=== PATIENT | female | born 1935 | race Caucasian/White ===

== ENCOUNTER 2016-06-25 07:42 | Emergency (ER) | payer MEDICARE, OTHER ==
[2016-06-25] MEDS ORDERED: FUROSEMIDE INJ/PF 40 MG/4 ML SDV IV ONE (08:38)
--- NOTE | 2016-06-25 08:43 | ER Document Report ---
ED General - General Information source: Patient TRAVEL OUTSIDE OF THE [place] IN LAST 30 DAYS: No - HPI Patient complains to provider of: Feet Swelling Onset: Last week Onset/Duration: Gradual, Persistent, Worse Associated symptoms: Nonproductive cough - Since Jul 2015, Leg swelling, Shortness of breath - with walking since Summer 2015 <GONZÁLEZ UP - Last Filed: 06/25/16 08:47> <VIRIDIANA AGUILERA - Last Filed: 06/25/16 12:26> - General Chief Complaint: Feet Swelling Stated Complaint: FOOT PAIN Notes: Patient is an 81-year-old female presenting to the emergency department concerned of swelling in her feet and lower legs. Patient states that she is always a little bit swollen, but this past week it has become severe. Patient states that the bottoms of her feet are numb, and the swelling extends all the way into her knees. Patient also mentions that she is short of breath when she walks, but this has been going on since summer. She also mentioned that she's had a cough since July 2015. Patient saw Dr. Payne 2 weeks ago and was put on oh water pill 20 mg daily, but today she took 2 of her 20 mg pills due to her fluid retention. (GONZÁLEZ UP) - Related Data Allergies/Adverse Reactions: Sulfa (Sulfonamide Antibiotics) Allergy (Intermediate, Verified 06/25/16 07:55) Generalized Itching morphine [Morphine] Adverse Reaction (Intermediate, Verified 06/25/16 07:55) Severe Nausea Past Medical History - General Information source: Patient - Social History Smoking Status: Never Smoker Chew tobacco use (# tins/day): No Frequency of alcohol use: None Drug Abuse: None Family History: Reviewed & Not Pertinent, Hypertension Patient has suicidal ideation: No Patient has homicidal ideation: No - Past Medical History Cardiac Medical History: Reports: Hx Congestive Heart Failure, Hx Hypertension - medicated Pulmonary Medical History: Reports: Hx Bronchitis Endocrine Medical History: Reports: Hx Hypothyroidism Renal/ Medical History: Reports: Hx End Stage Renal Disease - Stage IV, Hx Renal Insufficiency GI Medical History: Reports: Hx Gastritis, Hx Colonoscopy, Hx Endoscopy Musculoskeltal Medical History: Reports Hx Arthritis Past Surgical History: Reports: Hx Appendectomy, Hx Cholecystectomy, Hx Hysterectomy, Hx Orthopedic Surgery - stas tkr x 2 , foot , hand, Hx Pancreatic Surgery, Hx Thyroid Surgery - Immunizations Hx Diphtheria, Pertussis, Tetanus Vaccination: No Hx Pneumococcal Vaccination: 03/20/10 <GONZÁLEZ UP - Last Filed: 06/25/16 08:47> Review of Systems - Review of Systems Constitutional: No symptoms reported EENT: No symptoms reported Cardiovascular: No symptoms reported Respiratory: See HPI, Cough, Short of breath - when walking (since summer 2015) Gastrointestinal: No symptoms reported Genitourinary: No symptoms reported Female Genitourinary: No symptoms reported Musculoskeletal: See HPI, Leg swelling, Ankle swelling Skin: No symptoms reported Hematologic/Lymphatic: No symptoms reported Neurological/Psychological: No symptoms reported <GONZÁLEZ UP - Last Filed: 06/25/16 08:47> Physical Exam - Vital signs Interpretation: Hypertensive - General General appearance: Alert - HEENT Head: Normocephalic, Atraumatic Eyes: Normal Pupils: PERRL - Respiratory Respiratory status: No respiratory distress Chest status: Nontender Breath sounds: Rales Chest palpation: Normal - Cardiovascular Rhythm: Regular Heart sounds: Normal auscultation Murmur: Yes - Systolic Injection - Abdominal Inspection: Morbidly Obese Distension: No distension Bowel sounds: Normal Tenderness: Nontender Organomegaly: No organomegaly - Back Back: Normal, Nontender - Extremities General upper extremity: Normal inspection, Nontender, Normal color, Normal temperature General lower extremity: Nontender, Edema, Normal color, Normal ROM, Normal temperature, Normal weight bearing Calf: Other - Edema Ankle: Edema Foot: Edema - Neurological Neuro grossly intact: Yes Cognition: Normal Purdon Coma Scale Eye Opening: Spontaneous Purdon Coma Scale Verbal: Oriented Purdon Coma Scale Motor: Obeys Commands Oriana Coma Scale Total: 15 Speech: Normal - Psychological Associated symptoms: Normal affect, Normal mood - Skin Skin Temperature: Warm Skin Moisture: Dry Skin Color: Normal <GONZÁLEZ UP - Last Filed: 06/25/16 08:47> Course <GONZÁLEZ UP - Last Filed: 06/25/16 08:47> - Laboratory Result Diagrams: 06/25/16 09:00 06/25/16 09:00 - Diagnostic Test Radiology reviewed: Image reviewed, Reports reviewed - Chest x-ray does not show an acute process at this time. - EKG Interpretation by Ne EKG shows normal: Sinus rhythm, Tornado, Intervals, ST-T Waves. abnormal: QRS Complexes - Probable old inferior lateral DC is Rate: Normal - 79 Rhythm: NSR When compared to previous EKG there are: No significant change <VIRIDIANA AGUILERA - Last Filed: 06/25/16 12:26> - Re-evaluation Re-evalutation: 06/25/16 12:22 Patient has been up to urinate several times. Her room air pulse ox is 97% without tachycardia. She does have compression hose at home but she does not wear them. She was encouraged to begin using compression hose, and to elevate the feet above her heart as much as possible. She is also encouraged to follow-up with her primary care doctor in the office Tuesday for recheck. (She saw her doctor 2 weeks ago, but has not been back to see him since the swelling has started). ( VIRIDIANA AGUILERA) - Vital Signs Vital signs: Temp Pulse Resp BP Pulse Ox 97.7 F 86 15 155/98 H 98 06/25/16 07:57 06/25/16 07:57 06/25/16 11:18 06/25/16 11:18 06/25/16 11:18 (GONZÁLEZ UP) (VIRIDIANA AGUILERA) - Laboratory Laboratory results interpreted by me: 06/25/16 06/25/16 06/25/16 09:00 09:00 09:00 Hgb 11.7 L RDW 17.5 H Sodium 145.6 H BUN 32 H Creatinine 2.02 H Est GFR ( Amer) 29 L Est GFR (Non-Af Amer) 24 L NT-Pro-B Natriuret Pep 1870 H (VIRIDIANA AGUILERA) Discharge <GONZÁLEZ UP - Last Filed: 06/25/16 08:47> <VIRIDIANA AGUILERA - Last Filed: 06/25/16 12:26> - Discharge Clinical Impression: Peripheral edema, Renal insufficiency Condition: Stable Disposition: HOME, SELF-CARE Additional Instructions: Edema, Peripheral: You have swelling in your legs. This is called peripheral edema. It can be caused by "leaky capillaries," inflammation, disease of the leg veins, or excess salt and water in your body. Edema may be a sign of heart, kidney, or liver disease. A medical evaluation can determine if there is a serious underlying cause for your edema. Avoid prolonged standing. If you must sit for a long time, occasionally get up and walk around or elevate your legs. Support stockings can be helpful in limiting swelling. Often diuretic or water pills are used to remove excess salt and water from your body. Call the doctor or return if you develop increased swelling, pain, or redness, shortness of breath, chest pain, or any other significant change. ELEVATE THE FEET ABOVE YOUR HEART ALL THE TIME. USE YOUR COMPRESSION STOCKINGS. TRY TO LIMIT OR AVOID SODIUM IN YOUR DIET. FOLLOW UP WITH YOUR DOCTOR TUESDAY. RETURN TO THE EMERGENCY ROOM IF ANY NEW OR WORSENING SYMPTOMS. Referrals: TIERA LUGO MD [Primary Care Provider] - Follow up in 3-5 days Scribe Attestation: 06/25/16 12:26 I personally performed the services described in the documentation, reviewed and edited the documentation which was dictated to the scribe in my presence, and it accurately records my words and actions. (VIRIDIANA AGUILERA) Scribe Documentation - Scribe Written by Ben:: González Up 06/25/2016 08:39 acting as scribe for :: Jackie <GONZÁLEZ UP - Last Filed: 06/25/16 08:47>
[2016-06-25 09:38] LABS: ABSOLUTE EOSINOPHILS # (AUTO) 0.1 10^3/uL (0.0-0.6); ABSOLUTE LYMPHOCYTES (AUTO) 0.8 10^3/uL (0.5-4.7); ABSOLUTE MONOCYTES (AUTO) 0.6 10^3/uL (0.1-1.4); BASOPHILS % (AUTO) 0.8 % (0-2); EOSINOPHILS % (AUTO) 1.8 % (0-6); HEMATOCRIT 36.6 % (36.0-47.0); HEMOGLOBIN 11.7 g/dL (12.0-15.5); HGB HCT DIFFERENCE -1.5; LYMPHOCYTES % (AUTO) 13.7 % (13-45); MEAN CORPUSCULAR HEMOGLOBIN 30.7 pg (27.0-33.4); MEAN CORPUSCULAR HGB CONC 32.1 g/dL (32.0-36.0); MEAN CORPUSCULAR VOLUME 96 fl (80-97); MONOCYTES % (AUTO) 11.5 % (3-13); RED BLOOD COUNT 3.82 10^6/uL (3.72-5.28); RED CELL DISTRIBUTION WIDTH 17.5 % (11.5-14.0); SEGMENTED NEUTROPHILS % (AUTO) 72.2 % (42-78); WHITE BLOOD COUNT 5.5 10^3/uL (4.0-10.5)
[2016-06-25 10:04] LABS: BLOOD UREA NITROGEN 32 mg/dL (7-20); CALCIUM 9.6 mg/dL (8.4-10.2); CREATININE RESULT 2.02 mg/dL (0.52-1.25); GLUCOSE 92 mg/dL (75-110)
[2016-06-25 10:05] LABS: ALANINE AMINOTRANSFERASE 32 U/L (9-52); ALBUMIN 4.6 g/dL (3.5-5.0); ALKALINE PHOSPHATASE 61 U/L (38-126); ANION GAP 12 (5-19); ASPARTATE AMINO TRANSFERASE 35 U/L (14-36); BILIRUBIN,TOTAL 0.5 mg/dL (0.2-1.3); CARBON DIOXIDE 28 mmol/L (22-30); CHLORIDE 106 mmol/L (98-107); CREATINE KINASE 133 U/L (30-135); POTASSIUM 4.4 mmol/L (3.6-5.0); SODIUM 145.6 mmol/L (137-145); TOTAL PROTEIN 7.2 g/dL (6.3-8.2)
[2016-06-25 10:17] LABS: CREATINE KINASE MB 2.52 ng/mL (<4.55)
--- NOTE | 2016-06-25 10:18 | EKG REPORT ---
SEVERITY:- ABNORMAL ECG - SINUS RHYTHM PROBABLE INFERIOR INFARCT, OLD PROBABLE LATERAL INFARCT, OLD : Confirmed by: Perla Peralta 25-Jun-2016 10:17:41
[2016-06-25 10:24] LABS: TROPONIN I 0.046 ng/mL
[2016-06-25 13:23] VITALS: BP 131/58
== END 2016-06-25 12:52 | disposition home or self-care (01) ==
LOC: ER 07:42
DX: I12.9 Hypertensive chronic kidney disease with stage 1 through stage 4 chronic kidney disease, or unspecified chronic kidney disease (principal); N18.4 Chronic kidney disease, stage 4 (severe); R60.0 Localized edema; R05 Cough; R06.02 Shortness of breath; R20.0 Anesthesia of skin; R94.31 Abnormal electrocardiogram [ECG] [EKG]; R01.1 Cardiac murmur, unspecified; Z79.899 Other long term (current) drug therapy; Z88.2 Allergy status to sulfonamides
CPT/HCPCS: 93005; 99284; 96374; 36415; 82553; 82550; 85025; 80053; 84484; 83880; 71010; 93010; J1940

== ENCOUNTER → 2016-07-08 | Outpatient (CLI) | payer MEDICARE, OTHER ==
--- NOTE | 2016-07-08 09:16 | WOMENS IMAGING REPORT ---
EXAM DESCRIPTION: U/S ABDOMEN LIMITED COMPLETED DATE/TIME: 07/08/2016 8:23 am REASON FOR STUDY: R10.13 R10.13 EPIGASTRIC PAIN COMPARISON: MRI lumbar spine 03/11/2016 CT abdomen pelvis 09/15/2015 TECHNIQUE: Dynamic and static grayscale images acquired of the abdomen and recorded on PACS. Additio nal selected color Doppler and spectral images recorded. LIMITATIONS: Midline bowel gas, large body habitus FINDINGS: PANCREAS: Not well seen LIVER: Echogenic and difficult to penetrate with the ultrasound under G from fatty infiltration. No gross focal masses. LIVER VASCULATURE: Normal directional flow of the main portal vein and hepatic veins. GALLBLADDER: Surgically absent ULTRASOUND-DETECTED TELLEZ'S SIGN: Not applicable INTRAHEPATIC DUCTS AND COMMON DUCT: No intrahepatic biliary ductal dilatation. Common bile duct at t he law hepatis 6 to 7 mm in size. Distal most common duct not well seen. INFERIOR VENA CAVA: Not well seen AORTA: Not well seen RIGHT KIDNEY: Small, 8 cm in length with cortical thinning and increased echogenicity. 1.5 cm midpo le cyst PERITONEAL AND RIGHT PLEURAL SPACE: No ascites or effusions. OTHER: No other significant findings. TECHNICAL DOCUMENTATION: JOB ID: [id number] [employer]- All Rights Reserved
== END ==
LOC: WI 07:26
PROVIDERS: ATTEND Internal Medicine Gastroenterology
DX: R10.13 Epigastric pain (principal)
CPT/HCPCS: 76705

== ENCOUNTER → 2016-09-08 | Outpatient (CLI) | payer MEDICARE, OTHER ==
[2016-09-08 08:20] LABS: ABSOLUTE EOSINOPHILS # (AUTO) 0.4 10^3/uL (0.0-0.6); ABSOLUTE LYMPHOCYTES (AUTO) 1.5 10^3/uL (0.5-4.7); ABSOLUTE MONOCYTES (AUTO) 0.7 10^3/uL (0.1-1.4); ABSOLUTE NEUT (AUTO) 3.4 10^3/uL (1.7-8.2); BASOPHILS % (AUTO) 0.5 % (0-2); EOSINOPHILS % (AUTO) 6.1 % (0-6); HEMATOCRIT 35.9 % (36.0-47.0); HEMOGLOBIN 11.6 g/dL (12.0-15.5); HGB HCT DIFFERENCE -1.1; LYMPHOCYTES % (AUTO) 25.3 % (13-45); MEAN CORPUSCULAR HGB CONC 32.4 g/dL (32.0-36.0); MEAN CORPUSCULAR VOLUME 86 fl (80-97); MONOCYTES % (AUTO) 12.2 % (3-13); RED BLOOD COUNT 4.17 10^6/uL (3.72-5.28); SEGMENTED NEUTROPHILS % (AUTO) 55.9 % (42-78)
[2016-09-08 08:44] LABS: ALBUMIN 4.4 g/dL (3.5-5.0); ANION GAP 15 (5-19); BLOOD UREA NITROGEN 37 mg/dL (7-20); CARBON DIOXIDE 26 mmol/L (22-30); CHLORIDE 101 mmol/L (98-107); CREATININE RESULT 2.19 mg/dL (0.52-1.25); GLUCOSE 97 mg/dL (75-110); PHOSPHORUS 4.7 mg/dL (2.5-4.5); POTASSIUM 4.6 mmol/L (3.6-5.0); SODIUM 141.7 mmol/L (137-145)
[2016-09-09 10:20] LABS: VITAMIN D 25-HYDROXY 24.9 ng/mL (30.0-100.0)
[2016-09-09 11:40] LABS: CREATININE URINE 178.5 mg/dL (Not Estab.); MICROALBUMIN URINE 73.6 ug/mL (Not Estab.)
== END ==
LOC: OD 07:04
PROVIDERS: ATTEND Internal Medicine Nephrology
DX: N18.4 Chronic kidney disease, stage 4 (severe) (principal); N25.81 Secondary hyperparathyroidism of renal origin; D50.9 Iron deficiency anemia, unspecified
CPT/HCPCS: 36415; 80048; 82040; 82043; 82306; 82570; 83970; 84100; 85025

== ENCOUNTER → 2016-10-05 | Outpatient (CLI) | payer MEDICARE, OTHER | LOC: RAD 14:58 | PROVIDERS: ATTEND Specialist | DX: R05 Cough (principal); R06.02 Shortness of breath; R09.89 Other specified symptoms and signs involving the circulatory and respiratory systems | CPT/HCPCS: 71020 ==

== ENCOUNTER 2016-10-19 10:05 | Inpatient (IN) | payer MEDICARE, OTHER ==
--- NOTE | 2016-10-19 10:29 | ER Document Report ---
ED Medical Screen (RME) - General Chief Complaint: Black/Tarry Stools Stated Complaint: POSSIBLE BLOOD IN STOOL Time seen by provider: 10:28 Mode of Arrival: Ambulatory Information source: Patient Notes: This is an 81-year-old female with a history of hypertension, hypothyroidism, anemia (iron infusions by Dr. Choi), GI bleeding in the past (has been scoped in the past by Dr. Padron), arthritis. The patient presents with an episode of black stools yesterday. Patient states that she was coughing a lot this morning and started coughing up blood. The patient is unsure if it was in the vomitus or actually from the lungs.\ Primary care physician: Dr. Mcdonald TRAVEL OUTSIDE OF THE [place] IN LAST 30 DAYS: No - Related Data Allergies/Adverse Reactions: Sulfa (Sulfonamide Antibiotics) Allergy (Intermediate, Verified 10/19/16 10:22) Generalized Itching morphine [Morphine] Adverse Reaction (Intermediate, Verified 10/19/16 10:22) Severe Nausea Past Medical History - Past Medical History Cardiac Medical History: Reports: Hx Congestive Heart Failure, Hx Hypertension - medicated Pulmonary Medical History: Reports: Hx Bronchitis Endocrine Medical History: Reports: Hx Hypothyroidism Renal/ Medical History: Reports: Hx End Stage Renal Disease - Stage IV, Hx Renal Insufficiency. Denies: Hx Peritoneal Dialysis GI Medical History: Reports: Hx Gastritis, Hx Colonoscopy, Hx Endoscopy Musculoskeltal Medical History: Reports Hx Arthritis Past Surgical History: Reports: Hx Appendectomy, Hx Cholecystectomy, Hx Hysterectomy, Hx Orthopedic Surgery - stas tkr x 2 , foot , hand, Hx Pancreatic Surgery, Hx Thyroid Surgery - Immunizations Hx Diphtheria, Pertussis, Tetanus Vaccination: No Physical Exam - Vital signs Vitals: Temp Pulse Resp BP Pulse Ox 97.6 F 75 18 120/61 100 10/19/16 10:12 10/19/16 10:12 10/19/16 10:12 10/19/16 10:12 10/19/16 10:12 Course - Vital Signs Vital signs: Temp Pulse Resp BP Pulse Ox 97.6 F 75 18 120/61 100 10/19/16 10:19 10/19/16 10:12 10/19/16 10:19 10/19/16 10:19 10/19/16 10:19
[2016-10-19 11:27] LABS: ABSOLUTE BASOPHILS # (AUTO) 0.1 10^3/uL (0.0-0.2); ABSOLUTE EOSINOPHILS # (AUTO) 0.1 10^3/uL (0.0-0.6); ABSOLUTE LYMPHOCYTES (AUTO) 1.1 10^3/uL (0.5-4.7); ABSOLUTE MONOCYTES (AUTO) 0.7 10^3/uL (0.1-1.4); ABSOLUTE NEUT (AUTO) 4.8 10^3/uL (1.7-8.2); BASOPHILS % (AUTO) 1.1 % (0-2); EOSINOPHILS % (AUTO) 1.5 % (0-6); HEMATOCRIT 28.8 % (36.0-47.0); HEMOGLOBIN 9.4 g/dL (12.0-15.5); HGB HCT DIFFERENCE -0.6; LYMPHOCYTES % (AUTO) 16.7 % (13-45); MEAN CORPUSCULAR HEMOGLOBIN 26.8 pg (27.0-33.4); MEAN CORPUSCULAR HGB CONC 32.5 g/dL (32.0-36.0); MEAN CORPUSCULAR VOLUME 83 fl (80-97); MONOCYTES % (AUTO) 9.9 % (3-13); RED BLOOD COUNT 3.49 10^6/uL (3.72-5.28); RED CELL DISTRIBUTION WIDTH 15.6 % (11.5-14.0); SEGMENTED NEUTROPHILS % (AUTO) 70.8 % (42-78); WHITE BLOOD COUNT 6.7 10^3/uL (4.0-10.5)
--- NOTE | 2016-10-19 11:28 | ER Document Report ---
ED GI Bleed / Rectal Pain - General Chief Complaint: Black/Tarry Stools Stated Complaint: POSSIBLE BLOOD IN STOOL Time seen by provider: 10:45 Mode of Arrival: Ambulatory Information source: Patient Notes: 81-year-old female presented to ED for history of high blood pressure hypothyroid anemia and GI bleeding in the past has been scoped arthritis end- stage renal disease and congestive heart failure high blood pressure pancreatitis and arthritis. She's also has a history of gastritis and diverticulitis. She is in here today for dark blood in her stools yesterday and this morning TRAVEL OUTSIDE OF THE [place] IN LAST 30 DAYS: No - HPI Patient complains to provider of: Dark/tarry stools Onset: Yesterday Timing/Duration: Intermittent Quality of pain: Achy - Chronic pain to back or arms and legs no complaint of abdominal pain today Rectal bleeding: Blood streaks on stool Dark Stools: Black Rectal foreign body: No Rectal pain with intercourse: No Associated symptoms: Back pain, Bruising/bleeding gums Exacerbated by: Denies Relieved by: Denies Similar symptoms previously: Yes Recently seen / treated by doctor: Yes - Related Data Allergies/Adverse Reactions: Sulfa (Sulfonamide Antibiotics) Allergy (Intermediate, Verified 10/19/16 10:22) Generalized Itching morphine [Morphine] Adverse Reaction (Intermediate, Verified 10/19/16 10:22) Severe Nausea Home Medications: Current Home Medications Benzonatate [Tessalon Perle 100 mg Capsule] 100 mg PO QAM 10/19/16 [History] Benzonatate [Tessalon Perle 100 mg Capsule] 200 mg PO QPM 10/19/16 [History] Calcium Acetate [Phoslo 667 mg Capsule] 667 mg PO MEALS 10/19/16 [History] Cyclosporine 0.05% Oph Emulsio [Restasis 0.05% Oph Emulsion Pf 0.4 ml] 1 drop OU BID 10/19/16 [History] Fexofenadine HCl [Noemí] 180 mg PO DAILY 10/19/16 [History] Furosemide [Lasix] 20 mg PO QAM 10/19/16 [History] Gabapentin [Neurontin] 600 mg PO QHS 10/19/16 [History] Levothyroxine Sodium [Synthroid] 50 mcg PO QAM 10/19/16 [History] Loteprednol Etabonate [Lotemax 0.5% Ophth Susp] 1 drop OU QPM 10/19/16 [History] Lubiprostone [Amitiza 8 Mcg Capsule] 8 mcg PO DAILY 10/19/16 [History] Mirabegron [Myrbetriq] 50 mg PO DAILY 10/19/16 [History] Pantoprazole Sodium [Protonix] 40 mg PO BID 10/19/16 [History] Pregabalin [Lyrica 50 mg Capsule] 50 mg PO Q12 10/19/16 [History] Sennosides [Senna] 8.6 mg PO BID 10/19/16 [History] Temazepam [Restoril] 30 mg PO QHS 10/19/16 [History] Tramadol HCl [Ultram] 50 mg PO Q6HP PRN 10/19/16 [History] Valsartan [Diovan 160 mg Tablet] 160 mg PO Q12 10/19/16 [History] Past Medical History - General Information source: Patient - Social History Smoking Status: Former Smoker Cigarette use (# per day): No Chew tobacco use (# tins/day): No Smoking Education Provided: No Frequency of alcohol use: None Drug Abuse: None Occupation: retired Lives with: Family Family History: CAD, Hypertension Patient has suicidal ideation: No Patient has homicidal ideation: No - Past Medical History Cardiac Medical History: Reports: Hx Congestive Heart Failure, Hx Hypertension - medicated Pulmonary Medical History: Reports: Hx Bronchitis EENT Medical History: Reports: None Neurological Medical History: Reports: None Endocrine Medical History: Reports: Hx Hypothyroidism Renal/ Medical History: Reports: Hx End Stage Renal Disease - Stage IV, Hx Renal Insufficiency Malignancy Medical History: Reports: None GI Medical History: Reports: Hx Diverticulitis, Hx Gastritis, Hx Colonoscopy, Hx Endoscopy, Other - Pancreatitis Musculoskeltal Medical History: Reports Hx Arthritis, Reports Hx Musculoskeletal Deformity, Reports Hx Musculoskeletal Trauma Skin Medical History: Reports None Psychiatric Medical History: Reports: None Traumatic Medical History: Reports: None Infectious Medical History: Reports: None Past Surgical History: Reports: Hx Appendectomy, Hx Cholecystectomy, Hx Hysterectomy, Hx Orthopedic Surgery - stas tkr x 2 , foot , hand, Hx Pancreatic Surgery, Hx Thyroid Surgery - Immunizations Hx Diphtheria, Pertussis, Tetanus Vaccination: No Hx Pneumococcal Vaccination: 03/20/10 Review of Systems - Review of Systems Constitutional: No symptoms reported EENT: No symptoms reported Cardiovascular: No symptoms reported Respiratory: No symptoms reported Gastrointestinal: No symptoms reported Genitourinary: No symptoms reported Female Genitourinary: No symptoms reported Musculoskeletal: Back pain - Chronic, Joint pain - Chronic, Muscle pain - Chronic, Muscle stiffness - Chronic Skin: No symptoms reported Hematologic/Lymphatic: No symptoms reported Neurological/Psychological: No symptoms reported -: Yes All other systems reviewed and negative Physical Exam - Vital signs Vitals: Temp Pulse Resp BP Pulse Ox 97.6 F 75 18 120/61 100 10/19/16 10:12 10/19/16 10:12 10/19/16 10:12 10/19/16 10:12 10/19/16 10:12 Interpretation: Normal - General General appearance: Appears well, Alert - HEENT Head: Normocephalic, Atraumatic Eyes: Normal Pupils: PERRL - Respiratory Respiratory status: No respiratory distress Chest status: Nontender Breath sounds: Normal Chest palpation: Normal - Cardiovascular Rhythm: Regular Heart sounds: Normal auscultation Murmur: No - Abdominal Inspection: Normal Distension: No distension Bowel sounds: Normal Tenderness: Nontender Organomegaly: No organomegaly - Back Back: Normal, Nontender - Extremities General upper extremity: Normal inspection, Nontender, Normal color, Normal ROM , Normal temperature General lower extremity: Normal inspection, Nontender, Normal color, Normal ROM , Normal temperature, Normal weight bearing. No: Tyrone's sign - Neurological Neuro grossly intact: Yes Cognition: Normal Orientation: AAOx4 Mcfarland Coma Scale Eye Opening: Spontaneous Mcfarland Coma Scale Verbal: Oriented Oriana Coma Scale Motor: Obeys Commands Oriana Coma Scale Total: 15 Speech: Normal Motor strength normal: LUE, RUE, LLE, RLE Sensory: Normal - Psychological Associated symptoms: Normal affect, Normal mood - Skin Skin Temperature: Warm Skin Moisture: Dry Skin Color: Normal Course - Re-evaluation Re-evalutation: 10/19/16 12:12 Just called operated to consult Dr. Chand concerning her renal patient who states that she has refused dialysis and today she has a potassium of 6.0. 10/19/16 12:[address] Toth who recommended contacting Dr. Padron. Dr. Padron was consult that he stated he would be a consult if the patient is admitted. Consulted Dr. Chand who will be consult for this patient if she is admitted. Consulted Dr. Robert to admit the patient. Patient will be admitted to [facility] she will receive glucose 1 amp insulin 10 units IV 1 amp of calcium gluconate and albuterol nebulizers to reduce her potassium. She will also receive 500 mL of normal saline and been started on a renal diet. - Vital Signs Vital signs: Temp Pulse Resp BP Pulse Ox 97.6 F 75 15 122/51 L 100 10/19/16 10:19 10/19/16 10:12 10/19/16 16:00 10/19/16 15:01 10/19/16 16:00 - Laboratory Result Diagrams: 10/19/16 11:15 10/19/16 11:15 Laboratory results interpreted by me: 10/19/16 10/19/16 11:15 11:15 RBC 3.49 L Hgb 9.4 L Hct 28.8 L MCH 26.8 L RDW 15.6 H Potassium 6.0 H* Carbon Dioxide 21 L BUN 104 H Creatinine 5.62 H Est GFR ( Amer) 9 L Est GFR (Non-Af Amer) 7 L Discharge - Discharge Clinical Impression: Black tarry stools, Hyperkalemia Disposition: ADMITTED OBSERVATION Admitting Provider: Hospitalist - Dr Robert Unit Admitted: [facility]
[2016-10-19 11:32] LABS: PROTHROMBIN TIME 13.1 SEC (11.4-15.4)
[2016-10-19 11:52] LABS: ALANINE AMINOTRANSFERASE 30 U/L (9-52); ALBUMIN 3.8 g/dL (3.5-5.0); ALKALINE PHOSPHATASE 83 U/L (38-126); ANION GAP 14 (5-19); ASPARTATE AMINO TRANSFERASE 29 U/L (14-36); BILIRUBIN,DIRECT 0.4 mg/dL (0.0-0.4); BILIRUBIN,TOTAL 0.5 mg/dL (0.2-1.3); BLOOD UREA NITROGEN 104 mg/dL (7-20); CALCIUM 9.2 mg/dL (8.4-10.2); CARBON DIOXIDE 21 mmol/L (22-30); CHLORIDE 106 mmol/L (98-107); CREATININE RESULT 5.62 mg/dL (0.52-1.25); GLUCOSE 96 mg/dL (75-110); TOTAL PROTEIN 6.4 g/dL (6.3-8.2)
[2016-10-19] MEDS ORDERED: INSULIN REG, HUMAN 100 UNIT/ML 3 ML VIAL (PYX) IV ONE (12:36)
[2016-10-19] MEDS ORDERED: CALCIUM GLUCONATE 1000 MG/10 ML INJ IV ONE (12:38)
[2016-10-19] MEDS ORDERED: DEXTROSE 50%-WATER 25 GM/50 ML DISP.SYRIN IV ONE (12:38)
[2016-10-19] MEDS ORDERED: SODIUM POLYSTYRENE SULFONATE 15 GM/60 ML PO ONE (12:39)
[2016-10-19] MEDS ORDERED: ALBUTEROL SULFATE 0.083% NEB 2.5 MG/3 ML AMPUL NEB ONE (12:39)
[2016-10-19] MEDS ORDERED: NORMAL SALINE 500 ML IV ONE (13:10)
--- NOTE | 2016-10-19 13:20 | EKG REPORT ---
SEVERITY:- ABNORMAL ECG - SINUS RHYTHM ANTEROLATERAL INFARCT, OLD : Confirmed by: Lloyd Lockwood MD 19-Oct-2016 13:19:47
[2016-10-19] MEDS ORDERED: 1/2 NORMAL SALINE 1,000 ML IV PRN (14:26)
[2016-10-19 14:30] LABS: APPEARANCE,URINE CLEAR; BILIRUBIN,URINE NEGATIVE (NEGATIVE); GLUCOSE, URINE NEGATIVE (NEGATIVE); KETONES,URINE NEGATIVE (NEGATIVE); LEUKOCYTE ESTERASE,URINE NEGATIVE (NEGATIVE); NITRITE,URINE NEGATIVE (NEGATIVE); PROTEIN,URINE NEGATIVE (NEGATIVE); UROBILINOGEN,URINE NEGATIVE mg/dL (<2.0)
[2016-10-19] MEDS ORDERED: ONDANSETRON HCL INJ/PF 4 MG/2 ML SDV IV PRN (14:32)
--- NOTE | 2016-10-19 14:51 | PDOC H&P ---
History of Present Illness Admission Date/PCP: 10/19/16 12:52 TIERA LUGO MD Patient complains of: Black stools History of Present Illness: TARAN MANZANARES is a 81 year old female, with prior history of GI bleeding in the past, has been dealing with black stools for the last 6 months. Patient started to develop some dizziness 2 months ago. There is no hematemesis, no hematochezia. There is no vaginal bleeding, nor hematuria. Patient has been complaining of multiple nonspecific symptoms for a long period of time including headache, body aches and pain, shoulder aches and pain, knee pains, back pain, chronic cough, chronic shortness of breath, dyspnea on exertion. Denies any chest pain at rest, nor any PND nor orthopnea. Patient also had lower extremity edema chronically. History of chronic kidney disease in the past, and has refused dialysis. He presents to the emergency room today because of just generalized discomfort and black stools. Denies overuse of nonsteroidal [id number]. She does not remember all her medications at this time. In the emergency room, the urine was elevated, as well as potassium. Still appropriate blood was positive. Patient was then referred for admission. Patient received albuterol, insulin D50, calcium, Kayexalate. Past Medical History Past Medical History: Medication reconciliation pending verification from the patient's pharmacist. Cardiac Medical History: Reports: Congestive Heart Failure, Hypertension - medicated Pulmonary Medical History: Reports: Bronchitis EENT Medical History: Reports: None Neurological Medical History: Reports: None Endocrine Medical History: Reports: Hypothyroidism Renal/ Medical History: Reports: End Stage Renal Disease - Stage IV Malignancy Medical History: Reports: None GI Medical History: Reports: Diverticulitis, Other - Pancreatitis Musculoskeltal Medical History: Reports: Arthritis Skin Medical History: Reports: None Psychiatric Medical History: Reports: None Traumatic Medical History: Reports: None Hematology: Reports: Bleeding Tendencies Denies: Anemia, Sickle Cell Disease Infectious Medical History: Reports: None Past Surgical History Past Surgical History: Reports: Appendectomy, Cholecystectomy, Hysterectomy, Orthopedic Surgery - stas tkr x 2 , foot , hand Denies: Amputation Social History Information Source: Patient Lives with: Family Smoking Status: Former Smoker Frequency of Alcohol Use: None Hx Recreational Drug Use: No Drugs: None Hx Prescription Drug Abuse: No Family History Family History: CAD, Hypertension, Malignancy - Unrecalled type Parental Family History Reviewed: Yes Children Family History Reviewed: Yes Sibling(s) Family History Reviewed.: Yes Medication/Allergy Allergies/Adverse Reactions: Sulfa (Sulfonamide Antibiotics) Allergy (Intermediate, Verified 10/19/16 10:22) Generalized Itching morphine [Morphine] Adverse Reaction (Intermediate, Verified 10/19/16 10:22) Severe Nausea Review of Systems Constitutional: PRESENT: headache(s) - Chronic intermittent. ABSENT: chills, fever(s), weight gain, weight loss Eyes: PRESENT: visual disturbances Ears: ABSENT: hearing changes Nose, Mouth, and Throat: ABSENT: mouth pain, sore throat Cardiovascular: PRESENT: dyspnea on exertion, edema. ABSENT: chest pain, orthropnea, palpitations Respiratory: PRESENT: cough - Occasional. ABSENT: hemoptysis Gastrointestinal: PRESENT: melena. ABSENT: abdominal pain, coffee ground emesis , constipation, diarrhea, hematemesis, hematochezia, nausea, vomiting Genitourinary: ABSENT: difficulty urinating, dysuria, hematuria Musculoskeletal: PRESENT: other - Generalized muscle aches and pain and joint pain. ABSENT: joint swelling Integumentary: ABSENT: rash, wounds Neurological: ABSENT: abnormal gait, abnormal speech, confusion, dizziness, focal weakness, syncope Psychiatric: ABSENT: anxiety, depression, homidical ideation, suicidal ideation Endocrine: ABSENT: cold intolerance, heat intolerance, polydipsia, polyuria Hematologic/Lymphatic: ABSENT: easy bleeding, easy bruising Physical Exam Vital Signs: Temp Pulse Resp BP Pulse Ox 97.6 F 75 18 116/77 100 10/19/16 10:19 10/19/16 10:12 10/19/16 14:01 10/19/16 14:01 10/19/16 14:01 General appearance: PRESENT: no acute distress, cooperative, morbidly obese Head exam: PRESENT: atraumatic, normocephalic Eye exam: PRESENT: conjunctiva pink, EOMI, PERRLA - Sluggish however. ABSENT: scleral icterus Ear exam: PRESENT: normal external ear exam. ABSENT: drainage Mouth exam: PRESENT: moist, neck supple, tongue midline Neck exam: ABSENT: carotid bruit, JVD, lymphadenopathy, thyromegaly Respiratory exam: PRESENT: clear to auscultation stas. ABSENT: rales, rhonchi, wheezes Cardiovascular exam: PRESENT: RRR. ABSENT: diastolic murmur, rubs, systolic murmur Pulses: PRESENT: normal dorsalis pedis pul Vascular exam: PRESENT: normal capillary refill GI/Abdominal exam: PRESENT: hypoactive bowel sounds, soft. ABSENT: distended, guarding, mass - Exam is limited just increased abdominal girth, organolmegaly, rebound, tenderness Rectal exam: PRESENT: deferred Extremities exam: PRESENT: full ROM, pedal edema - Trace. ABSENT: calf tenderness, clubbing Neurological exam: PRESENT: alert, awake, oriented to person, oriented to place , oriented to time, oriented to situation Psychiatric exam: PRESENT: appropriate affect, normal mood. ABSENT: homicidal ideation, suicidal ideation Skin exam: PRESENT: dry, intact, warm. ABSENT: cyanosis, rash Results Laboratory Results: 10/19/16 14:05 Urine Color STRAW Urine Appearance CLEAR Urine pH 5.0 Ur Specific Carey 1.010 Urine Protein NEGATIVE Urine Glucose (UA) NEGATIVE Urine Ketones NEGATIVE Urine Blood NEGATIVE Urine Nitrite NEGATIVE Ur Leukocyte Esterase NEGATIVE Urine WBC (Auto) 2 Urine RBC (Auto) 1 Impressions: Chest X-Ray 10/19/16 10:30 IMPRESSION: NO ACUTE RADIOGRAPHIC FINDING IN THE CHEST. Assessment & Plan - Diagnosis (1) Black tarry stools Is this a current diagnosis for this admission?: Yes (2) Hyperkalemia Is this a current diagnosis for this admission?: Yes (3) Anemia Qualifiers: Anemia type: unspecified type Qualified Code(s): D64.9 - Anemia, unspecified (4) CKD (chronic kidney disease) stage 4, GFR 15-29 ml/min Is this a current diagnosis for this admission?: Yes (5) Congestive heart failure (CHF) Qualifiers: Congestive heart failure type: diastolic Congestive heart failure chronicity: unspecified congestive heart failure chronicity Qualified Code(s): I50.30 - Unspecified diastolic (congestive) heart failure Is this a current diagnosis for this admission?: Yes (8) Obstructive sleep apnea Is this a current diagnosis for this admission?: Yes (9) GERD (gastroesophageal reflux disease) Qualifiers: Esophagitis presence: esophagitis presence not specified Qualified Code(s): K21.9 - Gastro-esophageal reflux disease without esophagitis Is this a current diagnosis for this admission?: Yes (10) Seasonal allergies Qualifiers: Allergic rhinitis trigger: unspecified Qualified Code(s): J30.2 - Other seasonal allergic rhinitis Is this a current diagnosis for this admission?: Yes - Time Time Spent: 30 to 50 Minutes - Inpatient Certification Based on my medical assessment, after consideration of the patient's comorbidities, presenting symptoms, or acuity I expect that the services needed warrant INPATIENT care.: Yes I certify that my determination is in accordance with my understanding of Medicare's requirements for reasonable and necessary INPATIENT services [42 CFR 412.3e].: Yes Medical Necessity: Significant Comorbidiites Make Outpatient Treatment Too Risky , Need For IV Fluids, Need For Continuous Telemetry Monitoring - Plan Summary Plan Summary: Patient will be admitted to [facility]. Patient received albuterol, dextrose , insulin intravenously, calcium and Kayexalate in the emergency room. We will recheck potassium in 3-4 hours later. In the meantime we will consult nephrology for the renal failure. I will gently hydrate the patient, consult gastroenterology for further evaluation, start intravenous proton pump inhibitor , monitor hematocrit serially and transfuse as needed. VENKAT edwards and SCDs for DVT prophylaxis. Further testing depends and initial evaluation and per specialty recommendation as outlined above.
[2016-10-19 16:17] LABS: THYROID STIMULATING HORMONE 2.56 uIU/mL (0.47-4.68)
[2016-10-19] MEDS: ACETAMINOPHEN 325 MG TABLET PO PRN (16:24)
[2016-10-19] MEDS: DOCUSATE SODIUM 100 MG CAPSULE PO SCH (18:02)
[2016-10-19] MEDS: PANTOPRAZOLE SODIUM 40 MG VIAL IV SCH (21:55)
[2016-10-19] MEDS: HEPARIN SOD (PORCINE) 5,000 UNIT/ML 1 ML SYRINGE SUBCUT SCH (21:58)
[2016-10-20] MEDS: HEPARIN SOD (PORCINE) 5,000 UNIT/ML 1 ML SYRINGE SUBCUT SCH ×3 (05:07→21:38)
[2016-10-20 05:15] LABS: ABSOLUTE BASOPHILS # (AUTO) 0.1 10^3/uL (0.0-0.2); ABSOLUTE EOSINOPHILS # (AUTO) 0.2 10^3/uL (0.0-0.6); ABSOLUTE LYMPHOCYTES (AUTO) 1.6 10^3/uL (0.5-4.7); ABSOLUTE MONOCYTES (AUTO) 0.8 10^3/uL (0.1-1.4); ABSOLUTE NEUT (AUTO) 4.4 10^3/uL (1.7-8.2); BASOPHILS % (AUTO) 0.8 % (0-2); EOSINOPHILS % (AUTO) 2.2 % (0-6); HEMATOCRIT 25.4 % (36.0-47.0); HEMOGLOBIN 8.4 g/dL (12.0-15.5); HGB HCT DIFFERENCE -0.2; LYMPHOCYTES % (AUTO) 23.1 % (13-45); MEAN CORPUSCULAR HEMOGLOBIN 27.3 pg (27.0-33.4); MEAN CORPUSCULAR VOLUME 83 fl (80-97); MONOCYTES % (AUTO) 11.6 % (3-13); RED BLOOD COUNT 3.07 10^6/uL (3.72-5.28); RED CELL DISTRIBUTION WIDTH 15.7 % (11.5-14.0); SEGMENTED NEUTROPHILS % (AUTO) 62.3 % (42-78)
[2016-10-20 05:53] LABS: ANION GAP 13 (5-19); BLOOD UREA NITROGEN 102 mg/dL (7-20); CALCIUM 8.8 mg/dL (8.4-10.2); CARBON DIOXIDE 19 mmol/L (22-30); CHLORIDE 108 mmol/L (98-107); CREATININE RESULT 5.26 mg/dL (0.52-1.25); GLUCOSE 86 mg/dL (75-110); POTASSIUM 5.2 mmol/L (3.6-5.0); SODIUM 139.6 mmol/L (137-145)
[2016-10-20] MEDS: PANTOPRAZOLE SODIUM 40 MG VIAL IV SCH (09:37)
[2016-10-20] MEDS: DOCUSATE SODIUM 100 MG CAPSULE PO SCH ×2 (09:37→17:53)
--- NOTE | 2016-10-20 10:51 | PDOC PROGRESS REPORT ---
Subjective Progress Note for:: 10/20/16 Subjective:: Patient has cough. Been dealing with this for about 2 months. No shortness of breath, PND or orthopnea. Had and episode of vomiting the other day. Patient reports small amount of fresh blood. Stools has been chronically dark /black for several months. Due for iron infusion with Dr. Choi in the morning Physical Exam Vital Signs: Temp Pulse Resp BP Pulse Ox 98.7 F 74 20 115/62 100 10/20/16 08:00 10/20/16 08:00 10/20/16 08:00 10/20/16 08:00 10/20/16 08:00 Intake & Output 10/19/16 10/20/16 10/21/16 06:59 06:59 06:59 Intake Total 5 Balance 5 Weight 105 kg General appearance: PRESENT: no acute distress, obese Head exam: PRESENT: normocephalic Eye exam: PRESENT: EOMI, PERRLA Mouth exam: PRESENT: moist, neck supple Neck exam: ABSENT: JVD Respiratory exam: PRESENT: rhonchi - few bilateral Cardiovascular exam: PRESENT: RRR. ABSENT: gallop GI/Abdominal exam: PRESENT: soft. ABSENT: distended - Obese, tenderness Extremities exam: ABSENT: pedal edema Neurological exam: PRESENT: alert, awake, oriented to situation Skin exam: PRESENT: dry, warm. ABSENT: cyanosis Results Laboratory Results: 10/20/16 04:25 10/20/16 04:25 10/19/16 10/19/16 10/19/16 18:25 19:03 19:03 WBC RBC Hgb Hct MCV MCH MCHC RDW Plt Count Seg Neutrophils % Lymphocytes % Monocytes % Eosinophils % Basophils % Absolute Neutrophils Absolute Lymphocytes Absolute Monocytes Absolute Eosinophils Absolute Basophils Sodium Potassium 5.3 H Chloride Carbon Dioxide Anion Gap BUN Creatinine Est GFR ( Amer) Est GFR (Non-Af Amer) Glucose Calcium Stool Occult Blood POSITIVE Stool for White Cells NO WBCs SEEN 10/20/16 10/20/16 04:25 04:25 WBC 7.0 RBC 3.07 L Hgb 8.4 L Hct 25.4 L MCV 83 MCH 27.3 MCHC 33.0 RDW 15.7 H Plt Count 139 L Seg Neutrophils % 62.3 Lymphocytes % 23.1 Monocytes % 11.6 Eosinophils % 2.2 Basophils % 0.8 Absolute Neutrophils 4.4 Absolute Lymphocytes 1.6 Absolute Monocytes 0.8 Absolute Eosinophils 0.2 Absolute Basophils 0.1 Sodium 139.6 Potassium 5.2 H Chloride 108 H Carbon Dioxide 19 L Anion Gap 13 BUN 102 H Creatinine 5.26 H Est GFR ( Amer) 9 L Est GFR (Non-Af Amer) 8 L Glucose 86 Calcium 8.8 Stool Occult Blood Stool for White Cells Impressions: Chest X-Ray 10/19/16 10:30 IMPRESSION: NO ACUTE RADIOGRAPHIC FINDING IN THE CHEST. Assessment & Plan - Diagnosis (1) Black tarry stools Is this a current diagnosis for this admission?: Yes (2) Hyperkalemia Is this a current diagnosis for this admission?: Yes (3) Anemia Qualifiers: Anemia type: unspecified type Qualified Code(s): D64.9 - Anemia, unspecified (4) CKD (chronic kidney disease) stage 4, GFR 15-29 ml/min Is this a current diagnosis for this admission?: Yes (5) Congestive heart failure (CHF) Qualifiers: Congestive heart failure type: diastolic Congestive heart failure chronicity: unspecified congestive heart failure chronicity Qualified Code(s): I50.30 - Unspecified diastolic (congestive) heart failure Is this a current diagnosis for this admission?: Yes (8) Obstructive sleep apnea Is this a current diagnosis for this admission?: Yes (9) GERD (gastroesophageal reflux disease) Qualifiers: Esophagitis presence: esophagitis presence not specified Qualified Code(s): K21.9 - Gastro-esophageal reflux disease without esophagitis Is this a current diagnosis for this admission?: Yes (10) Seasonal allergies Qualifiers: Allergic rhinitis trigger: unspecified Qualified Code(s): J30.2 - Other seasonal allergic rhinitis Is this a current diagnosis for this admission?: Yes - Time Time Spent with patient: 25-34 minutes - Plan Summary Plan Summary: Give Kayexalate and recheck potassium. Discontinue intravenous fluid. We will increase diuretic when blood pressure permits. For upper endoscopy today. Continue proton pump inhibitor. Recheck hemoglobin and hematocrit in the morning and transfuse as needed. Consult hematology for iron infusion. Continue supportive care.
[2016-10-20] MEDS ORDERED: SODIUM POLYSTYRENE SULFONATE 15 GM/60 ML PO ONE (11:15)
[2016-10-20] MEDS ORDERED: NORMAL SALINE 1000 ML 1,000 ML IV ONE (15:40)
--- NOTE | 2016-10-20 16:06 | PDOC CONSULTATION ---
Consultation Consult Date: 10/20/16 Attending physician:: SERGEY ROBERT Consult reason:: I was asked by Dr. Robert to see this patient because of renal failure on top of known chronic kidney disease. History of Present Illness Admission Date/PCP: 10/19/16 14:26 TIERA LUGO MD History of Present Illness: TARAN MANZANARES is a 81 year old female, with prior history of GI bleeding in the past, has been dealing with black stools for the last 6 months. Patient started to develop some dizziness 2 months ago. She said she was worried yesterday because she vomited bright red blood once, about half a cup which prompted her to go to the emergency room. There is no hematochezia. There is no vaginal bleeding, nor hematuria. Patient has been complaining of multiple nonspecific symptoms for a long period of time including headache, body aches and pain, shoulder aches and pain, knee pains, back pain, chronic cough for at least 2 months, chronic shortness of breath, dyspnea on exertion. Denies any chest pain at rest, nor any PND nor orthopnea. Patient also had lower extremity edema chronically. History of chronic kidney disease stage IV in the past, and has refused dialysis. She presents to the emergency room today because of just generalized discomfort and black stools. Denies overuse of nonsteroidal [id number]. She does not remember all her medications at this time. In the emergency room, she has elevated potassium of 6. Stool for occult blood was positive. Patient was then admitted. Patient received albuterol, insulin D50, calcium, Kayexalate. She was given 500 mL of IV fluid bolus but nothing since. Her chest x-ray is clear. Patient's baseline creatinine is around 2+. Her baseline EGFR has been on the low 20s. Last time I saw her in August, she had a BUN of 37 creatinine of 2.19 with estimated GFR of 22 taken on 09/08/2016. On admission yesterday she had a BUN of 104 creatinine 5.62 with estimated GFR of 7. Today she had a BUN of 1 O2 creatinine of 5.26 with estimated GFR of 8. Patient is still nothing by mouth because of the planned EGD this afternoon. She doesn't have any IV fluids currently. Her urine output is minimal. Patient is told me in the past that she will not ever go to dialysis because of what she has experienced with his grandson who was on hemodialysis years ago. I talked to her again today and she refused to be on dialysis under any circumstances even if it means . Patient claims that her urine output is decreased but that's because of the Mybertriq. She denies any decrease in any oral intake of both solids and liquids prior to admission. The only concern and complaint that she has currently is constipation. Patient is also known baseline anemia due to iron deficiency and chronic kidney disease. She has received IV iron infusion last care of Dr. Choi and is supposed to receive the second dose tomorrow. Currently she doesn't seem to be actively bleeding. Past Medical History Cardiac Medical History: Reports: CHF-Systolic, Coronary Artery Disease, Hypertension-primary, Other - Varicose veins Pulmonary Medical History: Reports: Bronchitis, Sleep Apnea EENT Medical History: Reports: Ears - Decreased hearing, Other - Age-related macular degeneration, left eye blindness Neurological Medical History: Reports: Other - Restless leg syndrome Endocrine Medical History: Reports: Hypothyroidism, Other - History of goiter Complications of Diabetes: Reports: Autonomic Neuropathy Renal/ Medical History: Reports: Chronic Kidney Disease Stage IV, Hyperphosphatemia, Recurrent UTI, Secondary Hyperparathyroidism Malignancy Medical History: Reports: Skin Cancer - Squamous cell GI Medical History: Reports: Diverticulitis, Gastroesophageal Reflux Disease - With hiatal hernia, Peptic Ulcer Disease, Other - Pancreatitis, internal hemorrhoids Musculoskeltal Medical History: Reports: Arthritis Hematology Medical History: Reports Anemia of Chronic Kidney Disease, Reports Iron Deficiency Anemia, Reports B12 Deficiency Anemia Past Surgical History Past Surgical History: Reports: Appendectomy, Cholecystectomy, Hysterectomy, Orthopedic Surgery - stas tkr x 2 , foot , hand, carpal tunnel surgery of the right wrist, Thyroidectomy, Tonsillectomy, Other - EGD, hemorrhoidectomy, colonoscopy, cataract extraction Social History Lives with: Spouse/Significant other Smoking Status: Former Smoker Number of Years Smokin Last Time Smoked: 1967 Frequency of Alcohol Use: None Hx Recreational Drug Use: No Drugs: None Hx Prescription Drug Abuse: No Family History Family History: Arthritis - Parents, sister and brother, Chronic Kidney Disease - Grandson previously on dialysis, DM - Moderate, Hypertension - Mother and sister, Malignancy - Pancreatic cancer in her sister and brother, breast cancer in her sister Parental Family History Reviewed: Yes Children Family History Reviewed: Yes Sibling(s) Family History Reviewed.: Yes Medication/Allergy Home Medications: Benzonatate [Tessalon Perle 100 mg Capsule] 100 mg PO QAM 10/19/16 Benzonatate [Tessalon Perle 100 mg Capsule] 200 mg PO QPM 10/19/16 Calcium Acetate [Phoslo 667 mg Capsule] 667 mg PO MEALS 10/19/16 Cyclosporine 0.05% Oph Emulsio [Restasis 0.05% Oph Emulsion Pf 0.4 ml] 1 drop OU BID 10/19/16 Fexofenadine HCl [Noemí] 180 mg PO DAILY 10/19/16 Furosemide [Lasix] 20 mg PO QAM 10/19/16 Gabapentin [Neurontin] 600 mg PO QHS 10/19/16 Levothyroxine Sodium [Synthroid] 50 mcg PO QAM 10/19/16 Loteprednol Etabonate [Lotemax 0.5% Ophth Susp] 1 drop OU QPM 10/19/16 Lubiprostone [Amitiza 8 Mcg Capsule] 8 mcg PO DAILY 10/19/16 Mirabegron [Myrbetriq] 50 mg PO DAILY 10/19/16 Pantoprazole Sodium [Protonix] 40 mg PO BID 10/19/16 Pregabalin [Lyrica 50 mg Capsule] 50 mg PO Q12 10/19/16 Sennosides [Senna] 8.6 mg PO BID 10/19/16 Temazepam [Restoril] 30 mg PO QHS 10/19/16 Tramadol HCl [Ultram] 50 mg PO Q6HP PRN 10/19/16 Valsartan [Diovan 160 mg Tablet] 160 mg PO Q12 10/19/16 Allergies/Adverse Reactions: Sulfa (Sulfonamide Antibiotics) Allergy (Intermediate, Verified 10/19/16 10:22) Generalized Itching morphine [Morphine] Adverse Reaction (Intermediate, Verified 10/19/16 10:22) Severe Nausea Review of Systems All systems: reviewed and no additional remarkable complaints except as stated Review of Systems: Constitutional: ABSENT: chills, fever(s), headache(s), weight gain, weight loss ; admits fatigue and weakness Eyes: ABSENT: visual disturbances Ears:Present: hearing changes Cardiovascular: ABSENT: chest pain, dyspnea on exertion, edema, orthropnea, palpitations Respiratory: ABSENT: dyspnea, hemoptysis; admits cough for at least 2 months Gastrointestinal: ABSENT: abdominal pain, diarrhea, hematochezia, nausea, vomiting; admits constipation, hematemesis, and chronic melena Genitourinary: ABSENT: dysuria, hematuria Musculoskeletal: ABSENT: joint swelling Integumentary: ABSENT: rash, wounds Neurological: ABSENT: abnormal gait, abnormal speech, confusion, focal weakness , numbness, syncope; admits these and is Psychiatric: ABSENT: anxiety, depression Endocrine: ABSENT: cold intolerance, heat intolerance, polydipsia, polyuria Hematologic/Lymphatic: ABSENT: easy bleeding, easy bruising, lymphadenopathy Physical Exam Vital Signs: Temp Pulse Resp BP Pulse Ox 97.5 F 101 H 18 115/92 H 100 10/20/16 11:13 10/20/16 14:00 10/20/16 11:13 10/20/16 11:13 10/20/16 11:13 Intake & Output 10/19/16 10/20/16 10/21/16 06:59 06:59 06:59 Intake Total 5 Balance 5 Weight 105 kg Exam: General appearance: no acute distress, cooperative, well-developed, well- nourished Head exam: PRESENT: atraumatic, normocephalic Eye exam: PRESENT: Conjunctiva pale, EOMI, PERRLA. ABSENT: conjunctival injection, scleral icterus Mouth exam: PRESENT: moist, neck supple, tongue midline Neck exam: PRESENT: full ROM. ABSENT: carotid bruit, JVD, lymphadenopathy, thyromegaly Respiratory exam: PRESENT: clear to auscultation bilaterally. ABSENT: rales, rhonchi, stridor, wheezes Cardiovascular exam: PRESENT: RRR, +S1, +S2. ABSENT: systolic murmur Pulses: PRESENT: normal radial pulses, normal dorsalis pedis pulses GI/Abdominal exam: PRESENT: normal bowel sounds, soft. ABSENT: guarding, mass, tenderness Rectal exam: deferred Extremities exam: PRESENT: full ROM. ABSENT: calf tenderness, pedal edema Musculoskeletal: PRESENT: full ROM. ABSENT: deformity Neurological exam: PRESENT: alert, Awake, Oriented to person, Oriented to place , Oriented to time, reflexes normal, CN II-XII grossly intact. ABSENT: motor sensory deficit Psychiatric exam: PRESENT: appropriate affect, normal mood. ABSENT: homicidal ideation, suicidal ideation Skin exam: PRESENT: intact, dry, warm. ABSENT: rash Results Laboratory Results: 10/20/16 04:25 10/20/16 04:25 10/19/16 10/19/16 10/19/16 18:25 19:03 19:03 WBC RBC Hgb Hct MCV MCH MCHC RDW Plt Count Seg Neutrophils % Lymphocytes % Monocytes % Eosinophils % Basophils % Absolute Neutrophils Absolute Lymphocytes Absolute Monocytes Absolute Eosinophils Absolute Basophils Sodium Potassium 5.3 H Chloride Carbon Dioxide Anion Gap BUN Creatinine Est GFR ( Amer) Est GFR (Non-Af Amer) Glucose Calcium Stool Occult Blood POSITIVE Stool for White Cells NO WBCs SEEN 10/20/16 10/20/16 04:25 04:25 WBC 7.0 RBC 3.07 L Hgb 8.4 L Hct 25.4 L MCV 83 MCH 27.3 MCHC 33.0 RDW 15.7 H Plt Count 139 L Seg Neutrophils % 62.3 Lymphocytes % 23.1 Monocytes % 11.6 Eosinophils % 2.2 Basophils % 0.8 Absolute Neutrophils 4.4 Absolute Lymphocytes 1.6 Absolute Monocytes 0.8 Absolute Eosinophils 0.2 Absolute Basophils 0.1 Sodium 139.6 Potassium 5.2 H Chloride 108 H Carbon Dioxide 19 L Anion Gap 13 BUN 102 H Creatinine 5.26 H Est GFR ( Amer) 9 L Est GFR (Non-Af Amer) 8 L Glucose 86 Calcium 8.8 Stool Occult Blood Stool for White Cells Impressions: Chest X-Ray 10/19/16 10:30 IMPRESSION: NO ACUTE RADIOGRAPHIC FINDING IN THE CHEST. Assessment & Plan - Diagnosis (1) Acute kidney injury superimposed on chronic kidney disease Is this a current diagnosis for this admission?: YesPlan: This could be secondary to some prerenal azotemia due to GI bleeding. Patient is nonoliguric but unable to quantify much urine output at this time. I will give the patient gentle IV fluid hydration with 0.9 normal saline 1 L. Her hemoglobin will be expected to decrease so if the hemoglobin goes down below 8, I think we need to do daily the patient blood transfusion. Monitor kidney function and urine output. Managed medically as the patient refused to do hemodialysis under any circumstances. (2) CKD (chronic kidney disease) stage 4, GFR 15-29 ml/min Is this a current diagnosis for this admission?: YesPlan: Secondary to hypertensive nephrosclerosis with known bilateral small kidneys. As mentioned above she will not do dialysis at any time. Continue medical management. (3) Hyperkalemia Is this a current diagnosis for this admission?: YesPlan: Improved. (4) Metabolic acidosis Is this a current diagnosis for this admission?: YesPlan: We'll monitor. (5) Hematemesis Is this a current diagnosis for this admission?: YesPlan: GI has been consulted and patient is scheduled for EGD. (6) Melena Is this a current diagnosis for this admission?: Yes (7) Constipation Is this a current diagnosis for this admission?: Yes (8) Anemia Qualifiers: Anemia type: iron deficiency Iron deficiency anemia type: chronic blood loss Qualified Code(s): D50.0 - Iron deficiency anemia secondary to blood loss (chronic) Is this a current diagnosis for this admission?: YesPlan: Multi-factorial due to possible blood loss, iron deficiency, and chronic kidney disease. If hemoglobin is below 8 patient likely needs to be transfused. (9) Hypertension Is this a current diagnosis for this admission?: Yes (10) Chronic cough Is this a current diagnosis for this admission?: Yes - Notes Notes: Thank you for allowing me to participate in the care of this patient. Discussed with patient. Discussed with Dr. Robert. - Time Time Spent: Greater than 70 Minutes
[2016-10-20] MEDS ORDERED: NALOXONE HCL INJ/PF 0.4 MG/1 ML SDV ONE (16:55)
[2016-10-20] MEDS ORDERED: FENTANYL CITRATE INJ/PF 100 MCG/2 ML AMPUL ONE (16:56)
[2016-10-20] MEDS ORDERED: FLUMAZENIL INJ 0.5 MG/5 ML VIAL IV ONE (16:56)
[2016-10-20] MEDS ORDERED: GLUCAGON,HUMAN RECOMB 1 MG INJ ONE (16:56)
[2016-10-20] MEDS ORDERED: EPINEPHRINE INJ 1 MG/10 ML DISP.SYRIN ONE (16:56)
[2016-10-20] MEDS ORDERED: MIDAZOLAM 2 MG/2 ML INJ ONE (16:56)
--- NOTE | 2016-10-20 17:39 | PDOC CONSULTATION ---
Consultation Consult Date: 10/19/16 History of Present Illness Admission Date/PCP: 10/19/16 14:26 TIERA LUGO MD History of Present Illness: This is an 81-year-old patient who was admitted with black stools and renal failure. Consultation was requested for GI bleed. Patient has had recurrent black stools for years and currently she has had it for about six months. She receives iron infusions but not in by mouth. Review of her blood count showed a hemoglobin of 13 in February of last year, 11.7 in June of this year, 11.6 in August and 9.4 during this admission. She has had multiple endoscopies in the past with the last EGD and colonoscopy in August of last year. 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 She also has short segment Choi's esophagus and diverticulosis. She had an EGD in June of this year that showed grade C esophagitis with a hiatal hernia. Her Protonix was increased to twice a day 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, left eye blindness Neurological Medical History: Reports: None, Other - Restless leg syndrome Denies: Seizures Endocrine Medical History: Reports: Hypothyroidism, Other - History of goiter Renal/ Medical History: Reports: End Stage Renal Disease - Stage IV Malignancy Medical History: Reports: None, Skin Cancer - Squamous cell GI Medical History: Reports: Diverticulitis, Gastroesophageal Reflux Disease - With hiatal hernia, Peptic Ulcer Disease, Other - Pancreatitis, internal hemorrhoids Musculoskeltal Medical History: Reports: Arthritis Skin Medical History: Reports: None Psychiatric Medical History: Reports: None Traumatic Medical History: Reports: None Hematology: Reports: Bleeding Tendencies, Other - Age-related macular degeneration, left eye blindness Denies: Anemia, Sickle Cell Disease Infectious Medical History: Reports: None Past Surgical History Past Surgical History: Multiple EGDs and colonoscopy, capsule endoscopy Past Surgical History: Reports: Appendectomy, Cholecystectomy, Hysterectomy, Orthopedic Surgery - stas tkr x 2 , foot , hand, carpal tunnel surgery of the right wrist, Thyroidectomy, Tonsillectomy, Other - EGD, hemorrhoidectomy, colonoscopy, cataract extraction Denies: Amputation Social History Lives with: Spouse/Significant other Smoking Status: Former Smoker Number of Years Smokin Last Time Smoked: 1968 Frequency of Alcohol Use: None Hx Recreational Drug Use: No Drugs: None Hx Prescription Drug Abuse: No - Advance Directive Resuscitation Status: Full Code Family History Family History: CAD, Hypertension Parental Family History Reviewed: No Children Family History Reviewed: NA Sibling(s) Family History Reviewed.: NA Medication/Allergy Home Medications: Benzonatate [Tessalon Perle 100 mg Capsule] 100 mg PO QAM 10/19/16 Benzonatate [Tessalon Perle 100 mg Capsule] 200 mg PO QPM 10/19/16 Calcium Acetate [Phoslo 667 mg Capsule] 667 mg PO MEALS 10/19/16 Cyclosporine 0.05% Oph Emulsio [Restasis 0.05% Oph Emulsion Pf 0.4 ml] 1 drop OU BID 10/19/16 Fexofenadine HCl [Noemí] 180 mg PO DAILY 10/19/16 Furosemide [Lasix] 20 mg PO QAM 10/19/16 Gabapentin [Neurontin] 600 mg PO QHS 10/19/16 Levothyroxine Sodium [Synthroid] 50 mcg PO QAM 10/19/16 Loteprednol Etabonate [Lotemax 0.5% Ophth Susp] 1 drop OU QPM 10/19/16 Lubiprostone [Amitiza 8 Mcg Capsule] 8 mcg PO DAILY 10/19/16 Mirabegron [Myrbetriq] 50 mg PO DAILY 10/19/16 Pantoprazole Sodium [Protonix] 40 mg PO BID 10/19/16 Pregabalin [Lyrica 50 mg Capsule] 50 mg PO Q12 10/19/16 Sennosides [Senna] 8.6 mg PO BID 10/19/16 Temazepam [Restoril] 30 mg PO QHS 10/19/16 Tramadol HCl [Ultram] 50 mg PO Q6HP PRN 10/19/16 Valsartan [Diovan 160 mg Tablet] 160 mg PO Q12 10/19/16 Allergies/Adverse Reactions: Sulfa (Sulfonamide Antibiotics) Allergy (Intermediate, Verified 10/19/16 10:22) Generalized Itching morphine [Morphine] Adverse Reaction (Intermediate, Verified 10/19/16 10:22) Severe Nausea Review of Systems All systems: reviewed and no additional remarkable complaints except as stated Physical Exam Vital Signs: Temp Pulse Resp BP Pulse Ox 97.5 F 72 11 L 135/67 H 97 10/20/16 11:13 10/20/16 17:25 10/20/16 17:25 10/20/16 17:25 10/20/16 17:25 Intake & Output 10/19/16 10/20/16 10/21/16 06:59 06:59 06:59 Intake Total 5 0 Balance 5 0 Weight 105 kg Exam: General: Patient is alert and looks well. She is obese HEENT: There is some palor. PERRLA. Oropharynx normal Respiratory: No chest deformity. No respiratory distress. Chest wall palpitation was unremarkable. Breath sounds were normal Cardiovascular: Heart sounds 1 and 2 normal with no murmurs. Abdominal: Not distended. Soft and nontender. Liver and spleen not palpable. No ascites demonstrated. Bowel sounds active. Rectal examination showed brown stools Extremities: No edema Neurological: Alert and oriented x4. Grossly nonfocal. Normal speech Skin: No significant rash Psychological: Normal affect Results Laboratory Results: 10/20/16 04:25 10/20/16 04:25 10/19/16 10/19/16 10/19/16 18:25 19:03 19:03 WBC RBC Hgb Hct MCV MCH MCHC RDW Plt Count Seg Neutrophils % Lymphocytes % Monocytes % Eosinophils % Basophils % Absolute Neutrophils Absolute Lymphocytes Absolute Monocytes Absolute Eosinophils Absolute Basophils Sodium Potassium 5.3 H Chloride Carbon Dioxide Anion Gap BUN Creatinine Est GFR ( Amer) Est GFR (Non-Af Amer) Glucose Calcium Stool Occult Blood POSITIVE Stool for White Cells NO WBCs SEEN 10/20/16 10/20/16 04:25 04:25 WBC 7.0 RBC 3.07 L Hgb 8.4 L Hct 25.4 L MCV 83 MCH 27.3 MCHC 33.0 RDW 15.7 H Plt Count 139 L Seg Neutrophils % 62.3 Lymphocytes % 23.1 Monocytes % 11.6 Eosinophils % 2.2 Basophils % 0.8 Absolute Neutrophils 4.4 Absolute Lymphocytes 1.6 Absolute Monocytes 0.8 Absolute Eosinophils 0.2 Absolute Basophils 0.1 Sodium 139.6 Potassium 5.2 H Chloride 108 H Carbon Dioxide 19 L Anion Gap 13 BUN 102 H Creatinine 5.26 H Est GFR ( Amer) 9 L Est GFR (Non-Af Amer) 8 L Glucose 86 Calcium 8.8 Stool Occult Blood Stool for White Cells Impressions: Chest X-Ray 10/19/16 10:30 IMPRESSION: NO ACUTE RADIOGRAPHIC FINDING IN THE CHEST. Assessment & Plan - Diagnosis (1) Melena Is this a current diagnosis for this admission?: YesPlan: She actually has brown stools in her rectum and I doubt she has had melena for six months. She will undergo an EGD for further evaluation. (2) Acute kidney injury superimposed on chronic kidney disease Is this a current diagnosis for this admission?: Yes (3) GERD (gastroesophageal reflux disease) Qualifiers: Esophagitis presence: esophagitis presence not specified Qualified Code(s): K21.9 - Gastro-esophageal reflux disease without esophagitis Is this a current diagnosis for this admission?: YesPlan: She did have grade C esophagitis in June and this will be further evaluated by EGD. She should be on a PPI twice a day. She has a large hiatal hernia (4) Anemia Qualifiers: Anemia type: iron deficiency Iron deficiency anemia type: chronic blood loss Qualified Code(s): D50.0 - Iron deficiency anemia secondary to blood loss (chronic) Is this a current diagnosis for this admission?: YesPlan: Her current anemia is probably multifactorial. Her renal failure is likely contributing to this also
--- NOTE | 2016-10-20 17:42 | Operative Report ---
Operative Report DATE OF SURGERY: 10/20/16 Operative Report: Pre-op diagnosis: Anemia Post-op diagnosis: 1. Mild antral gastritis with scarring 2. Short segment Choi's esophagus 3. Grade A esophagitis Surgery: Esophagogastroduodenoscopy with biopsy Medications: Versed 2mg Fentanyl 50mcg IV push Tissue removed: Antral biopsy and esophageal for pathology Procedure: After informed consent obtained from patient, the throat was sprayed with Hurricane and conscious sedation was achieved. The upper endoscope was inserted into the esophagus under direct vision and advanced into the stomach. The duodenum was entered and examined to the second part. Endoscope was then slowly pulled out of the patient as the mucosa was examined into details. Patient tolerated procedure well. Findings Esophagus: She has a 4-5 cm hiatal hernia with the top of the gastric mucosa at 38 cm. The top of the Z line was at 34 cm. There was a 1-2 cm tongue of columnar epithelium. A small erosion was noted at a different part of the Z line. Biopsy was taken from the area of columnar epithelium. Antrum: There was mild erythema along the lesser curvature with some thickening and scarring. Biopsy was taken Body: Normal Fundus: Normal Duodenum first part: Normal Duodenum second part: Normal Plan: Await pathology. Continue PPI twice a day OPERATION: .
[2016-10-20] MEDS ORDERED: LANSOPRAZOLE 30 MG TAB.RAP.DR PO ONE (18:30)
[2016-10-20] MEDS: BENZONATATE 100 MG CAPSULE PO SCH (21:37)
[2016-10-21] MEDS: ACETAMINOPHEN 325 MG TABLET PO PRN ×3 (01:52→18:53)
[2016-10-21] MEDS ORDERED: FERUMOXYTOL (NON-ESRD) 510 MG/NS 100 ML IV PRN ×2 (05:00)
[2016-10-21] MEDS ORDERED: ACETAMINOPHEN 325 MG TABLET PO PRN (05:00)
[2016-10-21] MEDS: BENZONATATE 100 MG CAPSULE PO SCH ×2 (05:15→22:01)
[2016-10-21 05:35] LABS: HEMATOCRIT 25.3 % (36.0-47.0); HEMOGLOBIN 8.3 g/dL (12.0-15.5); HGB HCT DIFFERENCE -0.4; MEAN CORPUSCULAR HEMOGLOBIN 27.3 pg (27.0-33.4); MEAN CORPUSCULAR VOLUME 83 fl (80-97); RED BLOOD COUNT 3.06 10^6/uL (3.72-5.28); RED CELL DISTRIBUTION WIDTH 15.8 % (11.5-14.0)
[2016-10-21] MEDS: HEPARIN SOD (PORCINE) 5,000 UNIT/ML 1 ML SYRINGE SUBCUT SCH ×3 (05:37→22:01)
[2016-10-21 05:50] LABS: ANION GAP 12 (5-19); BLOOD UREA NITROGEN 85 mg/dL (7-20); CALCIUM 8.6 mg/dL (8.4-10.2); CARBON DIOXIDE 22 mmol/L (22-30); CHLORIDE 108 mmol/L (98-107); CREATININE RESULT 4.33 mg/dL (0.52-1.25); GLUCOSE 95 mg/dL (75-110); POTASSIUM 4.4 mmol/L (3.6-5.0); SODIUM 142.3 mmol/L (137-145)
[2016-10-21 06:57] LABS: FOLATE 8.03 ng/mL (>2.76)
[2016-10-21] MEDS: DOCUSATE SODIUM 100 MG CAPSULE PO SCH ×2 (09:55→17:36)
[2016-10-21] MEDS: LANSOPRAZOLE 30 MG TAB.RAP.DR PO SCH ×2 (09:56→17:36)
--- NOTE | 2016-10-21 14:45 | Physician Advisory Note ---
Physician Advisor ProgressNote .: Pursuant to the plan for [facility], I have reviewed the medical record for this patient. Physician Advisor Statement: Please consider documentin. "Acute GI BLeed due to " 2. "Anemia of acute blood loss due to above" [Hgb 11.6 on 09/08/16, 9.4 on arrival, now 8.3. 3. "Chronic anemia of both CKD & of Fe defic from chronic blood loss" 4. "chronic diastolic CHF" - vs "Acute on Chronic diastolic CHF" 5. "Acute kidney injury with acute metabolic acidosis" [nephrol note has already documented details] Thanks! CK
--- NOTE | 2016-10-21 16:28 | PDOC PROGRESS REPORT ---
Subjective Progress Note for:: 10/21/16 Subjective:: Hemoglobin and hematocrit slowly was trending down but seems to be stabilizing now. No reported active bleeding on endoscopy. Still the patient having significant coughing, chronic shortness of breath however. Denies any wheezing at this time. No chills or fever. No chest pain. Physical Exam Vital Signs: Temp Pulse Resp BP Pulse Ox 98.5 F 72 19 150/58 H 100 10/21/16 11:42 10/21/16 14:00 10/21/16 11:42 10/21/16 11:42 10/21/16 11:42 Intake & Output 10/20/16 10/21/16 10/22/16 06:59 06:59 06:59 Intake Total 5 1615 437 Output Total 100 Balance 5 1515 437 Weight 105 kg General appearance: PRESENT: no acute distress, cooperative, obese Head exam: PRESENT: normocephalic Eye exam: PRESENT: conjunctiva pale, EOMI Mouth exam: PRESENT: moist, neck supple Neck exam: ABSENT: JVD Respiratory exam: PRESENT: clear to auscultation stas - Anteriorly. ABSENT: rhonchi, wheezes Cardiovascular exam: PRESENT: RRR. ABSENT: gallop GI/Abdominal exam: PRESENT: soft. ABSENT: distended - Obese, tenderness Gentrourinary exam: PRESENT: other - Trace edema Neurological exam: PRESENT: alert, awake, oriented to situation Skin exam: PRESENT: dry, warm. ABSENT: cyanosis Results Laboratory Results: 10/21/16 04:51 10/21/16 04:51 10/21/16 10/21/16 04:51 04:51 WBC 7.0 RBC 3.06 L Hgb 8.3 L Hct 25.3 L MCV 83 MCH 27.3 MCHC 33.0 RDW 15.8 H Plt Count 133 L Retic Count (auto) 1.58 Absolute Retic 0.048 Sodium 142.3 Potassium 4.4 Chloride 108 H Carbon Dioxide 22 Anion Gap 12 BUN 85 H Creatinine 4.33 H Est GFR ( Amer) 12 L Est GFR (Non-Af Amer) 10 L Glucose 95 Calcium 8.6 Iron 109.7 TIBC 270 % Saturation 41 Ferritin 427.00 H Vitamin B12 364.0 Folate 8.03 10/19/16 19:03 Stool - Stool - Final Impressions: Chest X-Ray 10/19/16 10:30 IMPRESSION: NO ACUTE RADIOGRAPHIC FINDING IN THE CHEST. Assessment & Plan - Diagnosis (1) Black tarry stools Is this a current diagnosis for this admission?: Yes (2) Hyperkalemia Is this a current diagnosis for this admission?: Yes (3) Anemia Qualifiers: Anemia type: iron deficiency Iron deficiency anemia type: chronic blood loss Qualified Code(s): D50.0 - Iron deficiency anemia secondary to blood loss (chronic) Is this a current diagnosis for this admission?: Yes (4) CKD (chronic kidney disease) stage 4, GFR 15-29 ml/min Is this a current diagnosis for this admission?: Yes (5) Congestive heart failure (CHF) Qualifiers: Congestive heart failure type: diastolic Congestive heart failure chronicity: unspecified congestive heart failure chronicity Qualified Code(s): I50.30 - Unspecified diastolic (congestive) heart failure Is this a current diagnosis for this admission?: Yes (6) Hypertension Is this a current diagnosis for this admission?: Yes (8) Obstructive sleep apnea Is this a current diagnosis for this admission?: Yes (9) GERD (gastroesophageal reflux disease) Qualifiers: Esophagitis presence: esophagitis presence not specified Qualified Code(s): K21.9 - Gastro-esophageal reflux disease without esophagitis Is this a current diagnosis for this admission?: Yes (10) Seasonal allergies Qualifiers: Allergic rhinitis trigger: unspecified Qualified Code(s): J30.2 - Other seasonal allergic rhinitis Is this a current diagnosis for this admission?: Yes - Time Time Spent with patient: 25-34 minutes - Plan Summary Plan Summary: Try twice a day proton pump inhibitor, cough may be related to reflux. We will increase Tessalon Perles and make it scheduled see if it will help the coughing We will obtain CT scan of the chest as it has been persistent for months. Recheck hemoglobin and hematocrit and if stable possibly discharge in a.m. Dr. Choi evaluated the patient, and we will infuse iron. Dr. Chand gave IV fluid 1 L and creatinine improved. Fluids however may have caused her hematocrit to drop.
[2016-10-21] MEDS: CALCIUM ACETATE 667 MG CAPSULE PO SCH (17:36)
[2016-10-21] MEDS: CYCLOSPORINE 0.05% OPH EMULSIO 0.4 ML DROPERETTE OU SCH (17:37)
[2016-10-21] MEDS ORDERED: GABAPENTIN 300 MG CAPSULE PO SCH (22:00)
--- NOTE | 2016-10-22 01:25 | PDOC CONSULTATION ---
History of Present Illness Admission Date/PCP: 10/19/16 14:26 TIERA LUGO MD History of Present Illness: This is an 81-year-old patient who was admitted with black stools and renal failure. Consultation was requested for GI bleed. Patient has had recurrent black stools for years and currently she has had it for about six months. She receives iron infusions but not in by mouth. Review of her blood count showed a hemoglobin of 13 in February of last year, 11.7 in June of this year, 11.6 in August and 9.4 during this admission. She has had multiple endoscopies in the past with the last EGD and colonoscopy in August of last year. 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 She also has short segment Choi's esophagus and diverticulosis. She had an EGD in June of this year that showed a h/h and recevled IV iron and is due again. 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, left eye blindness Neurological Medical History: Reports: None, Other - Restless leg syndrome Denies: Seizures Endocrine Medical History: Reports: Hypothyroidism, Other - History of goiter Renal/ Medical History: Reports: End Stage Renal Disease - Stage IV Malignancy Medical History: Reports: None, Skin Cancer - Squamous cell GI Medical History: Reports: Diverticulitis, Gastroesophageal Reflux Disease - With hiatal hernia, Peptic Ulcer Disease, Other - Pancreatitis, internal hemorrhoids Musculoskeltal Medical History: Reports: Arthritis Skin Medical History: Reports: None Psychiatric Medical History: Reports: None Traumatic Medical History: Reports: None Hematology: Reports: Bleeding Tendencies, Other - Age-related macular degeneration, left eye blindness Denies: Anemia, Sickle Cell Disease Infectious Medical History: Reports: None Past Surgical History Past Surgical History: Reports: Appendectomy, Cholecystectomy, Hysterectomy, Orthopedic Surgery - stas tkr x 2 , foot , hand, carpal tunnel surgery of the right wrist, Thyroidectomy, Tonsillectomy, Other - EGD, hemorrhoidectomy, colonoscopy, cataract extraction Denies: Amputation Social History Lives with: Spouse/Significant other Smoking Status: Former Smoker Number of Years Smokin Last Time Smoked: 1967 Frequency of Alcohol Use: None Hx Recreational Drug Use: No Drugs: None Hx Prescription Drug Abuse: No - Advance Directive Resuscitation Status: Full Code Family History Family History: CAD, Hypertension Parental Family History Reviewed: Yes Children Family History Reviewed: Yes Sibling(s) Family History Reviewed.: Yes Medication/Allergy Home Medications: Benzonatate [Tessalon Perle 100 mg Capsule] 100 mg PO QAM 10/19/16 Benzonatate [Tessalon Perle 100 mg Capsule] 200 mg PO QPM 10/19/16 Calcium Acetate [Phoslo 667 mg Capsule] 667 mg PO MEALS 10/19/16 Cyclosporine 0.05% Oph Emulsio [Restasis 0.05% Oph Emulsion Pf 0.4 ml] 1 drop OU BID 10/19/16 Fexofenadine HCl [Noemí] 180 mg PO DAILY 10/19/16 Furosemide [Lasix] 20 mg PO QAM 10/19/16 Gabapentin [Neurontin] 600 mg PO QHS 10/19/16 Levothyroxine Sodium [Synthroid] 50 mcg PO QAM 10/19/16 Loteprednol Etabonate [Lotemax 0.5% Ophth Susp] 1 drop OU QPM 10/19/16 Lubiprostone [Amitiza 8 Mcg Capsule] 8 mcg PO DAILY 10/19/16 Mirabegron [Myrbetriq] 50 mg PO DAILY 10/19/16 Pantoprazole Sodium [Protonix] 40 mg PO BID 10/19/16 Pregabalin [Lyrica 50 mg Capsule] 50 mg PO Q12 10/19/16 Sennosides [Senna] 8.6 mg PO BID 10/19/16 Temazepam [Restoril] 30 mg PO QHS 10/19/16 Tramadol HCl [Ultram] 50 mg PO Q6HP PRN 10/19/16 Valsartan [Diovan 160 mg Tablet] 160 mg PO Q12 10/19/16 Allergies/Adverse Reactions: Sulfa (Sulfonamide Antibiotics) Allergy (Intermediate, Verified 10/19/16 10:22) Generalized Itching morphine [Morphine] Adverse Reaction (Intermediate, Verified 10/19/16 10:22) Severe Nausea Review of Systems Constitutional: PRESENT: as per HPI, weakness Cardiovascular: PRESENT: as per HPI Respiratory: PRESENT: as per HPI Physical Exam Vital Signs: Temp Pulse Resp BP Pulse Ox 97.7 F 74 16 137/70 H 96 10/21/16 23:34 10/21/16 23:34 10/21/16 23:34 10/21/16 23:34 10/21/16 23:34 Intake & Output 10/20/16 10/21/16 10/22/16 06:59 06:59 06:59 Intake Total 5 1615 677 Output Total 100 Balance 5 1515 677 Weight 105 kg General appearance: PRESENT: no acute distress Head exam: PRESENT: atraumatic, normocephalic Eye exam: PRESENT: conjunctiva pale Ear exam: PRESENT: normal external ear exam Cardiovascular exam: PRESENT: RRR Rectal exam: PRESENT: deferred Neurological exam: PRESENT: alert, oriented to time, CN II-XII grossly intact Results Laboratory Results: 10/21/16 04:51 10/21/16 04:51 10/21/16 10/21/16 04:51 04:51 WBC 7.0 RBC 3.06 L Hgb 8.3 L Hct 25.3 L MCV 83 MCH 27.3 MCHC 33.0 RDW 15.8 H Plt Count 133 L Retic Count (auto) 1.58 Absolute Retic 0.048 Sodium 142.3 Potassium 4.4 Chloride 108 H Carbon Dioxide 22 Anion Gap 12 BUN 85 H Creatinine 4.33 H Est GFR ( Amer) 12 L Est GFR (Non-Af Amer) 10 L Glucose 95 Calcium 8.6 Iron 109.7 TIBC 270 % Saturation 41 Ferritin 427.00 H Vitamin B12 364.0 Folate 8.03 10/19/16 19:03 Stool - Stool - Final Impressions: Chest X-Ray 10/19/16 10:30 IMPRESSION: NO ACUTE RADIOGRAPHIC FINDING IN THE CHEST. Chest CT 10/21/16 00:00 IMPRESSION: NO SIGNIFICANT FINDING ON NON-CONTRASTED CHEST CT. Assessment & Plan - Diagnosis (1) Obstructive sleep apnea Is this a current diagnosis for this admission?: YesPlan: Oxygen as needed (2) anemia Plan: Treat with IV iron - Time Time Spent: 50 to 70 Minutes Critical Time spent with patient: 25-34 minutes Medications reviewed and adjusted accordingly: Yes
[2016-10-22] MEDS: HEPARIN SOD (PORCINE) 5,000 UNIT/ML 1 ML SYRINGE SUBCUT SCH ×2 (05:57→13:41)
[2016-10-22] MEDS: BENZONATATE 100 MG CAPSULE PO SCH ×2 (05:57→13:40)
[2016-10-22 06:36] LABS: HEMATOCRIT 29.2 % (36.0-47.0); HEMOGLOBIN 9.2 g/dL (12.0-15.5); HGB HCT DIFFERENCE -1.6; MEAN CORPUSCULAR HEMOGLOBIN 26.4 pg (27.0-33.4); MEAN CORPUSCULAR HGB CONC 31.5 g/dL (32.0-36.0); MEAN CORPUSCULAR VOLUME 84 fl (80-97); RED BLOOD COUNT 3.48 10^6/uL (3.72-5.28); RED CELL DISTRIBUTION WIDTH 16.2 % (11.5-14.0); WHITE BLOOD COUNT 6.7 10^3/uL (4.0-10.5)
[2016-10-22] MEDS ORDERED: LEVOTHYROXINE SODIUM 0.05 MG TABLET PO SCH (08:00)
[2016-10-22] MEDS: LANSOPRAZOLE 30 MG TAB.RAP.DR PO SCH ×2 (09:51→17:58)
[2016-10-22] MEDS: CYCLOSPORINE 0.05% OPH EMULSIO 0.4 ML DROPERETTE OU SCH ×2 (09:52→18:35)
[2016-10-22] MEDS: CALCIUM ACETATE 667 MG CAPSULE PO SCH ×3 (09:52→17:58)
[2016-10-22] MEDS: DOCUSATE SODIUM 100 MG CAPSULE PO SCH ×2 (09:52→17:57)
[2016-10-22] MEDS: METOCLOPRAMIDE HCL 10 MG TABLET PO SCH ×2 (12:30→17:58)
[2016-10-22] MEDS ORDERED: FUROSEMIDE 20 MG TABLET PO ONE (13:00)
--- NOTE | 2016-10-22 13:38 | PDOC PROGRESS REPORT ---
Subjective Progress Note for:: 10/22/16 Subjective:: Patient complains of some epigastric pain. Physical Exam Vital Signs: Temp Pulse Resp BP Pulse Ox 98.4 F 75 20 130/60 H 100 10/22/16 12:30 10/22/16 12:30 10/22/16 12:30 10/22/16 12:30 10/22/16 12:30 Intake & Output 10/21/16 10/22/16 10/23/16 06:59 06:59 06:59 Intake Total 1615 899 355 Output Total 100 1 Balance 1515 898 355 Weight 104.9 kg General appearance: PRESENT: no acute distress Eye exam: PRESENT: conjunctiva pink. ABSENT: scleral icterus Mouth exam: PRESENT: moist, tongue midline Neck exam: ABSENT: JVD Respiratory exam: PRESENT: clear to auscultation stas. ABSENT: rales, rhonchi, wheezes Cardiovascular exam: PRESENT: RRR. ABSENT: diastolic murmur, rubs, systolic murmur GI/Abdominal exam: PRESENT: normal bowel sounds, soft. ABSENT: distended, guarding, mass, organolmegaly, rebound, tenderness Extremities exam: ABSENT: calf tenderness, clubbing, pedal edema Neurological exam: PRESENT: alert, awake, oriented to person, oriented to place , oriented to time, oriented to situation, CN II-XII grossly intact. ABSENT: motor sensory deficit Psychiatric exam: PRESENT: appropriate affect Skin exam: PRESENT: dry, intact, warm. ABSENT: cyanosis, rash Results Laboratory Results: 10/22/16 05:55 10/21/16 04:51 10/21/16 10/22/16 04:51 05:55 WBC 6.7 RBC 3.48 L Hgb 9.2 L Hct 29.2 L MCV 84 MCH 26.4 L MCHC 31.5 L RDW 16.2 H Plt Count 142 L Transferrin 204 10/19/16 19:03 Stool - Stool - Final Impressions: Chest X-Ray 10/19/16 10:30 IMPRESSION: NO ACUTE RADIOGRAPHIC FINDING IN THE CHEST. Chest CT 10/21/16 00:00 IMPRESSION: NO SIGNIFICANT FINDING ON NON-CONTRASTED CHEST CT. Assessment & Plan - Diagnosis (1) Melena Is this a current diagnosis for this admission?: YesPlan: Patient has had an EGD that did show some gastritis. The patient's hemoglobin has remained stable. (2) GERD (gastroesophageal reflux disease) Qualifiers: Esophagitis presence: esophagitis presence not specified Qualified Code(s): K21.9 - Gastro-esophageal reflux disease without esophagitis Is this a current diagnosis for this admission?: YesPlan: Patient complains of some acid reflux symptoms. We'll start on Reglan. (3) Hyperkalemia Is this a current diagnosis for this admission?: YesPlan: Resolved. (4) Obstructive sleep apnea Is this a current diagnosis for this admission?: Yes (5) CKD (chronic kidney disease) stage 4, GFR 15-29 ml/min Is this a current diagnosis for this admission?: Yes (6) Congestive heart failure (CHF) Qualifiers: Congestive heart failure type: diastolic Congestive heart failure chronicity: unspecified congestive heart failure chronicity Qualified Code(s): I50.30 - Unspecified diastolic (congestive) heart failure Is this a current diagnosis for this admission?: YesPlan: Patient is euvolemic. (7) Hypertension Is this a current diagnosis for this admission?: YesPlan: Blood pressure is under good control. (8) Hypothyroid Is this a current diagnosis for this admission?: YesPlan: Continue with Synthroid. (10) anemia Is this a current diagnosis for this admission?: YesPlan: Hemoglobin has remained stable. She received IV iron yesterday. - Time Time Spent with patient: 25-34 minutes - Inpatient Certification Medical Necessity: Need Close Monitoring Due to Risk of Patient Decompensation
--- NOTE | 2016-10-22 16:50 | PDOC DISCHARGE SUMMARY ---
General - Admit/Disc Date/PCP Admission Date/Primary Care Provider: 10/19/16 14:26 TIERA LUGO MD Discharge Date: 10/22/16 - Discharge Diagnosis (1) Melena Is this a current diagnosis for this admission?: YesSummary: egd showed gastritis and esophagitis (2) GERD (gastroesophageal reflux disease) Is this a current diagnosis for this admission?: Yes (3) Hyperkalemia Is this a current diagnosis for this admission?: YesSummary: resolved (4) Obstructive sleep apnea Is this a current diagnosis for this admission?: Yes (5) CKD (chronic kidney disease) stage 4, GFR 15-29 ml/min Is this a current diagnosis for this admission?: Yes (6) Congestive heart failure (CHF) Is this a current diagnosis for this admission?: Yes (7) Hypertension Is this a current diagnosis for this admission?: Yes (8) Hypothyroid Is this a current diagnosis for this admission?: Yes (9) Obesity (BMI 30.0-34.9) Is this a current diagnosis for this admission?: Yes (10) anemia Is this a current diagnosis for this admission?: Yes - Additional Information Resuscitation Status: Full Code Discharge Diet: Cardiac Discharge Activity: Activity As Tolerated Home Medications: Benzonatate [Tessalon Perle 100 mg Capsule] 100 mg PO QAM 10/19/16 Benzonatate [Tessalon Perle 100 mg Capsule] 200 mg PO QPM 10/19/16 Calcium Acetate [Phoslo 667 mg Capsule] 667 mg PO MEALS 10/19/16 Cyclosporine 0.05% Oph Emulsio [Restasis 0.05% Oph Emulsion Pf 0.4 ml] 1 drop OU BID 10/19/16 Fexofenadine HCl [Noemí] 180 mg PO DAILY 10/19/16 Furosemide [Lasix] 20 mg PO QAM 10/19/16 Gabapentin [Neurontin] 600 mg PO QHS 10/19/16 Levothyroxine Sodium [Synthroid] 50 mcg PO QAM 10/19/16 Loteprednol Etabonate [Lotemax 0.5% Ophth Susp] 1 drop OU QPM 10/19/16 Lubiprostone [Amitiza 8 Mcg Capsule] 8 mcg PO DAILY 10/19/16 Mirabegron [Myrbetriq] 50 mg PO DAILY 10/19/16 Pantoprazole Sodium [Protonix] 40 mg PO BID 10/19/16 Pregabalin [Lyrica 50 mg Capsule] 50 mg PO Q12 10/19/16 Sennosides [Senna] 8.6 mg PO BID 10/19/16 Temazepam [Restoril] 30 mg PO QHS 10/19/16 Tramadol HCl [Ultram] 50 mg PO Q6HP PRN 10/19/16 Valsartan [Diovan 160 mg Tablet] 160 mg PO Q12 10/19/16 History of Present Illness History of Present Illness: TARAN MANZANARES is a 81 year old female who presented with melena. She denied and NSAID use. Admitted for evaluation of upper gi bleed. She has a history of a Deuilfoy lesion. Hospital Course Hospital Course: Addmitted with upper gi bleed with melanotic stool. She has a history of a Duelifoy lesion. She did not require transfusion. She was seen by GI who did an EGD that showed gastritis and esophagitis. She also was seen by dr Choi who gave IV iron. The patient's hemaglobin remained stable. She also had hyperkalemia that was treated with kayexalate. She has CRF stage 4. She is discharged home and will follow up with primary care in 2 weeks. Physical Exam Vital Signs: Temp Pulse Resp BP Pulse Ox 98.4 F 75 20 130/60 H 100 10/22/16 12:30 10/22/16 12:30 10/22/16 12:30 10/22/16 12:30 10/22/16 12:30 Intake & Output 10/21/16 10/22/16 10/23/16 06:59 06:59 06:59 Intake Total 1615 899 355 Output Total 100 1 Balance 1515 898 355 Weight 104.9 kg General appearance: PRESENT: no acute distress Eye exam: PRESENT: conjunctiva pink. ABSENT: scleral icterus Ear exam: PRESENT: normal external ear exam Mouth exam: PRESENT: moist, tongue midline Neck exam: ABSENT: carotid bruit, JVD, lymphadenopathy, thyromegaly Respiratory exam: PRESENT: clear to auscultation stas. ABSENT: rales, rhonchi, wheezes Cardiovascular exam: PRESENT: RRR. ABSENT: diastolic murmur, rubs, systolic murmur Pulses: PRESENT: normal dorsalis pedis pul Vascular exam: PRESENT: normal capillary refill GI/Abdominal exam: PRESENT: normal bowel sounds, soft. ABSENT: distended, guarding, mass, organolmegaly, rebound, tenderness Extremities exam: ABSENT: calf tenderness, clubbing, pedal edema Neurological exam: PRESENT: alert, awake, oriented to person, oriented to place , oriented to time, oriented to situation, CN II-XII grossly intact. ABSENT: motor sensory deficit Psychiatric exam: PRESENT: appropriate affect Results Laboratory Results: 10/22/16 05:55 10/21/16 04:51 10/21/16 10/22/16 04:51 05:55 WBC 6.7 RBC 3.48 L Hgb 9.2 L Hct 29.2 L MCV 84 MCH 26.4 L MCHC 31.5 L RDW 16.2 H Plt Count 142 L Transferrin 204 10/19/16 19:03 Stool - Stool - Final Impressions: Chest X-Ray 10/19/16 10:30 IMPRESSION: NO ACUTE RADIOGRAPHIC FINDING IN THE CHEST. Chest CT 10/21/16 00:00 IMPRESSION: NO SIGNIFICANT FINDING ON NON-CONTRASTED CHEST CT. Qualifiers PATEINT BEING DISCHARGED WITH ANY OF THE FOLLOWING DIAGNOSIS?: No Plan Discharge Plan: discharged home in stable condition Time Spent: Greater than 30 Minutes
[2016-10-22 17:50] VITALS: BP 120/61
[2016-10-23] MEDS ORDERED: FUROSEMIDE 20 MG TABLET PO SCH (10:00)
== END 2016-10-22 18:10 | disposition home or self-care (01) | DRG 378 ==
LOC: ER 10:05 → EH 12:52 → UNDOADMIN 12:52 → EH 14:26 → 3N 23:19
PROC: 0DB38ZX Excision of Lower Esophagus, Via Natural or Artificial Opening Endoscopic, Diagnostic (ICD-10-PCS; 2016-10-20)
PROC: 0DB68ZX Excision of Stomach, Via Natural or Artificial Opening Endoscopic, Diagnostic (ICD-10-PCS; principal; 2016-10-20 18:30)
DX: K92.1 Melena (principal); I13.0 Hypertensive heart and chronic kidney disease with heart failure and stage 1 through stage 4 chronic kidney disease, or unspecified chronic kidney disease; I50.32 Chronic diastolic (congestive) heart failure; N18.4 Chronic kidney disease, stage 4 (severe); N17.9 Acute kidney failure, unspecified; E87.2 Acidosis; K29.70 Gastritis, unspecified, without bleeding; E87.5 Hyperkalemia; G47.33 Obstructive sleep apnea (adult) (pediatric); D63.1 Anemia in chronic kidney disease; E66.9 Obesity, unspecified; Z68.33 Body mass index [BMI] 33.0-33.9, adult; I25.10 Atherosclerotic heart disease of native coronary artery without angina pectoris; H54.42 Blindness, left eye, normal vision right eye; G25.81 Restless legs syndrome; K44.9 Diaphragmatic hernia without obstruction or gangrene; M19.90 Unspecified osteoarthritis, unspecified site; H35.30 Unspecified macular degeneration; K64.8 Other hemorrhoids; E89.0 Postprocedural hypothyroidism; K21.0 Gastro-esophageal reflux disease with esophagitis; D50.0 Iron deficiency anemia secondary to blood loss (chronic); G90.9 Disorder of the autonomic nervous system, unspecified; E83.39 Other disorders of phosphorus metabolism; J30.2 Other seasonal allergic rhinitis; K22.70 Barrett's esophagus without dysplasia; K92.0 Hematemesis; K59.00 Constipation, unspecified; Z87.891 Personal history of nicotine dependence; Z98.49 Cataract extraction status, unspecified eye; Z85.828 Personal history of other malignant neoplasm of skin; Z87.11 Personal history of peptic ulcer disease; Z79.899 Other long term (current) drug therapy; Z90.49 Acquired absence of other specified parts of digestive tract; Z90.710 Acquired absence of both cervix and uterus; Z88.2 Allergy status to sulfonamides; Z88.6 Allergy status to analgesic agent; Z82.49 Family history of ischemic heart disease and other diseases of the circulatory system; Z82.61 Family history of arthritis; Z84.1 Family history of disorders of kidney and ureter; Z83.3 Family history of diabetes mellitus; Z80.0 Family history of malignant neoplasm of digestive organs; Z80.3 Family history of malignant neoplasm of breast
CPT/HCPCS: 36415; 43239; 71010; 71250; 80048; 80053; 81001; 82272; 82607; 82728; 82746; 83540; 83550; 84132; 84439; 84443; 84466; 85025; 85027; 85045; 85610; 87040; 87045; 87205; 88305; 88342; 89055; 93005; 93010; 96361; 96365; 96375; 99285; J0171; J0610; J1610; J1644; J1815; J2250; J2310; J2405; J3010; J3490; J7030; J7040; Q0138; S0164

== ENCOUNTER 2016-10-28 17:27 | Inpatient (IN) | payer MEDICARE, OTHER ==
--- NOTE | 2016-10-28 18:54 | ER Document Report ---
ED GI/ <WILLYVIRIDIANA - Last Filed: 10/28/16 20:23> - General Mode of Arrival: Ambulatory Information source: Patient TRAVEL OUTSIDE OF THE [place] IN LAST 30 DAYS: No - HPI Patient complains to provider of: Abdominal pain, Diarrhea, Vomiting Onset: Other - 4-5 days ago Location: Other - umbilical tenderness Associated symptoms: Other - see notes above <LESLY NORTON - Last Filed: 10/28/16 20:26> - General Chief Complaint: Nausea Stated Complaint: NAUSEA Time Seen by Provider: 10/28/16 18:39 Notes: 81 year old female with history of stage 4 ESRD (with no fluid restrictions), hypertension, CHF, and CAD presents to the ED complaining of nausea, vomiting, and abdominal pain that started 4-5 days ago. Patient reports that she was dry heaving all day 5 days ago which progressed to vomiting 4 days ago. Patient states that she has had a loss of appetite and has only had 2 egg yolk with toast yesterday and 3 egg yolk with toast today. Patient developed profuse diarrhea today and took Pepto Bismol after her 7th bowel movement at approximately 1230. Patient states that the diarrhea stopped, but reports that she feels like it is returning. Patient states that she last vomited yesterday. Patient is also complaining of a 'loud' beating heart that she feels in her umbilical hernia. Patient was recently discharged from the hospital after a 4 day hospitalization secondary to hyperkalemia and a GI bleed. (LESLY NORTON) - Related Data Allergies/Adverse Reactions: Sulfa (Sulfonamide Antibiotics) Allergy (Intermediate, Verified 10/28/16 17:35) Generalized Itching morphine [Morphine] Adverse Reaction (Intermediate, Verified 10/28/16 17:35) Severe Nausea Past Medical History - General Information source: Patient - Social History Smoking Status: Former Smoker Chew tobacco use (# tins/day): No Frequency of alcohol use: None Drug Abuse: None Family History: CAD, Hypertension Patient has suicidal ideation: No Patient has homicidal ideation: No - Past Medical History Cardiac Medical History: Reports: Hx Congestive Heart Failure, Hx Coronary Artery Disease, Hx Hypertension - medicated Pulmonary Medical History: Reports: Hx Bronchitis, Hx Sleep Apnea Endocrine Medical History: Reports: Hx Hypothyroidism Renal/ Medical History: Reports: Hx End Stage Renal Disease - Stage IV, Hx Renal Insufficiency Malignancy Medical History: Reports: Hx Skin Cancer - Squamous cell GI Medical History: Reports: Hx Diverticulitis, Hx Gastritis, Hx Gastroesophageal Reflux Disease - With hiatal hernia, Hx Colonoscopy, Hx Endoscopy Musculoskeltal Medical History: Reports Hx Arthritis, Reports Hx Musculoskeletal Deformity, Reports Hx Musculoskeletal Trauma Past Surgical History: Reports: Hx Appendectomy, Hx Cholecystectomy, Hx Hysterectomy, Hx Orthopedic Surgery - stas tkr x 2 , foot , hand, carpal tunnel surgery of the right wrist, Hx Pancreatic Surgery, Hx Thyroid Surgery, Hx Tonsillectomy, Other - EGD, hemorrhoidectomy, colonoscopy, cataract extraction - Immunizations Hx Diphtheria, Pertussis, Tetanus Vaccination: No Hx Pneumococcal Vaccination: 03/20/10 <LESLY NORTON - Last Filed: 10/28/16 20:26> Review of Systems - Review of Systems Constitutional: No symptoms reported EENT: No symptoms reported Cardiovascular: See HPI, Heart racing Respiratory: No symptoms reported Gastrointestinal: See HPI, Abdominal pain, Diarrhea, Nausea, Vomiting Genitourinary: No symptoms reported Female Genitourinary: No symptoms reported Musculoskeletal: No symptoms reported Skin: No symptoms reported Hematologic/Lymphatic: No symptoms reported Neurological/Psychological: No symptoms reported -: Yes All other systems reviewed and negative <LESLY NORTON - Last Filed: 10/28/16 20:26> Physical Exam - General General appearance: Alert In distress: None - HEENT Head: Normocephalic, Atraumatic Eyes: Normal Extraocular movements intact: Yes Pupils: PERRL Mucous membranes: Dry - Respiratory Respiratory status: No respiratory distress Breath sounds: Normal - Cardiovascular Rhythm: Regular Murmur: Yes - systolic murmur with a late crescendo - Abdominal Inspection: Morbidly Obese Distension: No distension Tenderness: Tender - Tenderness to palpation of the umbilicus - Back Back: Normal - Extremities General upper extremity: Normal inspection, Normal ROM General lower extremity: Normal inspection, Normal ROM. No: Edema - Neurological Neuro grossly intact: Yes - Psychological Associated symptoms: Normal affect, Normal mood - Skin Skin Temperature: Warm Skin Moisture: Dry Skin Color: Other - Bruising under the umbilicus. <LESLY NORTON - Last Filed: 10/28/16 20:26> - Vital signs Vitals: Temp Pulse BP Pulse Ox 97.8 F 67 137/54 H 92 10/28/16 18:01 10/28/16 18:01 10/28/16 18:01 10/28/16 18:01 Course - Laboratory Result Diagrams: 10/28/16 18:22 10/28/16 18:22 - EKG Interpretation by Ia EKG shows normal: Sinus rhythm, [place], Intervals, ST-T Waves. abnormal: QRS Complexes - Probable old inferior and old lateral infarct Rate: Normal - 69 Rhythm: NSR When compared to previous EKG there are: No significant change - Consults Dr. Booth Time consulted: 20:20 Consulted provider: will come to ER <VIRIDIANA AGUILERA - Last Filed: 10/28/16 20:23> - Laboratory Result Diagrams: 10/28/16 18:22 10/28/16 18:22 <LESLY NORTON - Last Filed: 10/28/16 20:26> - Vital Signs Vital signs: Temp Pulse Resp BP Pulse Ox 97.8 F 67 137/54 H 92 10/28/16 18:01 10/28/16 18:01 10/28/16 18:01 10/28/16 18:01 - Laboratory Laboratory results interpreted by me: 10/28/16 10/28/16 18:22 18:22 RBC 2.74 L Hgb 7.5 L Hct 23.3 L RDW 19.1 H Lymphocytes % 12.8 L BUN 45 H Creatinine 2.96 H Est GFR ( Amer) 18 L Est GFR (Non-Af Amer) 15 L Magnesium 2.4 H Total Protein 5.9 L Discharge - Discharge Admitting Provider: Hospitalist Unit Admitted: Telemetry <VIRIDIANA AGUILERA - Last Filed: 10/28/16 20:23> <LESLY NORTON - Last Filed: 10/28/16 20:26> - Discharge Clinical Impression: Anemia, Chronic GI bleeding, Chronic renal insufficiency, stage IV (severe), Nausea, vomiting, and diarrhea Referrals: TIERA LUGO MD [Primary Care Provider] - Follow up as needed Scribe Documentation - Scribe Written by Scribe:: Ben Hyman, 10/28/2016 1919 acting as scribe for :: Willy <LESLY NORTON - Last Filed: 10/28/16 20:26>
[2016-10-28 19:10] LABS: ALANINE AMINOTRANSFERASE 34 U/L (9-52); ALBUMIN 3.5 g/dL (3.5-5.0); ALKALINE PHOSPHATASE 63 U/L (38-126); ANION GAP 11 (5-19); ASPARTATE AMINO TRANSFERASE 27 U/L (14-36); BILIRUBIN,DIRECT 0.4 mg/dL (0.0-0.4); BILIRUBIN,TOTAL 0.4 mg/dL (0.2-1.3); BLOOD UREA NITROGEN 45 mg/dL (7-20); CALCIUM 9.1 mg/dL (8.4-10.2); CARBON DIOXIDE 24 mmol/L (22-30); CHLORIDE 105 mmol/L (98-107); CREATINE KINASE 68 U/L (30-135); CREATININE RESULT 2.96 mg/dL (0.52-1.25); GLUCOSE 98 mg/dL (75-110); MAGNESIUM 2.4 mg/dL (1.6-2.3); POTASSIUM 4.3 mmol/L (3.6-5.0); SODIUM 139.6 mmol/L (137-145); TOTAL PROTEIN 5.9 g/dL (6.3-8.2)
[2016-10-28 19:11] LABS: ABSOLUTE BASOPHILS # (AUTO) 0.1 10^3/uL (0.0-0.2); ABSOLUTE EOSINOPHILS # (AUTO) 0.1 10^3/uL (0.0-0.6); ABSOLUTE MONOCYTES (AUTO) 0.7 10^3/uL (0.1-1.4); ABSOLUTE NEUT (AUTO) 5.7 10^3/uL (1.7-8.2); BASOPHILS % (AUTO) 0.7 % (0-2); EOSINOPHILS % (AUTO) 1.3 % (0-6); HEMATOCRIT 23.3 % (36.0-47.0); HGB HCT DIFFERENCE -0.8; LYMPHOCYTES % (AUTO) 12.8 % (13-45); MEAN CORPUSCULAR HEMOGLOBIN 27.4 pg (27.0-33.4); MEAN CORPUSCULAR HGB CONC 32.2 g/dL (32.0-36.0); MEAN CORPUSCULAR VOLUME 85 fl (80-97); MONOCYTES % (AUTO) 9.9 % (3-13); RED BLOOD COUNT 2.74 10^6/uL (3.72-5.28); RED CELL DISTRIBUTION WIDTH 19.1 % (11.5-14.0); SEGMENTED NEUTROPHILS % (AUTO) 75.3 % (42-78); WHITE BLOOD COUNT 7.5 10^3/uL (4.0-10.5)
[2016-10-28 19:15] LABS: HEMOGLOBIN 7.5 g/dL (12.0-15.5)
[2016-10-28 19:22] LABS: CREATINE KINASE MB 1.28 ng/mL (<4.55)
[2016-10-28 19:24] LABS: APPEARANCE,URINE CLEAR; BILIRUBIN,URINE NEGATIVE (NEGATIVE); GLUCOSE, URINE NEGATIVE (NEGATIVE); KETONES,URINE NEGATIVE (NEGATIVE); LEUKOCYTE ESTERASE,URINE NEGATIVE (NEGATIVE); NITRITE,URINE NEGATIVE (NEGATIVE); PROTEIN,URINE NEGATIVE (NEGATIVE); UROBILINOGEN,URINE NEGATIVE mg/dL (<2.0)
[2016-10-28 19:27] LABS: TROPONIN I 0.04 ng/mL
[2016-10-28] MEDS ORDERED: ONDANSETRON 4 MG TAB.RAPDIS PO ONE (19:37)
[2016-10-28] MEDS ORDERED: IPRATROPIUM/ALBUTEROL 0.5-2.5 MG/3 ML AMPUL NEB PRN (20:23)
[2016-10-28] MEDS ORDERED: NORMAL SALINE 250 ML IV PRN ×2 (20:23)
[2016-10-28] MEDS ORDERED: PEG 3350/NA SULF,BICARB,CL/KCL 4000 ML PO ONE (20:28)
[2016-10-28] MEDS ORDERED: PANTOPRAZOLE SODIUM 80 MG in NORMAL SALINE 100 ML IV ONE ×2 (20:39→23:30)
[2016-10-28] MEDS ORDERED: NORMAL SALINE 100 ML with PANTOPRAZOLE SODIUM 80 MG IV PRN ×2 (20:39)
[2016-10-28 20:55] LABS: PROTHROMBIN TIME 13.2 SEC (11.4-15.4)
[2016-10-28 22:51] LABS: FOLATE 9.28 ng/mL (>2.76)
[2016-10-28] MEDS ORDERED: PANTOPRAZOLE SODIUM 40 MG VIAL IV PRN (23:18)
--- NOTE | 2016-10-28 23:24 | PDOC H&P ---
History of Present Illness Admission Date/PCP: 10/28/16 20:23 TIERA LUGO MD Patient complains of: Fatigue and nausea History of Present Illness: TARAN MANZANARES is a 81 year old female with a past medical history of chronic and recurrent upper GI bleed, anemia, chronic pain, stage IV chronic kidney disease, hypothyroidism, obesity and obstructive sleep apnea who been her usual state of health until approximately 3 days ago having fecal incontinence with black colored diarrhea. Prompting her to seek evaluation emergency room where she's found to have a significant drop in her hemoglobin from 9.2 6 days ago to 7.5 today. She reports an upper endoscopy by Dr. Morgan within the week for which she does not have the results. She's referred to the hospitalist for admission for symptomatically anemia. Past Medical History Cardiac Medical History: Reports: Congestive Heart Failure, Coronary Artery Disease, Hypertension - medicated Pulmonary Medical History: Reports: Bronchitis, Sleep Apnea Neurological Medical History: Denies: Seizures Endocrine Medical History: Reports: Hypothyroidism Renal/ Medical History: Reports: Chronic Kidney Disease, End Stage Renal Disease - Stage IV, no plan for dialysis Malignancy Medical History: Reports: Skin Cancer - Squamous cell GI Medical History: Reports: Diverticulitis, Gastroesophageal Reflux Disease - With hiatal hernia Musculoskeltal Medical History: Reports: Arthritis Hematology: Reports: Bleeding Tendencies Denies: Anemia, Sickle Cell Disease Past Surgical History Past Surgical History: Reports: Appendectomy, Cholecystectomy, Hysterectomy, Orthopedic Surgery - stas tkr x 2 , foot , hand, carpal tunnel surgery of the right wrist, Tonsillectomy, Other - EGD, hemorrhoidectomy, colonoscopy, cataract extraction Denies: Amputation Social History Information Source: Patient Lives with: Alone Smoking Status: Former Smoker Frequency of Alcohol Use: None Hx Recreational Drug Use: No Drugs: None Hx Prescription Drug Abuse: No - Advance Directive Resuscitation Status: Full Code Family History Family History: CAD, Hypertension Parental Family History Reviewed: Yes Children Family History Reviewed: Yes Sibling(s) Family History Reviewed.: Yes Medication/Allergy Home Medications: Benzonatate [Tessalon Perle 100 mg Capsule] 100 mg PO QAM 10/19/16 Benzonatate [Tessalon Perle 100 mg Capsule] 200 mg PO QPM 10/19/16 Calcium Acetate [Phoslo 667 mg Capsule] 667 mg PO MEALS 10/19/16 Cyclosporine 0.05% Oph Emulsio [Restasis 0.05% Oph Emulsion Pf 0.4 ml] 1 drop OU BID 10/19/16 Fexofenadine HCl [Noemí] 180 mg PO DAILY 10/19/16 Furosemide [Lasix] 20 mg PO QAM 10/19/16 Gabapentin [Neurontin] 600 mg PO QHS 10/19/16 Levothyroxine Sodium [Synthroid] 50 mcg PO QAM 10/19/16 Loteprednol Etabonate [Lotemax 0.5% Ophth Susp] 1 drop OU QPM 10/19/16 Lubiprostone [Amitiza 8 Mcg Capsule] 8 mcg PO DAILY 10/19/16 Mirabegron [Myrbetriq] 50 mg PO DAILY 10/19/16 Pantoprazole Sodium [Protonix] 40 mg PO BID 10/19/16 Pregabalin [Lyrica 50 mg Capsule] 50 mg PO Q12 10/19/16 Sennosides [Senna] 8.6 mg PO BID 10/19/16 Temazepam [Restoril] 30 mg PO QHS 10/19/16 Tramadol HCl [Ultram] 50 mg PO Q6HP PRN 10/19/16 Valsartan [Diovan 160 mg Tablet] 160 mg PO Q12 10/19/16 Allergies/Adverse Reactions: Sulfa (Sulfonamide Antibiotics) Allergy (Intermediate, Verified 10/28/16 17:35) Generalized Itching morphine [Morphine] Adverse Reaction (Intermediate, Verified 10/28/16 17:35) Severe Nausea Review of Systems Constitutional: PRESENT: anorexia, fatigue, weakness Eyes: ABSENT: visual disturbances Ears: ABSENT: hearing changes Cardiovascular: PRESENT: palpitations. ABSENT: chest pain, dyspnea on exertion , edema, orthropnea Respiratory: ABSENT: cough, hemoptysis Gastrointestinal: PRESENT: bloating, constipation, diarrhea, heartburn, nausea Genitourinary: ABSENT: dysuria, hematuria Musculoskeletal: ABSENT: joint swelling Integumentary: ABSENT: rash, wounds Neurological: ABSENT: abnormal gait, abnormal speech, confusion, dizziness, focal weakness, syncope Psychiatric: PRESENT: anxiety Endocrine: ABSENT: cold intolerance, heat intolerance, polydipsia, polyuria Hematologic/Lymphatic: ABSENT: easy bleeding, easy bruising Physical Exam Vital Signs: Temp Pulse Resp BP Pulse Ox 97.5 F 74 20 165/76 H 100 05/11/17 21:40 10/28/16 21:40 10/28/16 21:40 10/28/16 21:40 10/28/16 21:40 Intake & Output 10/27/16 10/28/16 10/29/16 11:59 11:59 11:59 Weight 95.2 kg General appearance: PRESENT: no acute distress, cooperative, obese Head exam: PRESENT: atraumatic, normocephalic Eye exam: PRESENT: conjunctiva pink, EOMI, PERRLA. ABSENT: scleral icterus Ear exam: PRESENT: normal external ear exam Mouth exam: PRESENT: moist, tongue midline Neck exam: ABSENT: carotid bruit, JVD, lymphadenopathy, thyromegaly Respiratory exam: PRESENT: clear to auscultation stas. ABSENT: rales, rhonchi, wheezes Cardiovascular exam: PRESENT: RRR. ABSENT: diastolic murmur, rubs, systolic murmur Pulses: PRESENT: normal dorsalis pedis pul Vascular exam: PRESENT: normal capillary refill GI/Abdominal exam: PRESENT: hyperactive bowel sounds, soft, tenderness. ABSENT : ascites, diminished bowel sounds, distended, firm, guarding, hernia, Saenz's sign, organolmegaly, rebound, rigid Rectal exam: PRESENT: deferred Extremities exam: PRESENT: full ROM. ABSENT: calf tenderness, clubbing, pedal edema Neurological exam: PRESENT: alert, awake, oriented to person, oriented to place , oriented to time, oriented to situation, CN II-XII grossly intact. ABSENT: motor sensory deficit Psychiatric exam: PRESENT: anxious Skin exam: PRESENT: dry, intact, warm. ABSENT: cyanosis, rash Results Laboratory Results: 10/28/16 21:00 Blood Type O POSITIVE Antibody Screen NEGATIVE Impressions: Acute Abdomen Series 10/28/16 18:55 IMPRESSION: NONSPECIFIC BOWEL GAS PATTERN. Assessment & Plan - Diagnosis (1) Anemia Is this a current diagnosis for this admission?: YesPlan: Multifactorial anemia with chronic upper GI bleed secondary to Duelifoy lesion, iron deficiency anemia and chronic kidney disease, I will order anemia studies IV iron, 2 units of pack red blood cells, and reevaluation of CBC (2) Chronic GI bleeding Is this a current diagnosis for this admission?: YesPlan: IV Protonix, GI consultation, bowel prep for consideration of colonoscopy (3) Chronic renal insufficiency, stage IV (severe) Is this a current diagnosis for this admission?: YesPlan: No plan for dialysis, avoid nephrotoxic meds and doses likely contributing to anemic state consider evaluation of Epogen level (4) Nausea, vomiting, and diarrhea Is this a current diagnosis for this admission?: YesPlan: Symptomatic management and abdominal series (5) Obstructive sleep apnea Is this a current diagnosis for this admission?: YesPlan: Cpap, supportive care - Time Time Spent: 50 to 70 Minutes - Inpatient Certification Medical Necessity: Need Close Monitoring Due to Risk of Patient Decompensation
[2016-10-28] MEDS ORDERED: HYDRALAZINE HCL INJ/PF 20 MG/1 ML SDV IV PRN (23:37)
[2016-10-28] MEDS: HEPARIN SOD (PORCINE) 5,000 UNIT/ML 1 ML SYRINGE SUBCUT SCH (23:49)
[2016-10-29] MEDS: ACETAMINOPHEN 325 MG TABLET PO PRN ×2 (04:29→16:11)
[2016-10-29] MEDS: HEPARIN SOD (PORCINE) 5,000 UNIT/ML 1 ML SYRINGE SUBCUT SCH ×3 (06:05→22:27)
[2016-10-29] MEDS: ONDANSETRON HCL INJ/PF 4 MG/2 ML SDV IV PRN ×2 (08:55→16:12)
[2016-10-29 09:22] LABS: ABSOLUTE BASOPHILS # (AUTO) 0.1 10^3/uL (0.0-0.2); ABSOLUTE EOSINOPHILS # (AUTO) 0.1 10^3/uL (0.0-0.6); ABSOLUTE MONOCYTES (AUTO) 0.7 10^3/uL (0.1-1.4); ABSOLUTE NEUT (AUTO) 6.1 10^3/uL (1.7-8.2); BASOPHILS % (AUTO) 0.8 % (0-2); EOSINOPHILS % (AUTO) 1.4 % (0-6); HEMATOCRIT 28.5 % (36.0-47.0); HEMOGLOBIN 9.4 g/dL (12.0-15.5); HGB HCT DIFFERENCE -0.3; LYMPHOCYTES % (AUTO) 12.2 % (13-45); MEAN CORPUSCULAR HEMOGLOBIN 27.6 pg (27.0-33.4); MEAN CORPUSCULAR HGB CONC 32.9 g/dL (32.0-36.0); MEAN CORPUSCULAR VOLUME 84 fl (80-97); MONOCYTES % (AUTO) 8.6 % (3-13); RED BLOOD COUNT 3.39 10^6/uL (3.72-5.28); RED CELL DISTRIBUTION WIDTH 17.4 % (11.5-14.0); WHITE BLOOD COUNT 7.9 10^3/uL (4.0-10.5)
[2016-10-29 09:39] LABS: ANION GAP 13 (5-19); BLOOD UREA NITROGEN 39 mg/dL (7-20); CALCIUM 8.9 mg/dL (8.4-10.2); CARBON DIOXIDE 25 mmol/L (22-30); CHLORIDE 103 mmol/L (98-107); CREATININE RESULT 2.72 mg/dL (0.52-1.25); GLUCOSE 95 mg/dL (75-110); POTASSIUM 4.2 mmol/L (3.6-5.0); SODIUM 141.3 mmol/L (137-145)
--- NOTE | 2016-10-29 12:04 | EKG REPORT ---
SEVERITY:- ABNORMAL ECG - SINUS RHYTHM PROBABLE INFERIOR INFARCT, OLD PROBABLE LATERAL INFARCT, OLD : Confirmed by: Perla Peralta 29-Oct-2016 12:02:57
--- NOTE | 2016-10-29 12:16 | PDOC PROGRESS REPORT ---
Subjective Progress Note for:: 10/29/16 Subjective:: No reported abdominal pain nausea or vomiting, no chills or fever, episode of black stools the other day. No hematemesis. There is chronic constipation. No dysuria urgency or frequency. Physical Exam Vital Signs: Temp Pulse Resp BP Pulse Ox 98.3 F 80 19 147/62 H 99 10/29/16 11:43 10/29/16 11:43 10/29/16 11:43 10/29/16 11:43 10/29/16 11:43 Intake & Output 10/28/16 10/29/16 10/30/16 06:59 06:59 06:59 Intake Total 2400 Balance 2400 Weight 95.2 kg General appearance: PRESENT: no acute distress, cooperative, obese Head exam: PRESENT: normocephalic Eye exam: PRESENT: conjunctiva pale, EOMI Mouth exam: PRESENT: moist, neck supple Neck exam: ABSENT: JVD Respiratory exam: PRESENT: clear to auscultation stas Cardiovascular exam: PRESENT: RRR. ABSENT: gallop GI/Abdominal exam: PRESENT: hypoactive bowel sounds. ABSENT: distended - Obese Extremities exam: PRESENT: other - Trace lower extremity edema Neurological exam: PRESENT: alert, awake, oriented to situation Skin exam: PRESENT: dry, warm. ABSENT: cyanosis Results Laboratory Results: 10/29/16 09:12 10/29/16 09:12 10/28/16 10/29/16 10/29/16 21:00 05:25 05:25 WBC RBC Hgb Hct MCV MCH MCHC RDW Plt Count Seg Neutrophils % Lymphocytes % Monocytes % Eosinophils % Basophils % Absolute Neutrophils Absolute Lymphocytes Absolute Monocytes Absolute Eosinophils Absolute Basophils Sodium Potassium Chloride Carbon Dioxide Anion Gap BUN Creatinine Est GFR ( Amer) Est GFR (Non-Af Amer) Glucose Calcium Stool Occult Blood POSITIVE Stool for White Cells NO WBCs SEEN Blood Type O POSITIVE Antibody Screen NEGATIVE 10/29/16 10/29/16 09:12 09:12 WBC 7.9 RBC 3.39 L Hgb 9.4 L Hct 28.5 L MCV 84 MCH 27.6 MCHC 32.9 RDW 17.4 H Plt Count 147 L Seg Neutrophils % 77.0 Lymphocytes % 12.2 L Monocytes % 8.6 Eosinophils % 1.4 Basophils % 0.8 Absolute Neutrophils 6.1 Absolute Lymphocytes 1.0 Absolute Monocytes 0.7 Absolute Eosinophils 0.1 Absolute Basophils 0.1 Sodium 141.3 Potassium 4.2 Chloride 103 Carbon Dioxide 25 Anion Gap 13 BUN 39 H Creatinine 2.72 H Est GFR ( Amer) 20 L Est GFR (Non-Af Amer) 17 L Glucose 95 Calcium 8.9 Stool Occult Blood Stool for White Cells Blood Type Antibody Screen Impressions: Acute Abdomen Series 10/28/16 18:55 IMPRESSION: NONSPECIFIC BOWEL GAS PATTERN. Assessment & Plan - Diagnosis (1) Chronic GI bleeding Is this a current diagnosis for this admission?: Yes (2) Anemia Qualifiers: Anemia type: iron deficiency Iron deficiency anemia type: chronic blood loss Qualified Code(s): D50.0 - Iron deficiency anemia secondary to blood loss (chronic) Is this a current diagnosis for this admission?: Yes (3) Chronic renal insufficiency, stage IV (severe) Is this a current diagnosis for this admission?: Yes (4) Congestive heart failure (CHF) Qualifiers: Congestive heart failure type: diastolic Congestive heart failure chronicity: chronic Qualified Code(s): I50.32 - Chronic diastolic ( congestive) heart failure Is this a current diagnosis for this admission?: Yes (5) GERD (gastroesophageal reflux disease) Qualifiers: Esophagitis presence: esophagitis presence not specified Qualified Code(s): K21.9 - Gastro-esophageal reflux disease without esophagitis Is this a current diagnosis for this admission?: Yes (6) Hypertension Qualifiers: Hypertension type: essential hypertension Qualified Code(s): I10 - Essential (primary) hypertension Is this a current diagnosis for this admission?: Yes (7) Hypothyroid Qualifiers: Hypothyroidism type: unspecified Qualified Code(s): E03.9 - Hypothyroidism, unspecified Is this a current diagnosis for this admission?: Yes (8) Obesity (BMI 30.0-34.9) Is this a current diagnosis for this admission?: Yes (9) Obstructive sleep apnea Is this a current diagnosis for this admission?: Yes (10) Seasonal allergies Qualifiers: Allergic rhinitis trigger: unspecified Qualified Code(s): J30.2 - Other seasonal allergic rhinitis Is this a current diagnosis for this admission?: Yes - Time Time Spent with patient: 25-34 minutes - Plan Summary Plan Summary: Case discussed with Dr. Choi. Patient received IV iron infusion last time the patient was here earlier this month, we will give a dose appropriate. In the meantime, awaiting gastroenterology for endoscopic studies. We will continue to monitor hematocrit and transfuse as needed. Continue supportive care at this time. Continue proton pump inhibitor.
[2016-10-29] MEDS ORDERED: EPOETIN ALFA INJ 40000 UNIT/1 ML (ONCOLOGY) SUBCUT ONE (13:00)
[2016-10-30] MEDS: ONDANSETRON HCL INJ/PF 4 MG/2 ML SDV IV PRN ×2 (00:15→10:55)
[2016-10-30 05:46] LABS: HEMATOCRIT 28.1 % (36.0-47.0); HEMOGLOBIN 9.3 g/dL (12.0-15.5); HGB HCT DIFFERENCE -0.2; MEAN CORPUSCULAR HEMOGLOBIN 27.9 pg (27.0-33.4); MEAN CORPUSCULAR HGB CONC 33.2 g/dL (32.0-36.0); MEAN CORPUSCULAR VOLUME 84 fl (80-97); RED BLOOD COUNT 3.33 10^6/uL (3.72-5.28); RED CELL DISTRIBUTION WIDTH 18.9 % (11.5-14.0); WHITE BLOOD COUNT 6.8 10^3/uL (4.0-10.5)
[2016-10-30 05:58] LABS: ANION GAP 13 (5-19); BLOOD UREA NITROGEN 31 mg/dL (7-20); CALCIUM 9.1 mg/dL (8.4-10.2); CARBON DIOXIDE 23 mmol/L (22-30); CHLORIDE 106 mmol/L (98-107); CREATININE RESULT 2.61 mg/dL (0.52-1.25); GLUCOSE 92 mg/dL (75-110); POTASSIUM 4.2 mmol/L (3.6-5.0); SODIUM 141.8 mmol/L (137-145)
[2016-10-30] MEDS: HEPARIN SOD (PORCINE) 5,000 UNIT/ML 1 ML SYRINGE SUBCUT SCH ×2 (06:36→18:11)
[2016-10-30] MEDS ORDERED: TRAMADOL HCL 50 MG TABLET PO PRN (09:51)
[2016-10-30] MEDS ORDERED: (PENDING PHARMACY ID) (Sennosides [Senna] 8.6 MG) PO SCH (10:00)
[2016-10-30] MEDS ORDERED: (PENDING PHARMACY ID) (Mirabegron [Myrbetriq] 50 MG) PO SCH (10:00)
[2016-10-30] MEDS: PANTOPRAZOLE SODIUM 40 MG VIAL IV SCH (10:36)
[2016-10-30] MEDS: PREGABALIN 50 MG CAPSULE PO SCH (10:56)
[2016-10-30] MEDS: VALSARTAN 160 MG TABLET PO SCH (10:56)
[2016-10-30] MEDS ORDERED: FUROSEMIDE 20 MG TABLET PO ONE (11:00)
[2016-10-30] MEDS ORDERED: LEVOTHYROXINE SODIUM 0.05 MG TABLET PO ONE (11:00)
[2016-10-30] MEDS ORDERED: LORATADINE 10 MG TABLET PO ONE (11:00)
[2016-10-30] MEDS ORDERED: NORMAL SALINE 1000 ML 1,000 ML IV PRN (11:07)
--- NOTE | 2016-10-30 11:28 | PDOC PROGRESS REPORT ---
Subjective Progress Note for:: 10/30/16 Subjective:: Patient did not sleep well due to the bed and requesting specialty mattress. Denies diarrhea, melena name medication at this time. Patient reports episodes of intermittent vomiting which has been chronic but no hematemesis. No chills or fever. No abdominal pain. Has chronic back pain and constipation. BP started to increase. Physical Exam Vital Signs: Temp Pulse Resp BP Pulse Ox 98.0 F 78 24 H 180/81 H 97 10/30/16 07:26 10/30/16 07:26 10/30/16 07:26 10/30/16 07:26 10/30/16 07:26 Intake & Output 10/29/16 10/30/16 10/31/16 06:59 06:59 06:59 Intake Total 2400 785 Balance 2400 785 Weight 95.2 kg 95.2 kg General appearance: PRESENT: no acute distress, cooperative, obese Head exam: PRESENT: normocephalic Eye exam: PRESENT: EOMI Mouth exam: PRESENT: moist, neck supple Neck exam: ABSENT: JVD Respiratory exam: PRESENT: clear to auscultation stas Cardiovascular exam: PRESENT: RRR. ABSENT: gallop GI/Abdominal exam: PRESENT: distended - Obese, soft. ABSENT: tenderness Extremities exam: PRESENT: other - Trace pretibial edema Neurological exam: PRESENT: alert, awake, oriented to situation Skin exam: PRESENT: dry, warm. ABSENT: cyanosis Results Laboratory Results: 10/30/16 05:02 10/30/16 05:02 10/30/16 10/30/16 05:02 05:02 WBC 6.8 RBC 3.33 L Hgb 9.3 L Hct 28.1 L MCV 84 MCH 27.9 MCHC 33.2 RDW 18.9 H Plt Count 146 L Sodium 141.8 Potassium 4.2 Chloride 106 Carbon Dioxide 23 Anion Gap 13 BUN 31 H Creatinine 2.61 H Est GFR ( Amer) 21 L Est GFR (Non-Af Amer) 18 L Glucose 92 Calcium 9.1 Impressions: Acute Abdomen Series 10/28/16 18:55 IMPRESSION: NONSPECIFIC BOWEL GAS PATTERN. Assessment & Plan - Diagnosis (1) Chronic GI bleeding Is this a current diagnosis for this admission?: Yes (2) Anemia Qualifiers: Anemia type: iron deficiency Iron deficiency anemia type: chronic blood loss Qualified Code(s): D50.0 - Iron deficiency anemia secondary to blood loss (chronic) Is this a current diagnosis for this admission?: Yes (3) Chronic renal insufficiency, stage IV (severe) Is this a current diagnosis for this admission?: Yes (4) Congestive heart failure (CHF) Qualifiers: Congestive heart failure type: diastolic Congestive heart failure chronicity: chronic Qualified Code(s): I50.32 - Chronic diastolic ( congestive) heart failure Is this a current diagnosis for this admission?: Yes (5) GERD (gastroesophageal reflux disease) Qualifiers: Esophagitis presence: esophagitis presence not specified Qualified Code(s): K21.9 - Gastro-esophageal reflux disease without esophagitis Is this a current diagnosis for this admission?: Yes (6) Hypertension Qualifiers: Hypertension type: essential hypertension Qualified Code(s): I10 - Essential (primary) hypertension Is this a current diagnosis for this admission?: Yes (7) Hypothyroid Qualifiers: Hypothyroidism type: unspecified Qualified Code(s): E03.9 - Hypothyroidism, unspecified Is this a current diagnosis for this admission?: Yes (8) Obesity (BMI 30.0-34.9) Is this a current diagnosis for this admission?: Yes (9) Obstructive sleep apnea Is this a current diagnosis for this admission?: Yes (10) Seasonal allergies Qualifiers: Allergic rhinitis trigger: unspecified Qualified Code(s): J30.2 - Other seasonal allergic rhinitis Is this a current diagnosis for this admission?: Yes - Time Time Spent with patient: 25-34 minutes - Plan Summary Plan Summary: We will discontinue the Protonix drip and put the patient on IV Protonix twice daily. We will resume antihypertensive medications. Recheck hemoglobin and hematocrit in the morning. If stable possibly can be discharged home. If it continues to trend down we will order a bleeding scan. Resume home medications today.
[2016-10-30] MEDS ORDERED: LUBIPROSTONE 8 MCG CAPSULE PO ONE (11:30)
[2016-10-30] MEDS: CALCIUM ACETATE 667 MG CAPSULE PO SCH ×2 (12:22→18:10)
[2016-10-30] MEDS ORDERED: (PENDING PHARMACY ID) (Loteprednol Etabonate [Lotemax 0.5% Ophth Susp] 1 DROP) OU SCH (18:00)
[2016-10-30] MEDS: SENNOSIDES/DOCUSATE 8.6-50 MG 1 EACH TABLET PO SCH (18:10)
[2016-10-30] MEDS ORDERED: TEMAZEPAM 15 MG CAPSULE PO SCH (22:00)
[2016-10-30] MEDS ORDERED: GABAPENTIN 300 MG CAPSULE PO SCH (22:00)
[2016-10-30] MEDS ORDERED: (PENDING PHARMACY ID) (Temazepam [Restoril] 30 MG) PO SCH (22:00)
[2016-10-31] MEDS: CYCLOSPORINE 0.05% OPH EMULSIO 0.4 ML DROPERETTE OU SCH ×2 (00:10→10:30)
[2016-10-31] MEDS: HEPARIN SOD (PORCINE) 5,000 UNIT/ML 1 ML SYRINGE SUBCUT SCH ×2 (00:10→06:11)
[2016-10-31] MEDS: PANTOPRAZOLE SODIUM 40 MG VIAL IV SCH ×2 (00:10→10:30)
[2016-10-31] MEDS: PREGABALIN 50 MG CAPSULE PO SCH ×2 (00:10→10:34)
[2016-10-31] MEDS: VALSARTAN 160 MG TABLET PO SCH ×2 (00:10→10:31)
[2016-10-31 04:49] LABS: HEMATOCRIT 28.1 % (36.0-47.0); HEMOGLOBIN 9.1 g/dL (12.0-15.5); HGB HCT DIFFERENCE -0.8; MEAN CORPUSCULAR HEMOGLOBIN 27.9 pg (27.0-33.4); MEAN CORPUSCULAR HGB CONC 32.5 g/dL (32.0-36.0); MEAN CORPUSCULAR VOLUME 86 fl (80-97); RED BLOOD COUNT 3.27 10^6/uL (3.72-5.28); RED CELL DISTRIBUTION WIDTH 18.6 % (11.5-14.0); WHITE BLOOD COUNT 6.8 10^3/uL (4.0-10.5)
[2016-10-31 05:13] LABS: ANION GAP 10 (5-19); BLOOD UREA NITROGEN 25 mg/dL (7-20); CARBON DIOXIDE 25 mmol/L (22-30); CHLORIDE 105 mmol/L (98-107); CREATININE RESULT 2.48 mg/dL (0.52-1.25); GLUCOSE 86 mg/dL (75-110); POTASSIUM 4.1 mmol/L (3.6-5.0); SODIUM 139.5 mmol/L (137-145)
[2016-10-31] MEDS ORDERED: FUROSEMIDE 20 MG TABLET PO SCH (08:00)
[2016-10-31] MEDS ORDERED: LEVOTHYROXINE SODIUM 0.05 MG TABLET PO SCH (08:00)
[2016-10-31] MEDS: CALCIUM ACETATE 667 MG CAPSULE PO SCH (08:07)
[2016-10-31] MEDS ORDERED: LORATADINE 10 MG TABLET PO SCH (10:00)
[2016-10-31] MEDS ORDERED: LUBIPROSTONE 8 MCG CAPSULE PO SCH (10:00)
[2016-10-31] MEDS: SENNOSIDES/DOCUSATE 8.6-50 MG 1 EACH TABLET PO SCH (10:33)
[2016-10-31 11:02] VITALS: BP 141/76
--- NOTE | 2016-10-31 11:29 | PDOC DISCHARGE SUMMARY ---
General - Admit/Disc Date/PCP Admission Date/Primary Care Provider: 10/28/16 20:23 TIERA LUGO MD Discharge Date: 10/31/16 - Discharge Diagnosis (1) Chronic GI bleeding Is this a current diagnosis for this admission?: Yes (2) Anemia Is this a current diagnosis for this admission?: Yes (3) Chronic renal insufficiency, stage IV (severe) Is this a current diagnosis for this admission?: Yes (4) Congestive heart failure (CHF) Is this a current diagnosis for this admission?: Yes (5) GERD (gastroesophageal reflux disease) Is this a current diagnosis for this admission?: Yes (6) Hypertension Is this a current diagnosis for this admission?: Yes (7) Hypothyroid Is this a current diagnosis for this admission?: Yes (8) Obesity (BMI 30.0-34.9) Is this a current diagnosis for this admission?: Yes (9) Obstructive sleep apnea Is this a current diagnosis for this admission?: Yes (10) Seasonal allergies Is this a current diagnosis for this admission?: Yes - Additional Information Resuscitation Status: Full Code Discharge Diet: Cardiac - low-fat low-salt, Diabetic - no concentrated sweets, Other (Comments) - renal Discharge Activity: Activity As Tolerated, Balance Activity w/Rest Home Medications: Calcium Acetate [Phoslo 667 mg Capsule] 667 mg PO MEALS 10/19/16 Cyclosporine 0.05% Oph Emulsio [Restasis 0.05% Oph Emulsion Pf 0.4 ml] 1 drop OU BID 10/19/16 Fexofenadine HCl [Noemí] 180 mg PO DAILY 10/19/16 Furosemide [Lasix] 20 mg PO QAM 10/19/16 Gabapentin [Neurontin] 600 mg PO QHS 10/19/16 Levothyroxine Sodium [Synthroid] 50 mcg PO QAM 10/19/16 Loteprednol Etabonate [Lotemax 0.5% Ophth Susp] 1 drop OU QPM 10/19/16 Lubiprostone [Amitiza 8 Mcg Capsule] 8 mcg PO DAILY 10/19/16 Mirabegron [Myrbetriq] 50 mg PO DAILY 10/19/16 Pantoprazole Sodium [Protonix] 40 mg PO BID 10/19/16 Pregabalin [Lyrica 50 mg Capsule] 50 mg PO Q12 10/19/16 Sennosides [Senna] 8.6 mg PO BID 10/19/16 Temazepam [Restoril] 30 mg PO QHS 10/19/16 Tramadol HCl [Ultram] 50 mg PO Q6HP PRN 10/19/16 Valsartan [Diovan 160 mg Tablet] 160 mg PO Q12 10/19/16 Additional Information: Repeat hemoglobin and hematocrit in one to 2 weeks with primary care physician or Dr. Choi Follow up final report of stool cultures outpatient with primary care physician. History of Present Illness Patient complains of: Fatigue and nausea History of Present Illness: TARAN MANZANARES is a 81 year old female, history of anemia of chronic disease in combination with chronic blood loss, chronic upper GI bleeding, chronic kidney disease stage IV to V, percent to the hospital because of the above complaint. 3 days before admission, patient reports fecal incontinence with subsequent black loose stools, prompting emergency room visit. In the ER, hemoglobin was found to be low at 7.5 and was referred for admission, and 2 units of packed RBC was initiated. The patient was then referred for admission. For details please refer to history and physical examination performed by the admitting physician. Hospital Course Hospital Course: The patient was admitted to telemetry, the patient was started on intravenous Protonix, the patient was given 2 units of packed RBC. Stool culture was performed and today the result is pending. The patient has chronic constipation as well, and eventually her diarrhea resolved. No melena reported. Patient had a recent upper endoscopy showing no active bleeding, but showed mild gastritis and esophagitis and short segment of Choi's esophagus. Dr. Padron was consulted and recommended outpatient follow-up with gastroenterology. Patient reportedly had recent colonoscopies as well. The patient was given 1 L of IV fluids, and over all improved clinically. Patient requested to be discharged home and follow up on an outpatient basis. She follows up with hematology clinic for erythropoietin administration, her public health officer was consulted over the phone and recommended to give 1 dose of Procrit which was given. Physical Exam Vital Signs: Temp Pulse Resp BP Pulse Ox 98.0 F 76 18 141/76 H 100 10/31/16 11:01 10/31/16 11:01 10/31/16 11:01 10/31/16 11:01 10/31/16 11:01 Intake & Output 05/10/31/16 11/01/16 06:59 06:59 06:59 Intake Total 785 1729 Output Total 1600 Balance 785 129 Weight 95.2 kg 95.6 kg General appearance: PRESENT: no acute distress, obese Head exam: PRESENT: normocephalic Eye exam: PRESENT: conjunctiva pale, EOMI Mouth exam: PRESENT: moist, neck supple Neck exam: ABSENT: JVD Respiratory exam: PRESENT: clear to auscultation stas. ABSENT: rhonchi, wheezes Cardiovascular exam: PRESENT: RRR. ABSENT: gallop GI/Abdominal exam: PRESENT: normal bowel sounds, soft. ABSENT: distended - Obese Extremities exam: PRESENT: other - Trace pretibial edema Neurological exam: PRESENT: alert, awake, oriented to person, oriented to place , oriented to time, oriented to situation Skin exam: PRESENT: dry, warm. ABSENT: cyanosis Results Laboratory Results: 10/31/16 03:56 10/31/16 03:56 10/31/16 10/31/16 03:56 03:56 WBC 6.8 RBC 3.27 L Hgb 9.1 L Hct 28.1 L MCV 86 MCH 27.9 MCHC 32.5 RDW 18.6 H Plt Count 153 Sodium 139.5 Potassium 4.1 Chloride 105 Carbon Dioxide 25 Anion Gap 10 BUN 25 H Creatinine 2.48 H Est GFR ( Amer) 23 L Est GFR (Non-Af Amer) 19 L Glucose 86 Calcium 9.0 Impressions: Acute Abdomen Series 10/28/16 18:55 IMPRESSION: NONSPECIFIC BOWEL GAS PATTERN. Qualifiers PATEINT BEING DISCHARGED WITH ANY OF THE FOLLOWING DIAGNOSIS?: No Plan Discharge Plan: 1. Follow-up with primary care physician in one week, follow-up with Dr. Choi and 1-2 weeks, follow-up with Dr. Padron in 3-5 days. Time Spent: Less than 30 Minutes
== END 2016-10-31 11:25 | disposition home or self-care (01) | DRG 811 ==
LOC: ER 17:27 → EH 20:23 → UNDOADMIN 20:36 → EH 20:36 → 4S 21:41
PROVIDERS: ADMIT Internal Medicine; ATTEND Internal Medicine
PROC: 30233N1 Transfusion of Nonautologous Red Blood Cells into Peripheral Vein, Percutaneous Approach (ICD-10-PCS; principal; 2016-10-29)
DX: D50.0 Iron deficiency anemia secondary to blood loss (chronic) (principal); K31.82 Dieulafoy lesion (hemorrhagic) of stomach and duodenum; N18.4 Chronic kidney disease, stage 4 (severe); I13.0 Hypertensive heart and chronic kidney disease with heart failure and stage 1 through stage 4 chronic kidney disease, or unspecified chronic kidney disease; I50.32 Chronic diastolic (congestive) heart failure; D63.1 Anemia in chronic kidney disease; G89.29 Other chronic pain; K22.70 Barrett's esophagus without dysplasia; K44.9 Diaphragmatic hernia without obstruction or gangrene; E03.9 Hypothyroidism, unspecified; G47.33 Obstructive sleep apnea (adult) (pediatric); E66.9 Obesity, unspecified; J30.2 Other seasonal allergic rhinitis; Z68.35 Body mass index [BMI] 35.0-35.9, adult; K21.9 Gastro-esophageal reflux disease without esophagitis; M19.90 Unspecified osteoarthritis, unspecified site; Z85.828 Personal history of other malignant neoplasm of skin; Z90.49 Acquired absence of other specified parts of digestive tract; Z90.710 Acquired absence of both cervix and uterus; Z87.891 Personal history of nicotine dependence; Z82.49 Family history of ischemic heart disease and other diseases of the circulatory system; Z88.2 Allergy status to sulfonamides; Z88.6 Allergy status to analgesic agent; K59.09 Other constipation; Z98.49 Cataract extraction status, unspecified eye
CPT/HCPCS: 36415; 36430; 74022; 80048; 80053; 81001; 82272; 82550; 82553; 82607; 82728; 82746; 83540; 83550; 83735; 84484; 85025; 85027; 85045; 85610; 86850; 86900; 86901; 86920; 87045; 87205; 87493; 89055; 93005; 93010; 94640; 99285; A9270 GY; J0885; J1644; J2405; J3490; J7030; J7620; P9016; S0119; S0164

== ENCOUNTER → 2016-12-10 | Outpatient (CLI) | payer MEDICARE, OTHER ==
[2016-12-10 12:37] LABS: ANION GAP 11 (5-19); BLOOD UREA NITROGEN 30 mg/dL (7-20); CALCIUM 9.5 mg/dL (8.4-10.2); CARBON DIOXIDE 23 mmol/L (22-30); CHLORIDE 100 mmol/L (98-107); CREATININE RESULT 2.44 mg/dL (0.52-1.25); GLUCOSE 93 mg/dL (75-110); PHOSPHORUS 4.4 mg/dL (2.5-4.5); POTASSIUM 4.7 mmol/L (3.6-5.0); SODIUM 134.2 mmol/L (137-145)
[2016-12-11 12:37] LABS: CREATININE URINE 78.8 mg/dL (Not Estab.); MICROALBUMIN URINE 12.8 ug/mL (Not Estab.)
== END ==
LOC: OD 11:32
PROVIDERS: ATTEND Internal Medicine Nephrology
DX: N18.4 Chronic kidney disease, stage 4 (severe) (principal); E83.39 Other disorders of phosphorus metabolism; E55.9 Vitamin D deficiency, unspecified
CPT/HCPCS: 36415; 80048; 82043; 82306; 82570; 84100

== ENCOUNTER → 2017-01-04 | Outpatient (CLI) | payer MEDICARE, OTHER ==
--- NOTE | 2017-01-04 11:06 | RADIOLOGY REPORT (SQ) ---
EXAM DESCRIPTION: CT HEAD WITHOUT COMPLETED DATE/TIME: 01/04/2017 10:58 am REASON FOR STUDY: HEADACHE R51 HEADACHE COMPARISON: 02/17/2016 TECHNIQUE: Axial images acquired through the brain without intravenous contrast. Images reviewed wi th bone, brain and subdural windows. Images stored on PACS. All CT scanners at this facility use dose modulation, iterative reconstruction, and/or weight based d osing when appropriate to reduce radiation dose to as low as reasonably achievable (ALARA). [facility]: Dose Right [facility]: CareDose [facility]: Dose Right [facility]: Teradose 4D [facility]: FeedHenry RADIATION DOSE: Up-to-date CT equipment and radiation dose reduction techniques were employed. CTDIv ol: 49.0 mGy. DLP: 783 mGy-cm.mGy. LIMITATIONS: None. FINDINGS: VENTRICLES: Prominent. CEREBRUM: No masses. No hemorrhage. No midline shift. Areas of low density in the white matter mos t likely due to chronic micro-vascular ischemic change. No evidence for acute infarction. CEREBELLUM: No masses. No hemorrhage. No alteration of density. No evidence for acute infarction. EXTRAAXIAL SPACES: Age-related involutional change. No fluid collections. No masses. ORBITS AND GLOBE: No intra- or extraconal masses. Normal contour of globe without masses. CALVARIUM: No fracture. PARANASAL SINUSES: No fluid or mucosal thickening. SOFT TISSUES: No mass or hematoma. OTHER: No other significant finding. IMPRESSION: CHRONIC CHANGES OF ATROPHY AND MICROVASCULAR ISCHEMIA. NO ACUTE PROCESS. TECHNICAL DOCUMENTATION: JOB ID: [id number] Quality ID # [id number]: Final reports with documentation of one or more dose reduction techniques (e.g., Au tomated exposure control, adjustment of the mA and/or kV according to patient size, use of iterative reconstruction technique) 2010 [employer]- All Rights Reserved
--- NOTE | 2017-01-04 12:13 | RADIOLOGY REPORT (SQ) ---
EXAM DESCRIPTION: CERV SP 4 OR 5 VIEWS COMPLETED DATE/TIME: 01/04/2017 11:14 am REASON FOR STUDY: HEADACHE R51 HEADACHE COMPARISON: None. NUMBER OF VIEWS: Five views. TECHNIQUE: AP, lateral, obliques and odontoid radiographic images acquired of the cervical spine. LIMITATIONS: None. FINDINGS: MINERALIZATION: Osteopenia. ALIGNMENT: Anatomic. VERTEBRAE: Vertebral bodies of normal height. DISCS: Multilevel degenerative discs with disc space narrowing and osteophytes. FORAMINA: Multilevel foramina bilateral. LATERAL AND POSTERIOR ELEMENTS: Facets, lateral masses and spinous processes without significant find ings. HARDWARE: None in the spine. SOFT TISSUES: No masses or calcifications. Lung apices clear. OTHER: No other significant finding. IMPRESSION: Diffuse degenerative disc disease and foraminal osteophytes. TECHNICAL DOCUMENTATION: JOB ID: [id number]- All Rights Reserved
== END ==
LOC: RAD 10:42
PROVIDERS: ATTEND Internal Medicine
DX: R51 Headache (principal); M50.30 Other cervical disc degeneration, unspecified cervical region
CPT/HCPCS: 70450; 72050

== ENCOUNTER → 2017-03-14 | Outpatient (CLI) | payer MEDICARE, OTHER ==
[2017-03-14 08:29] LABS: ABSOLUTE BASOPHILS # (AUTO) 0.1 10^3/uL (0.0-0.2); ABSOLUTE EOSINOPHILS # (AUTO) 0.2 10^3/uL (0.0-0.6); ABSOLUTE LYMPHOCYTES (AUTO) 1.1 10^3/uL (0.5-4.7); ABSOLUTE MONOCYTES (AUTO) 0.5 10^3/uL (0.1-1.4); BASOPHILS % (AUTO) 1.4 % (0-2); EOSINOPHILS % (AUTO) 3.3 % (0-6); HEMATOCRIT 33.7 % (36.0-47.0); HEMOGLOBIN 11.4 g/dL (12.0-15.5); HGB HCT DIFFERENCE 0.5; LYMPHOCYTES % (AUTO) 23.2 % (13-45); MEAN CORPUSCULAR HEMOGLOBIN 30.9 pg (27.0-33.4); MEAN CORPUSCULAR VOLUME 91 fl (80-97); MONOCYTES % (AUTO) 11.2 % (3-13); RED CELL DISTRIBUTION WIDTH 14.1 % (11.5-14.0); SEGMENTED NEUTROPHILS % (AUTO) 60.9 % (42-78); WHITE BLOOD COUNT 4.9 10^3/uL (4.0-10.5)
[2017-03-14 08:37] LABS: APPEARANCE,URINE CLEAR; BILIRUBIN,URINE NEGATIVE (NEGATIVE); GLUCOSE, URINE NEGATIVE (NEGATIVE); KETONES,URINE NEGATIVE (NEGATIVE); LEUKOCYTE ESTERASE,URINE NEGATIVE (NEGATIVE); NITRITE,URINE NEGATIVE (NEGATIVE); PROTEIN,URINE NEGATIVE (NEGATIVE); URINE SPECIFIC GRAVITY 1.009; UROBILINOGEN,URINE NEGATIVE mg/dL (<2.0)
[2017-03-14 08:56] LABS: ANION GAP 13 (5-19); BLOOD UREA NITROGEN 39 mg/dL (7-20); CALCIUM 9.5 mg/dL (8.4-10.2); CARBON DIOXIDE 24 mmol/L (22-30); CHLORIDE 105 mmol/L (98-107); CREATININE RESULT 2.06 mg/dL (0.52-1.25); GLUCOSE 87 mg/dL (75-110); POTASSIUM 4.6 mmol/L (3.6-5.0); SODIUM 141.8 mmol/L (137-145)
[2017-03-15 08:14] LABS: VITAMIN D 25-HYDROXY 34.4 ng/mL (30.0-100.0)
[2017-03-15 12:39] LABS: CREATININE URINE 79.8 mg/dL (Not Estab.); MICROALBUMIN URINE 16.8 ug/mL (Not Estab.)
== END ==
LOC: OD 07:19
PROVIDERS: ATTEND Internal Medicine Nephrology
DX: N18.4 Chronic kidney disease, stage 4 (severe) (principal); D63.1 Anemia in chronic kidney disease; E83.39 Other disorders of phosphorus metabolism; E55.9 Vitamin D deficiency, unspecified
CPT/HCPCS: 36415; 80048; 81001; 82040; 82043; 82306; 82570; 83970; 85025

== ENCOUNTER 2017-03-21 07:50 | Emergency (ER) | payer MEDICARE, OTHER ==
[2017-03-21] MEDS ORDERED: IPRATROPIUM/ALBUTEROL 0.5-2.5 MG/3 ML AMPUL NEB ONE ×2 (08:09→10:02)
[2017-03-21 08:48] LABS: ABSOLUTE EOSINOPHILS # (AUTO) 0.2 10^3/uL (0.0-0.6); ABSOLUTE LYMPHOCYTES (AUTO) 1.4 10^3/uL (0.5-4.7); ABSOLUTE MONOCYTES (AUTO) 0.8 10^3/uL (0.1-1.4); ABSOLUTE NEUT (AUTO) 3.6 10^3/uL (1.7-8.2); BASOPHILS % (AUTO) 0.8 % (0-2); EOSINOPHILS % (AUTO) 3.3 % (0-6); HEMATOCRIT 31.3 % (36.0-47.0); HEMOGLOBIN 10.7 g/dL (12.0-15.5); HGB HCT DIFFERENCE 0.8; LYMPHOCYTES % (AUTO) 22.7 % (13-45); MEAN CORPUSCULAR HGB CONC 34.1 g/dL (32.0-36.0); MEAN CORPUSCULAR VOLUME 91 fl (80-97); MONOCYTES % (AUTO) 13.1 % (3-13); RED BLOOD COUNT 3.44 10^6/uL (3.72-5.28); RED CELL DISTRIBUTION WIDTH 14.1 % (11.5-14.0); SEGMENTED NEUTROPHILS % (AUTO) 60.1 % (42-78)
[2017-03-21 09:08] LABS: ALANINE AMINOTRANSFERASE 30 U/L (9-52); ALBUMIN 3.7 g/dL (3.5-5.0); ALKALINE PHOSPHATASE 87 U/L (38-126); ANION GAP 8 (5-19); ASPARTATE AMINO TRANSFERASE 26 U/L (14-36); BILIRUBIN,DIRECT 0.4 mg/dL (0.0-0.4); BILIRUBIN,TOTAL 0.4 mg/dL (0.2-1.3); BLOOD UREA NITROGEN 40 mg/dL (7-20); CALCIUM 9.1 mg/dL (8.4-10.2); CARBON DIOXIDE 27 mmol/L (22-30); CHLORIDE 104 mmol/L (98-107); CREATINE KINASE 134 U/L (30-135); CREATININE RESULT 2.38 mg/dL (0.52-1.25); GLUCOSE 92 mg/dL (75-110); POTASSIUM 4.5 mmol/L (3.6-5.0); SODIUM 138.6 mmol/L (137-145); TOTAL PROTEIN 5.9 g/dL (6.3-8.2)
[2017-03-21 09:19] LABS: CREATINE KINASE MB 1.96 ng/mL (<4.55); TROPONIN I 0.022 ng/mL
--- NOTE | 2017-03-21 09:40 | RADIOLOGY REPORT (SQ) ---
EXAM DESCRIPTION: CHEST SINGLE VIEW COMPLETED DATE/TIME: 03/21/2017 9:02 am REASON FOR STUDY: sob COMPARISON: CT chest 10/21/2016 Two-view chest 10/05/2016 EXAM PARAMETERS: NUMBER OF VIEWS: One view. TECHNIQUE: Single frontal radiographic view of the chest acquired. RADIATION DOSE: NA LIMITATIONS: None. FINDINGS: LUNGS AND PLEURA: No opacities, masses or pneumothorax. No pleural effusion. MEDIASTINUM AND HILAR STRUCTURES: No masses. Contour normal. HEART AND VASCULAR STRUCTURES: Stable cardiomegaly BONES: No acute findings. HARDWARE: None in the chest. OTHER: No other significant finding. IMPRESSION: Stable cardiomegaly. No acute infiltrates TECHNICAL DOCUMENTATION: JOB ID: [id number]
[2017-03-21 09:44] LABS: APPEARANCE,URINE CLEAR; BILIRUBIN,URINE NEGATIVE (NEGATIVE); GLUCOSE, URINE NEGATIVE (NEGATIVE); KETONES,URINE NEGATIVE (NEGATIVE); LEUKOCYTE ESTERASE,URINE NEGATIVE (NEGATIVE); NITRITE,URINE NEGATIVE (NEGATIVE); PROTEIN,URINE NEGATIVE (NEGATIVE); URINE SPECIFIC GRAVITY 1.003; UROBILINOGEN,URINE NEGATIVE mg/dL (<2.0)
--- NOTE | 2017-03-21 09:44 | RADIOLOGY REPORT (SQ) ---
EXAM DESCRIPTION: SOFT TISSUE NECK COMPLETED DATE/TIME: 03/21/2017 9:14 am REASON FOR STUDY: stridor? COMPARISON: None. NUMBER OF VIEWS: Two views. TECHNIQUE: AP and lateral radiographic image of the soft tissues of the neck. LIMITATIONS: Positioning. FINDINGS: EPIGLOTTIS: Normal. Contour normal. Aryepiglottic folds normal. PREVERTEBRAL SOFT TISSUES: Normal. No soft tissue swelling. SUBGLOTTIC AREA: Normal. No narrowing. RETROPHARYNGEAL SPACE: Normal. No soft tissue masses. BONES: No significant findings. LUNG APICES: Normal. OTHER: No radiopaque foreign body. No other significant finding. IMPRESSION: NEGATIVE STUDY OF THE SOFT TISSUES OF THE NECK. TECHNICAL DOCUMENTATION: JOB ID: [id number] [employer]- All Rights Reserved
--- NOTE | 2017-03-21 10:01 | ER Document Report ---
ED General - General Chief Complaint: Breathing Difficulty Stated Complaint: DIFFICULTY BREATHING Time Seen by Provider: 03/21/17 08:09 Mode of Arrival: Ambulatory Information source: Patient Notes: 82-year-old female presents with complaints of shortness of breath. Patient notes symptoms have been ongoing intermittently for months denies any fevers or chills denies any nausea vomiting or diarrhea TRAVEL OUTSIDE OF THE [place] IN LAST 30 DAYS: No - HPI Onset: Other Onset/Duration: Intermittent Quality of pain: No pain Severity: Mild Pain Level: 1 Associated symptoms: Shortness of breath Exacerbated by: Denies Relieved by: Denies Similar symptoms previously: Yes Recently seen / treated by doctor: Yes - Related Data Allergies/Adverse Reactions: Sulfa (Sulfonamide Antibiotics) Allergy (Intermediate, Verified 03/21/17 07:53) Generalized Itching morphine [Morphine] Adverse Reaction (Intermediate, Verified 03/21/17 07:53) Severe Nausea Past Medical History - Social History Smoking Status: Former Smoker Cigarette use (# per day): No Chew tobacco use (# tins/day): No Smoking Education Provided: No Frequency of alcohol use: None Drug Abuse: None Family History: CAD, Hypertension Patient has suicidal ideation: No - Past Medical History Cardiac Medical History: Reports: Hx Congestive Heart Failure, Hx Coronary Artery Disease, Hx Hypertension - medicated Pulmonary Medical History: Reports: Hx Bronchitis, Hx Sleep Apnea Neurological Medical History: Denies: Hx Seizures Endocrine Medical History: Reports: Hx Hypothyroidism Renal/ Medical History: Reports: Hx End Stage Renal Disease - Stage IV, no plan for dialysis, Hx Renal Insufficiency. Denies: Hx Peritoneal Dialysis Malignancy Medical History: Reports: Hx Skin Cancer - Squamous cell GI Medical History: Reports: Hx Diverticulitis, Hx Gastritis, Hx Gastroesophageal Reflux Disease - With hiatal hernia, Hx Colonoscopy, Hx Endoscopy Musculoskeltal Medical History: Reports Hx Arthritis, Reports Hx Musculoskeletal Deformity, Reports Hx Musculoskeletal Trauma Past Surgical History: Reports: Hx Appendectomy, Hx Cholecystectomy, Hx Hysterectomy, Hx Orthopedic Surgery - stas tkr x 2 , foot , hand, carpal tunnel surgery of the right wrist, Hx Pancreatic Surgery, Hx Thyroid Surgery, Hx Tonsillectomy, Other - EGD, hemorrhoidectomy, colonoscopy, cataract extraction - Immunizations Hx Diphtheria, Pertussis, Tetanus Vaccination: No Hx Pneumococcal Vaccination: 03/20/10 Review of Systems - Review of Systems Notes: REVIEW OF SYSTEMS: CONSTITUTIONAL : Denies fever, chills, or sweats. Denies recent illness. EENT: Denies eye, ear, throat, or mouth pain or symptoms. Denies nasal or sinus congestion or discharge. Denies throat, tongue, or mouth swelling or difficulty swallowing. CARDIOVASCULAR: Denies chest pain. Denies palpitations or racing or irregular heart beat. Denies ankle edema. RESPIRATORY: Admits to shortness of breath GASTROINTESTINAL: Denies abdominal pain or distention. Denies nausea, vomiting , or diarrhea. Denies blood in vomitus, stools, or per rectum. Denies black, tarry stools. Denies constipation. GENITOURINARY: Denies difficulty urinating, painful urination, burning, frequency, blood in urine, or discharge. FEMALE GENITOURINARY: Denies vaginal bleeding, heavy or abnormal periods, irregular periods. Denies vaginal discharge or odor. MUSCULOSKELETAL: Denies back or neck pain or stiffness. Denies joint pain or swelling. SKIN: Denies rash, lesions or sores. HEMATOLOGIC : Denies easy bruising or bleeding. LYMPHATIC: Denies swollen, enlarged glands. NEUROLOGICAL: Denies confusion or altered mental status. Denies passing out or loss of consciousness. Denies dizziness or lightheadedness. Denies headache. Denies weakness or paralysis or loss of use of either side. Denies problems with gait or speech. Denies sensory loss, numbness, or tingling. Denies seizures. PSYCHIATRIC: Denies anxiety or stress. Denies depression, suicidal ideation, or homicidal ideation. ALL OTHER SYSTEMS REVIEWED AND NEGATIVE. PHYSICAL EXAMINATION: GENERAL: Well-appearing, well-nourished and in no acute distress. HEAD: Atraumatic, normocephalic. EYES: Pupils equal round and reactive to light, extraocular movements intact, conjunctiva are normal. ENT: End expiratory stridor NECK: Normal range of motion, supple without lymphadenopathy LUNGS: Breath sounds clear to auscultation bilaterally and equal. No wheezes rales or rhonchi. HEART: Regular rate and rhythm without murmurs ABDOMEN: Soft, nontender, nondistended abdomen. No guarding, no rebound. No masses appreciated. Female : deferred Musculoskeletal: Normal range of motion, no pitting or edema. No cyanosis. NEUROLOGICAL: Cranial nerves grossly intact. Normal speech, normal gait. Normal sensory, motor exams PSYCH: Normal mood, normal affect. SKIN: Warm, Dry, normal turgor, no rashes or lesions noted. 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 I have reevaluated this patient multiple times and no significant life threatening changes are noted. The patient and I have discussed the diagnosis and risks, and we agree with discharging home with close follow-up. We also discussed returning to the Emergency Department immediately if new or worsening symptoms occur. We have discussed the symptoms which are most concerning (e.g., changing or worsening pain, trouble swallowing or breathing, neck stiffness, fever) that necessitate immediate return. - Vital Signs Vital signs: Temp Pulse Resp BP Pulse Ox 16 116/63 99 03/21/17 10:21 03/21/17 10:21 03/21/17 10:21 - Laboratory Result Diagrams: 03/21/17 08:30 03/21/17 08:30 Laboratory results interpreted by me: 03/21/17 03/21/17 03/21/17 08:30 08:30 08:30 RBC 3.44 L Hgb 10.7 L Hct 31.3 L RDW 14.1 H Monocytes % 13.1 H BUN 40 H Creatinine 2.38 H Est GFR ( Amer) 24 L Est GFR (Non-Af Amer) 20 L NT-Pro-B Natriuret Pep 1770 H Total Protein 5.9 L - Diagnostic Test Radiology reviewed: Image reviewed, Reports reviewed - No acute abnormal Discharge - Discharge Clinical Impression: Chronic renal insufficiency, stage IV (severe) Dyspnea Qualifiers: Dyspnea type: unspecified Qualified Code(s): R06.00 - Dyspnea, unspecified Condition: Stable Disposition: HOME, SELF-CARE Instructions: Dyspnea, Nonspecific ([facility]) Referrals: TIERA LUGO MD [Primary Care Provider] - Follow up tomorrow
[2017-03-21 10:32] VITALS: BP 116/63
--- NOTE | 2017-03-21 14:33 | EKG REPORT ---
SEVERITY:- ABNORMAL ECG - SINUS RHYTHM PROBABLE ANTEROLATERAL INFARCT, OLD : Confirmed by: Crystal Castle MD 21-Mar-2017 14:32:11
== END 2017-03-21 10:31 | disposition home or self-care (01) ==
LOC: ER 07:50
DX: N18.6 End stage renal disease (principal); I12.0 Hypertensive chronic kidney disease with stage 5 chronic kidney disease or end stage renal disease; R06.00 Dyspnea, unspecified; R06.02 Shortness of breath; I50.9 Heart failure, unspecified; I25.10 Atherosclerotic heart disease of native coronary artery without angina pectoris; I11.0 Hypertensive heart disease with heart failure; Z88.6 Allergy status to analgesic agent; Z88.2 Allergy status to sulfonamides; Z90.710 Acquired absence of both cervix and uterus
CPT/HCPCS: 93005; 94640 ×2; 99285; 36415; 87040; 82553; 82550; 85025; 80053; 81001; 84484; 83880; 71010; 70360; 93010; A9270; J7620

== ENCOUNTER 2017-04-01 09:08 | Emergency (ER) | payer MEDICARE, OTHER ==
[2017-04-01] MEDS ORDERED: ONDANSETRON HCL INJ/PF 4 MG/2 ML SDV IV ONE (10:02)
--- NOTE | 2017-04-01 10:03 | ER Document Report ---
ED Medical Screen (RME) - General Chief Complaint: Vomiting/Diarrhea Stated Complaint: VOMITING Time Seen by Provider: 04/01/17 10:02 Mode of Arrival: Ambulatory Information source: Patient Notes: Patient reports today with complaints of diarrhea despite usually being constipated. Patient states she has had associated abdominal pain with nausea and vomiting. Patient states she has a history of pancreatitis and diverticulitis. Patient states "her heart beats so hard her bellybutton hurts". TRAVEL OUTSIDE OF THE [place] IN LAST 30 DAYS: No - Related Data Allergies/Adverse Reactions: Sulfa (Sulfonamide Antibiotics) Allergy (Intermediate, Verified 04/01/17 09:24) Generalized Itching morphine [Morphine] Adverse Reaction (Intermediate, Verified 04/01/17 09:24) Severe Nausea Past Medical History - Past Medical History Cardiac Medical History: Reports: Hx Congestive Heart Failure, Hx Coronary Artery Disease, Hx Hypertension - medicated Pulmonary Medical History: Reports: Hx Bronchitis, Hx Sleep Apnea Endocrine Medical History: Reports: Hx Hypothyroidism Renal/ Medical History: Reports: Hx End Stage Renal Disease - Stage IV, no plan for dialysis, Hx Renal Insufficiency Malignancy Medical History: Reports: Hx Skin Cancer - Squamous cell GI Medical History: Reports: Hx Diverticulitis, Hx Gastritis, Hx Gastroesophageal Reflux Disease - With hiatal hernia, Hx Colonoscopy, Hx Endoscopy Musculoskeltal Medical History: Reports Hx Arthritis, Reports Hx Musculoskeletal Deformity, Reports Hx Musculoskeletal Trauma Past Surgical History: Reports: Hx Appendectomy, Hx Cholecystectomy, Hx Hysterectomy, Hx Orthopedic Surgery - stas tkr x 2 , foot , hand, carpal tunnel surgery of the right wrist, Hx Pancreatic Surgery, Hx Thyroid Surgery, Hx Tonsillectomy, Other - EGD, hemorrhoidectomy, colonoscopy, cataract extraction - Immunizations Hx Diphtheria, Pertussis, Tetanus Vaccination: No Review of Systems - Review of Systems Gastrointestinal: See HPI, Abdominal pain, Diarrhea, Nausea, Vomiting Physical Exam - Vital signs Vitals: Temp Pulse Resp BP Pulse Ox 98.2 F 73 18 129/65 H 97 04/01/17 09:28 04/01/17 09:28 04/01/17 09:28 04/01/17 09:28 04/01/17 09:28 - Notes Notes: Physical Exam: General: Alert, appears well. HEENT: Normocephalic. Atraumatic. PERRLA. Extraocular movements intact. Oropharynx clear. Neck: Supple. Respiratory: No respiratory distress. Abdominal: Bilateral lower quadrant tenderness with palpation, no epigastric tenderness with palpation, no distension. Extremities: Moves all four extremities. Neurological: Normal cognition. AAOx4. Normal speech. Psychological: Normal affect. Normal Mood. Skin: Warm. Dry. Normal color. Course - Vital Signs Vital signs: Temp Pulse Resp BP Pulse Ox 98.2 F 73 18 129/65 H 97 04/01/17 09:28 04/01/17 09:28 04/01/17 09:28 04/01/17 09:28 04/01/17 09:28 Scribe Documentation - Scribe Written by Keithe:: Ben Watts, 04/01/2017 1024 acting as scribe for :: Dino
[2017-04-01] MEDS ORDERED: NORMAL SALINE 1000 ML 500 ML IV ONE (10:04)
[2017-04-01 10:38] LABS: HEMOGLOBIN 11.8 g/dL (12.0-15.5); HGB HCT DIFFERENCE 0.4; MEAN CORPUSCULAR HEMOGLOBIN 30.6 pg (27.0-33.4); MEAN CORPUSCULAR HGB CONC 33.6 g/dL (32.0-36.0); MEAN CORPUSCULAR VOLUME 91 fl (80-97); RED BLOOD COUNT 3.86 10^6/uL (3.72-5.28); RED CELL DISTRIBUTION WIDTH 14.2 % (11.5-14.0)
--- NOTE | 2017-04-01 10:40 | RADIOLOGY REPORT (SQ) ---
EXAM DESCRIPTION: ABDOMEN 2 VIEWS COMPLETED DATE/TIME: 04/01/2017 10:30 am REASON FOR STUDY: nausea, vomiting, abd pain COMPARISON: None. NUMBER OF VIEWS: Two views. TECHNIQUE: Supine and erect/decubitus radiographic images of the abdomen acquired. LIMITATIONS: None. FINDINGS: FREE AIR: None. No abnormal gas collections. LUNG BASES: Clear. BOWEL GAS PATTERN: Few scattered small bowel loops with air fluid levels. No distended large or small bowel loops. CALCIFICATIONS: No suspicious calcifications. SOFT TISSUES: No gross mass or suggestion of organomegaly. HARDWARE: Right upper quadrant clips. BONES: No acute fracture. No worrisome bone lesions. OTHER: No other significant finding. IMPRESSION: NON-SPECIFIC BOWEL GAS PATTERN WITHOUT EVIDENCE FOR OBSTRUCTION. TECHNICAL DOCUMENTATION: JOB ID: [id number] [employer]- All Rights Reserved
[2017-04-01 10:49] LABS: ALANINE AMINOTRANSFERASE 28 U/L (9-52); ALBUMIN 4.3 g/dL (3.5-5.0); ALKALINE PHOSPHATASE 76 U/L (38-126); ANION GAP 11 (5-19); ASPARTATE AMINO TRANSFERASE 26 U/L (14-36); BILIRUBIN,DIRECT 0.5 mg/dL (0.0-0.4); BILIRUBIN,TOTAL 0.8 mg/dL (0.2-1.3); BLOOD UREA NITROGEN 51 mg/dL (7-20); CALCIUM 9.4 mg/dL (8.4-10.2); CARBON DIOXIDE 23 mmol/L (22-30); CHLORIDE 106 mmol/L (98-107); CREATININE RESULT 2.45 mg/dL (0.52-1.25); GLUCOSE 107 mg/dL (75-110); LIPASE 320.6 U/L (23-300); POTASSIUM 4.3 mmol/L (3.6-5.0); TOTAL PROTEIN 6.8 g/dL (6.3-8.2)
[2017-04-01 10:54] LABS: BAND NEUTROPHILS % (MANUAL) 2 % (3-5); BASOPHILS % (MANUAL) 0 % (0-2); EOSINOPHILS % (MANUAL) 0 % (0-6); LYMPHOCYTES % (MANUAL) 18 % (13-45); PLATELET CLUMPS PRESENT; POLYCHROMASIA SLIGHT; TOTAL CELLS COUNTED 100; TOXIC GRANULATION 1+; TOXIC VACUOLATION PRESENT
[2017-04-01 10:55] LABS: APPEARANCE,URINE CLEAR; BILIRUBIN,URINE NEGATIVE (NEGATIVE); GLUCOSE, URINE NEGATIVE (NEGATIVE); KETONES,URINE NEGATIVE (NEGATIVE); LEUKOCYTE ESTERASE,URINE NEGATIVE (NEGATIVE); NITRITE,URINE NEGATIVE (NEGATIVE); PROTEIN,URINE NEGATIVE (NEGATIVE); URINE SPECIFIC GRAVITY 1.014; UROBILINOGEN,URINE NEGATIVE mg/dL (<2.0)
--- NOTE | 2017-04-01 11:21 | ER Document Report ---
ED GI/ - General Chief Complaint: Vomiting/Diarrhea Stated Complaint: VOMITING Time Seen by Provider: 04/01/17 10:02 Mode of Arrival: Ambulatory Notes: Patient says that she has been vomiting for the past 2 days and had diarrhea for the past 4 days. She has had about 6 stools a day, but has not seen any blood in the bowel movements. Patient usually has problems with constipation so this is more than unusual for her. She says that her abdomen hurts all around her bellybutton and all over. She also is having some chest pains for the past 2 weeks. Patient was seen here a couple of weeks ago and given a couple of nebulizer treatments and followed up by her primary care doctor and was prescribed a home nebulizer and doxycycline for a week, which she has been taking. Patient says she has not had a fever, but she never runs a temperature more than 96. Has been told she has kidney stones. Has had a cough and felt some shortness of breath. Non-smoker. Patient says she feels her heart pounding very hard. TRAVEL OUTSIDE OF THE [place] IN LAST 30 DAYS: No - Related Data Allergies/Adverse Reactions: Sulfa (Sulfonamide Antibiotics) Allergy (Intermediate, Verified 04/01/17 09:24) Generalized Itching morphine [Morphine] Adverse Reaction (Intermediate, Verified 04/01/17 09:24) Severe Nausea Past Medical History - General Information source: Patient - Social History Smoking Status: Never Smoker Chew tobacco use (# tins/day): No Frequency of alcohol use: None Drug Abuse: None Family History: Reviewed & Not Pertinent, CAD, Hypertension Patient has suicidal ideation: No Patient has homicidal ideation: No - Past Medical History Cardiac Medical History: Reports: Hx Congestive Heart Failure, Hx Coronary Artery Disease, Hx Hypertension - medicated Pulmonary Medical History: Reports: Hx Bronchitis, Hx Sleep Apnea Endocrine Medical History: Reports: Hx Hypothyroidism Renal/ Medical History: Reports: Hx End Stage Renal Disease - Stage IV, no plan for dialysis, Hx Renal Insufficiency Malignancy Medical History: Reports: Hx Skin Cancer - Squamous cell GI Medical History: Reports: Hx Diverticulitis, Hx Gastritis, Hx Gastroesophageal Reflux Disease - With hiatal hernia, Hx Colonoscopy, Hx Endoscopy Musculoskeltal Medical History: Reports Hx Arthritis, Reports Hx Musculoskeletal Deformity, Reports Hx Musculoskeletal Trauma Past Surgical History: Reports: Hx Appendectomy, Hx Cholecystectomy, Hx Hysterectomy, Hx Orthopedic Surgery - stas tkr x 2 , foot , hand, carpal tunnel surgery of the right wrist, Hx Pancreatic Surgery, Hx Thyroid Surgery, Hx Tonsillectomy, Other - EGD, hemorrhoidectomy, colonoscopy, cataract extraction - Immunizations Hx Diphtheria, Pertussis, Tetanus Vaccination: No Hx Pneumococcal Vaccination: 03/20/10 Review of Systems - Review of Systems Notes: REVIEW OF SYSTEMS: CONSTITUTIONAL : Denies fever. Says her normal temperature is 96. EENT: Denies eye, ear, nose or mouth or throat pain or other symptoms. CARDIOVASCULAR: Has had some intermittent chest pains for the past 2 weeks. RESPIRATORY: Has had some cough, chest congestion, or shortness of breath. GASTROINTESTINAL: See HPI. GENITOURINARY: Denies difficulty or painful urinating, urinary frequency, blood in urine. MUSCULOSKELETAL: Denies back or neck pain. Denies joint pain or swelling. SKIN: Denies rash or skin lesions. NEUROLOGICAL: Denies LOC or altered mental status. Denies headache. Denies sensory loss or motor deficits. ALL OTHER SYSTEMS REVIEWED AND NEGATIVE. Physical Exam - Vital signs Vitals: Temp Pulse Resp BP Pulse Ox 98.2 F 73 18 129/65 H 97 04/01/17 09:28 04/01/17 09:28 04/01/17 09:28 04/01/17 09:28 04/01/17 09:28 Interpretation: Normal - Notes Notes: PHYSICAL EXAMINATION: GENERAL: Well-appearing, in no acute distress. All vital signs are normal. HEAD: Atraumatic, normocephalic. EYES: Pupils equal round and reactive to light, extraocular movements intact. ENT: oropharynx clear without exudates. Moist mucous membranes. NECK: Normal range of motion, supple. LUNGS: Breath sounds clear and equal bilaterally. HEART: Regular rate and rhythm with grade 2/6 systolic murmur. Patient says she knows about the murmur.. ABDOMEN: Soft, nontender. No guarding or rebound. No masses. No bruits heard. BACK: No tenderness throughout entire back. EXTREMITIES: Normal range of motion without pain. NEUROLOGICAL: Normal speech, normal gait. Normal sensory, motor, and reflex exams. Awake, alert, and oriented x3. Cranial nerves normal. PSYCH: Normal mood, normal affect. SKIN: Warm, dry, no rashes. Course - Re-evaluation Re-evalutation: 04/01/17 15:[address] scan is essentially normal. Patient is complaining of burning in her abdomen. Has not taken any antacids on giving her a dose of Maalox. She just got us a stool specimen so we are sending that off for culture and for C. difficile testing. I have advised the patient to stop taking the remaining 1 day of doxycycline. Will prescribe an antiemetic for the patient. Follow-up with her primary care in a couple of days, Tuesday, if not better. - Vital Signs Vital signs: Temp Pulse Resp BP Pulse Ox 98.2 F 67 15 150/70 H 97 04/01/17 09:28 04/01/17 13:10 04/01/17 13:10 04/01/17 13:10 04/01/17 13:10 - Laboratory Result Diagrams: 04/01/17 10:14 04/01/17 10:14 Laboratory results interpreted by me: 04/01/17 04/01/17 04/01/17 10:14 10:14 10:39 Hgb 11.8 L Hct 35.0 L RDW 14.2 H Band Neutrophils % 2 L BUN 51 H Creatinine 2.45 H Est GFR ( Amer) 23 L Est GFR (Non-Af Amer) 19 L Direct Bilirubin 0.5 H Lipase 320.6 H Urine Blood SMALL H - Diagnostic Test Radiology results interpreted by me: 04/01/17 11:21 2 view abdominal x-rays normal. No evidence of obstruction. - EKG Interpretation by Me EKG shows normal: Sinus rhythm Rate: Normal Rhythm: NSR, PVC's Additional EKG results interpreted by me: 04/01/17 11:22 EKG shows possible old anterior AL and old lateral AL, but no acute changes. Discharge - Discharge Clinical Impression: Vomiting and diarrhea, Abdominal pain Condition: Stable Disposition: HOME, SELF-CARE Additional Instructions: VOMITING: Vomiting (or nausea without vomiting) can be caused by many other different problems. It can mean that something's wrong with the stomach, such as ulcers or inflammation or the intestinal tract, such as appendicitis. But it can also be a symptom of a problem that has nothing to do with the stomach or intestines. Vomiting is common with severe headaches, earaches, tonsillitis, and kidney infections, etc. We see it with pneumonia or heart attacks. Drugs can cause nausea and vomiting. Many abdominal problems cause vomiting; for example, gallstones, kidney stones, pancreatitis, and intestinal obstruction ( blocked bowels). In most cases, curing the vomiting depends on fixing the problem that caused it. For temporary relief, we may use an anti-nausea medicine. For home use, we can prescribe suppositories, chewable pills, pills that dissolve in the mouth, or liquid anti-nausea drugs. If the vomiting seems to be caused by a problem in the stomach, acid-suppressing drugs may be prescribed as well. It's important to avoid dehydration. Sip small amounts of clear liquids ( soft drinks, tea, broth, etc) . Try to take fluids frequently even if you are vomiting to prevent dehydration. Take increasing amounts of fluid and when liquids are being consumed successfully, advance to small amounts of bland food (toast, soups, mashed potatoes, etc.) until you are able to resume a regular diet. Avoid aspirin, tobacco, and alcohol. If the vomiting worsens, if the problem that's making you vomit worsens, or if there's evidence of bleeding in the stomach (such as black, tarry stool, or bloody or black vomit), you should return immediately. Also, return if abdominal pain worsens or becomes localized to one area or you develop high fever. Call your doctor if you aren't improved in 24 hours. DIARRHEA, NON-SPECIFIC: Diarrhea means frequent, watery stools. There are many causes. Any problem that keeps the intestinal tract from absorbing water from the stool can lead to diarrhea. A sudden new diarrhea problem is usually caused by a virus, food sensitivity, toxic bacteria, or drugs. In this case, we expect the problem to go away soon. Testing is done only if you seem seriously ill from the diarrhea. If you have chronic diarrhea, or diarrhea that keeps coming back, we need to find out why. Chronic diarrhea can be due to inflammation of the bowels such as Crohn's disease or ulcerative colitis, food sensitivity such as intolerance to lactose or wheat protein, irritable bowel syndrome, and other problems. If your diarrhea is a significant problem but it's not clear why you have it, we' ll refer you to a specialist for further testing. During an episode of diarrhea, drink small amounts (two to six ounces) of clear liquids (soft drinks, sport drinks, herb teas, broth, etc). Take fluids frequently to prevent dehydration. It's usually not a problem to take mild anti- diarrhea medication such as Kaopectate or Pepto-Bismol. As the diarrhea eases, advance to small amounts of bland food (mashed potato, toast) for 24 hours. Call the physician if blood appears in your vomit or stool, if vomiting lasts longer than 24 hours, if the abdominal pain worsens or becomes localized to one area, if you develop high fever, or if you become lightheaded and weak. VIRAL SYNDROME: The physician has diagnosed a viral infection. Viruses not only cause "colds," but can cause many different symptoms including generalized aching, fever, headache, cough, diarrhea, nausea, vomiting, and fatigue. The treatment, for the most part, is simply relief of symptoms. This means that antibiotics are usually not given. Rest, fluids, pain medications and, occasionally, medication for the specific symptoms that are most bothersome will be prescribed. Use good handwashing to avoid passing the virus to others. Shared toys should be cleaned with disinfectant. Clean the toilets, sinks, and counter surfaces in bathrooms. Launder clothing in hot water. Contact the physician if you develop any new or unusual symptoms such as severe headache, stiff neck, high fever, chest pain, productive cough, or shortness of breath. You should be rechecked if you don't see marked improvement within seven to 10 days. INTRAVENOUS (I V) FLUIDS: As part of your care today, you received intravenous (IV) fluids. IV fluids are administered to patients who are dehydrated or to those who have certain chemical (electrolyte) abnormalities that need correcting. ANTINAUSEA MEDICATION: You have been given a medication to suppress nausea and vomiting. This type of medication can be given as a shot, pill, or suppository. It will usually last for many hours. Pills and shots usually last six to eight hours. For the typical illness, only one or two doses of the medication may be necessary. Mild lightheadedness may occur. This type of medicine can cause drowsiness. Do not drive or operate dangerous machinery while under its influence. Do not mix with alcohol. See your doctor at once if you have muscle spasms or tightness, or uncontrollable motions (particularly of the neck, mouth, or jaw). Persistent vomiting or severe lightheadedness should also be evaluated by the physician. Antacid Therapy You have been instructed to start antacid therapy. Antacids directly neutralize stomach acid. This is useful for acid irritation of the esophagus, gastritis, and ulcers. You should take two tablespoons of antacid one hour after each meal and three hours after each meal. If you are not eating, take the antacid every two hours. If you are using a concentrate (such as Maalox TC), use only one tablespoon. Many antacids affect the bowels. The most common problem is diarrhea. In this case, a pure aluminum hydroxide antacid (such as AlternaGel) can be substituted for some or all doses. If the problem is constipation, add a teaspoon of Milk of Magnesia to each dose. Call the doctor if you experience continued diarrhea or constipation, or if you develop lightheadedness, bloody stool or vomitus, severe abdominal pain, or black stool. Keep taking your Protonix. Also take [id number] Tums or Rolaids or Maalox. Stop taking the remaining doxycycline pills that you have. FOLLOW-UP CARE: If you have been referred to a physician for follow-up care, call the physician s office for an appointment as you were instructed or within the next two days. If you experience worsening or a significant change in your symptoms, notify the physician immediately or return to the Emergency Department at any time for re-evaluation. Prescriptions: Ondansetron [Zofran Odt 4 mg Tablet] 1 - 2 tab PO Q4H PRN #12 tab.rapdis PRN Reason: For Nausea/Vomiting Referrals: TIERA LUGO MD [Primary Care Provider] - Follow up in 3-5 days
--- NOTE | 2017-04-01 12:19 | RADIOLOGY REPORT (SQ) ---
EXAM DESCRIPTION: CHEST SINGLE VIEW COMPLETED DATE/TIME: 04/01/2017 11:58 am REASON FOR STUDY: Chest pain COMPARISON: 03/21/2017 EXAM PARAMETERS: NUMBER OF VIEWS: One view. TECHNIQUE: Single frontal radiographic view of the chest acquired. RADIATION DOSE: NA LIMITATIONS: None. FINDINGS: LUNGS AND PLEURA: No opacities, masses or pneumothorax. No pleural effusion. MEDIASTINUM AND HILAR STRUCTURES: No masses. Contour normal. HEART AND VASCULAR STRUCTURES: Heart normal in size. Normal vasculature. BONES: No acute findings. HARDWARE: None in the chest. OTHER: No other significant finding. IMPRESSION: NO ACUTE RADIOGRAPHIC FINDING IN THE CHEST. TECHNICAL DOCUMENTATION: JOB ID: [id number]
--- NOTE | 2017-04-01 12:55 | EKG REPORT ---
SEVERITY:- ABNORMAL ECG - SINUS RHYTHM MULTIPLE VENTRICULAR PREMATURE COMPLEXES INFERIOR INFARCT, AGE INDETERMINATE PROBABLE LATERAL INFARCT, OLD : Confirmed by: Lloyd Lockwood MD 01-Apr-2017 12:55:14
--- NOTE | 2017-04-01 15:00 | RADIOLOGY REPORT (SQ) ---
EXAM DESCRIPTION: CT ABD/PELVIS NO ORAL OR IV COMPLETED DATE/TIME: 04/01/2017 2:09 pm REASON FOR STUDY: Abdominal pain, vomiting, and diarrhea. COMPARISON: Abdominal ultrasound 07/08/2016 MRI lumbar spine 03/11/2016 CT abdomen pelvis 09/13/2015, 07/14/2015, 11/23/2014, 02/28/2014, 10/22/2011 TECHNIQUE: CT scan of the abdomen and pelvis performed without intravenous contrast. Patient drank oral contrast. Images reviewed with lung, soft tissue, and bone windows. Reconstructed coronal and s agittal MPR images reviewed. All images stored on PACS. All CT scanners at this facility use dose modulation, iterative reconstruction, and/or weight based d osing when appropriate to reduce radiation dose to as low as reasonably achievable (ALARA). [facility]: Dose Right [facility]: CareDose [facility]: Dose Right [facility]: Teradose 4D [facility]: [employer] RADIATION DOSE: Up-to-date CT equipment and radiation dose reduction techniques were employed. CTDIv ol: 17.1 mGy. DLP: 967 mGy-cm.mGy. LIMITATIONS: None. FINDINGS: LOWER CHEST: Small hiatal hernia. Heavily calcified aortic valve. Lung bases are free of focal infiltrates. NON-CONTRASTED LIVER, SPLEEN, ADRENALS: Evaluation limited by lack of IV contrast. No identified sign ificant masses. PANCREAS: No masses. No peripancreatic inflammatory changes. GALLBLADDER: Surgically absent RIGHT KIDNEY AND URETER: No suspicious masses. Assessment limited by lack of IV contrast. 2 cm right midpole renal cortical cyst. No significant calcifications. No hydronephrosis or hydroureter. LEFT KIDNEY AND URETER: No suspicious masses. Assessment limited by lack of IV contrast. 2 cm left m idpole renal cortical cyst. Tiny 2 mm left midpole intrarenal collecting system stone. No hydronep hrosis or hydroureter. AORTA AND RETROPERITONEUM: No aneurysm. No retroperitoneal masses or adenopathy. BOWEL AND PERITONEAL CAVITY: No obvious masses or inflammatory changes. No free fluid. Patient drank oral contrast. No CT evidence of bowel obstruction. APPENDIX: Surgically absent PELVIS, BLADDER, AND ABDOMINAL WALL:No abnormal masses. No free fluid. Bladder normal. Post hysterec anna. Large right femoral hernia containing mesenteric fat, best shown on coronal images 32-37, and axial images 80 through 92. BONES: No significant findings. OTHER: No other significant finding. IMPRESSION: Post cholecystectomy appendectomy and hysterectomy. No CT evidence bowel obstruction. COMMENT: Quality ID # [id number]: Final reports with documentation of one or more dose reduction techniques (e.g., Automated exposure control, adjustment of the mA and/or kV according to patient size, use of iterative reconstruction technique) TECHNICAL DOCUMENTATION: JOB ID: [id number] [employer]- All Rights Reserved
[2017-04-01] MEDS ORDERED: MAG HYDROX/AL HYDROX/SIMETH SUSP 30 ML UDCUP PO ONE (15:48)
[2017-04-01 16:48] VITALS: BP 142/74
== END 2017-04-01 16:47 | disposition home or self-care (01) ==
LOC: ER 09:08
DX: R11.10 Vomiting, unspecified (principal); R19.7 Diarrhea, unspecified; R10.9 Unspecified abdominal pain; I50.9 Heart failure, unspecified; I25.10 Atherosclerotic heart disease of native coronary artery without angina pectoris; I13.2 Hypertensive heart and chronic kidney disease with heart failure and with stage 5 chronic kidney disease, or end stage renal disease; I11.0 Hypertensive heart disease with heart failure; N18.6 End stage renal disease; Z88.2 Allergy status to sulfonamides; Z88.6 Allergy status to analgesic agent
CPT/HCPCS: 99285; 96361; 96374; 36415; 87045; 87205; 83690; 85025; 80053; 81001; 87493; 83605; 74020; 71010; 74176; 93005; 93010; J2405; J7030

== ENCOUNTER → 2017-06-21 | Outpatient (CLI) | payer MEDICARE, OTHER ==
[2017-06-21 08:07] LABS: ABSOLUTE EOSINOPHILS # (AUTO) 0.1 10^3/uL (0.0-0.6); ABSOLUTE LYMPHOCYTES (AUTO) 1.1 10^3/uL (0.5-4.7); ABSOLUTE MONOCYTES (AUTO) 0.7 10^3/uL (0.1-1.4); ABSOLUTE NEUT (AUTO) 3.6 10^3/uL (1.7-8.2); BASOPHILS % (AUTO) 0.8 % (0-2); EOSINOPHILS % (AUTO) 1.7 % (0-6); HEMATOCRIT 34.6 % (36.0-47.0); HEMOGLOBIN 11.2 g/dL (12.0-15.5); LYMPHOCYTES % (AUTO) 20.9 % (13-45); MEAN CORPUSCULAR HEMOGLOBIN 28.1 pg (27.0-33.4); MEAN CORPUSCULAR HGB CONC 32.5 g/dL (32.0-36.0); MEAN CORPUSCULAR VOLUME 87 fl (80-97); MONOCYTES % (AUTO) 11.9 % (3-13); PLATELET COUNT 208 10^3/uL (150-450); RED CELL DISTRIBUTION WIDTH 13.7 % (11.5-14.0); SEGMENTED NEUTROPHILS % (AUTO) 64.7 % (42-78); TOTAL CELLS COUNTED % (AUTO) 100 %; WHITE BLOOD COUNT 5.5 10^3/uL (4.0-10.5)
[2017-06-21 08:28] LABS: ANION GAP 13 (5-19); BLOOD UREA NITROGEN 32 mg/dL (7-20); CALCIUM 9.9 mg/dL (8.4-10.2); CARBON DIOXIDE 23 mmol/L (22-30); CHLORIDE 108 mmol/L (98-107); GLUCOSE 90 mg/dL (75-110); PHOSPHORUS 4.4 mg/dL (2.5-4.5); POTASSIUM 4.6 mmol/L (3.6-5.0)
== END ==
LOC: OD 07:08
PROVIDERS: ATTEND Internal Medicine Nephrology
DX: N18.4 Chronic kidney disease, stage 4 (severe) (principal); D63.1 Anemia in chronic kidney disease; E83.39 Other disorders of phosphorus metabolism
CPT/HCPCS: 36415; 80048; 84100; 85025

== ENCOUNTER 2017-08-16 08:20 | Outpatient (CLI) | payer MEDICARE, OTHER ==
[~2017-08-16 08:20] MED LIST: ACETAMINOPHEN 325 MG TABLET PO PRN; DIPHENHYDRAMINE HCL 50 MG/ML VIAL IV PRN; IRON DEXTRAN COMPLEX 25 MG in SYRINGE, DISPOSABLE, 1 EACH IV PRN; IRON DEXTRAN COMPLEX IV PRN; NORMAL SALINE 250 ML IV PRN; NORMAL SALINE IV PRN
[2017-08-16 08:43] VITALS: BP 152/56
== END 2017-08-16 16:03 | disposition home or self-care (01) ==
LOC: II 08:20 → 5TH 08:25 → II 16:03
PROVIDERS: ATTEND Internal Medicine
PROC: 3E033GC Introduction of Other Therapeutic Substance into Peripheral Vein, Percutaneous Approach (ICD-10-PCS; principal; 2017-08-16)
DX: D50.8 Other iron deficiency anemias (principal)
CPT/HCPCS: 96365; 96366; 96374; A9270; J1200; J1750; J7030; J3490; 96375

== ENCOUNTER → 2017-08-29 | Outpatient (CLI) | payer MEDICARE, OTHER ==
[2017-08-29 12:17] LABS: ABSOLUTE LYMPHOCYTES (AUTO) 1.1 10^3/uL (0.5-4.7); ABSOLUTE MONOCYTES (AUTO) 0.7 10^3/uL (0.1-1.4); ABSOLUTE NEUT (AUTO) 3.9 10^3/uL (1.7-8.2); BASOPHILS % (AUTO) 0.4 % (0-2); EOSINOPHILS % (AUTO) 15.2 % (0-6); HEMATOCRIT 30.8 % (36.0-47.0); MEAN CORPUSCULAR HEMOGLOBIN 28.1 pg (27.0-33.4); MEAN CORPUSCULAR HGB CONC 32.6 g/dL (32.0-36.0); MEAN CORPUSCULAR VOLUME 86 fl (80-97); MONOCYTES % (AUTO) 9.9 % (3-13); PLATELET COUNT 188 10^3/uL (150-450); RED BLOOD COUNT 3.57 10^6/uL (3.72-5.28); RED CELL DISTRIBUTION WIDTH 20.2 % (11.5-14.0); SEGMENTED NEUTROPHILS % (AUTO) 58.5 % (42-78); TOTAL CELLS COUNTED % (AUTO) 100 %; WHITE BLOOD COUNT 6.7 10^3/uL (4.0-10.5)
[2017-08-29 12:58] LABS: ERYTHROCYTE SEDIMENTATION RATE 22 mm/hr (0-30)
== END ==
LOC: OD 11:11
PROVIDERS: ATTEND Ophthalmology
DX: G44.89 Other headache syndrome (principal)
CPT/HCPCS: 36415; 85025; 85652; 86140

== ENCOUNTER → 2017-08-31 | Outpatient (CLI) | payer MEDICARE, OTHER ==
--- NOTE | 2017-08-31 16:19 | RADIOLOGY REPORT (SQ) ---
EXAM DESCRIPTION: MRI HEAD WITHOUT COMPLETED DATE/TIME: 08/31/2017 3:59 pm REASON FOR STUDY: HEADACHE R51 HEADACHE COMPARISON: Brain CT scan dated December 2016 and MRI of the brain dated December 2014 TECHNIQUE: Multiplanar imaging includes non-contrasted T1, T2, FLAIR, and diffusion with ADC map seq uences. Images stored on PACS. LIMITATIONS: None. FINDINGS: ANATOMY: No anomalies. Normal vascular flow voids. Pituitary fossa normal. CSF SPACES: Atrophy induced prominence of ventricles and CSF spaces. CEREBRUM: High signal intensity lesions scattered throughout the white matter on FLAIR imaging with d istribution suggesting micro-vascular ischemic changes. No evidence of hemorrhage, mass, or extraaxi al fluid collection. POSTERIOR FOSSA: No signal alteration. No hemorrhage. No edema, masses or mass effect. Internal tata tory canals, cerebello-pontine angles, mastoids normal. DIFFUSION IMAGING: Negative for acute or sub-acute infarction. ORBITS: No masses. Globes normal. PARANASAL SINUSES: No fluid levels. Mucosa normal. OTHER: There is some apparent enlargement of the pituitary gland measuring 12 x 10.6 mm in diameters with extension into the suprasellar cistern and is in close proximity to the optic chiasm. A dedicat ed MRI of the pituitary gland may be of value for further evaluation. IMPRESSION: ATROPHY AND CHRONIC MICRO-VASCULAR ISCHEMIC CHANGES. Apparent enlargement of the pituit joel gland as noted above and a dedicated MRI of the pituitary gland may be of value for further evalu ation. Other findings as noted above. EVIDENCE OF ACUTE STROKE: NO. TECHNICAL DOCUMENTATION: JOB ID: [id number] [employer]- All Rights Reserved Reading location - IP/workstation name: [email or web address]
== END ==
LOC: RAD 14:17
PROVIDERS: ATTEND Internal Medicine Hematology & Oncology
DX: R51 Headache (principal); G31.9 Degenerative disease of nervous system, unspecified; R93.0 Abnormal findings on diagnostic imaging of skull and head, not elsewhere classified
CPT/HCPCS: 70551; 82565

== ENCOUNTER 2017-09-12 10:13 | Emergency (ER) | payer MEDICARE, OTHER ==
--- NOTE | 2017-09-12 11:15 | ER Document Report ---
ED Medical Screen (RME) - General Chief Complaint: Numbness of Arm Stated Complaint: RIGHT SIDE WEAKNESS, CHEST PAIN Time Seen by Provider: 09/12/17 11:14 Notes: Patient has multiple complaints. She states she is having right sided neck and head pain. She states she had an MRI for this pain a week ago and she was told it was normal. She states is also been having some right-sided numbness intermittently for 1 week. She states she had some this morning but does not have it right now. She also states she is felt constipated. She states that she also believes she may need a blood transfusion because she used to get them all the time and has not had one in a year. She also states that she is weak and can hardly walk around. TRAVEL OUTSIDE OF THE [place] IN LAST 30 DAYS: No - Related Data Allergies/Adverse Reactions: Sulfa (Sulfonamide Antibiotics) Allergy (Intermediate, Verified 09/12/17 10:14) Generalized Itching morphine [Morphine] Adverse Reaction (Intermediate, Verified 09/12/17 10:14) Severe Nausea Past Medical History - Social History Frequency of alcohol use: None Drug Abuse: None - Past Medical History Cardiac Medical History: Reports: Hx Congestive Heart Failure, Hx Coronary Artery Disease, Hx Hypertension - medicated Pulmonary Medical History: Reports: Hx Bronchitis, Hx Sleep Apnea Neurological Medical History: Denies: Hx Seizures Endocrine Medical History: Reports: Hx Hypothyroidism Renal/ Medical History: Reports: Hx End Stage Renal Disease - Stage IV, no plan for dialysis, Hx Renal Insufficiency. Denies: Hx Peritoneal Dialysis Malignancy Medical History: Reports: Hx Skin Cancer - Squamous cell GI Medical History: Reports: Hx Diverticulitis, Hx Gastritis, Hx Gastroesophageal Reflux Disease - With hiatal hernia, Hx Colonoscopy, Hx Endoscopy Musculoskeltal Medical History: Reports Hx Arthritis, Reports Hx Musculoskeletal Deformity, Reports Hx Musculoskeletal Trauma Past Surgical History: Reports: Hx Appendectomy, Hx Cholecystectomy, Hx Hysterectomy, Hx Orthopedic Surgery - stas tkr x 2 , foot , hand, carpal tunnel surgery of the right wrist, Hx Pancreatic Surgery, Hx Thyroid Surgery, Hx Tonsillectomy, Other - EGD, hemorrhoidectomy, colonoscopy, cataract extraction - Immunizations Hx Diphtheria, Pertussis, Tetanus Vaccination: No History of Influenza Vaccine for 03/2017 - 08/2017 Season: No Physical Exam - Vital signs Vitals: Temp Pulse Resp BP Pulse Ox 98.6 F 84 17 150/66 H 97 09/12/17 10:19 09/12/17 10:19 09/12/17 10:19 09/12/17 10:19 09/12/17 10:19 Course - Vital Signs Vital signs: Temp Pulse Resp BP Pulse Ox 98.6 F 84 17 150/66 H 97 09/12/17 10:19 09/12/17 10:19 09/12/17 10:19 09/12/17 10:19 09/12/17 10:19 Doctor's Discharge - Discharge Referrals: TIERA LUGO MD [Primary Care Provider] - Follow up as needed
[2017-09-12 11:51] LABS: HEMATOCRIT 31.2 % (36.0-47.0); HEMOGLOBIN 10.2 g/dL (12.0-15.5); MEAN CORPUSCULAR HEMOGLOBIN 29.2 pg (27.0-33.4); MEAN CORPUSCULAR HGB CONC 32.8 g/dL (32.0-36.0); MEAN CORPUSCULAR VOLUME 89 fl (80-97); PLATELET COUNT 161 10^3/uL (150-450); RED CELL DISTRIBUTION WIDTH 21.3 % (11.5-14.0); WHITE BLOOD COUNT 6.8 10^3/uL (4.0-10.5)
[2017-09-12 11:53] LABS: APPEARANCE,URINE CLEAR; BILIRUBIN,URINE NEGATIVE (NEGATIVE); COLOR,URINE STRAW; GLUCOSE, URINE NEGATIVE (NEGATIVE); KETONES,URINE NEGATIVE (NEGATIVE); LEUKOCYTE ESTERASE,URINE NEGATIVE (NEGATIVE); NITRITE,URINE NEGATIVE (NEGATIVE); PROTEIN,URINE NEGATIVE (NEGATIVE); URINE SPECIFIC GRAVITY 1.004; UROBILINOGEN,URINE NEGATIVE mg/dL (<2.0)
[2017-09-12 12:06] LABS: ALANINE AMINOTRANSFERASE 20 U/L (9-52); ALBUMIN 4.2 g/dL (3.5-5.0); ALKALINE PHOSPHATASE 70 U/L (38-126); ANION GAP 9 (5-19); ASPARTATE AMINO TRANSFERASE 31 U/L (14-36); BILIRUBIN,DIRECT 0.2 mg/dL (0.0-0.4); BILIRUBIN,TOTAL 0.3 mg/dL (0.2-1.3); BLOOD UREA NITROGEN 35 mg/dL (7-20); CALCIUM 9.5 mg/dL (8.4-10.2); CARBON DIOXIDE 27 mmol/L (22-30); CHLORIDE 103 mmol/L (98-107); GLUCOSE 87 mg/dL (75-110); POTASSIUM 5.2 mmol/L (3.6-5.0); SODIUM 138.6 mmol/L (137-145); TOTAL PROTEIN 6.2 g/dL (6.3-8.2)
[2017-09-12 12:20] LABS: ABSOLUTE LYMPHOCYTES# (MANUAL) 0.9 10^3/uL (0.5-4.7); ABSOLUTE MONOCYTES # (MANUAL) 0.3 10^3/uL (0.1-1.4); ABSOLUTE NEUTROPHILS# (MANUAL) 3.7 10^3/uL (1.7-8.2); BASOPHILS % (MANUAL) 0 % (0-2); LYMPHOCYTES % (MANUAL) 13 % (13-45); MONOCYTES % (MANUAL) 5 % (3-13); SEGMENTED NEUTROPHILS % (MAN) 54 % (42-78); TOTAL CELLS COUNTED 100
[2017-09-12 12:21] LABS: ANISOCYTOSIS 3+; BURR CELLS SLIGHT; EOSINOPHILS % (MANUAL) 28 % (0-6); OVALOCYTES 2+; POIKILOCYTOSIS 2+
[2017-09-12] MEDS ORDERED: NORMAL SALINE 1000 ML 1,000 ML IV PRN (12:21)
[2017-09-12 12:22] LABS: PLATELET COMMENT ADEQUATE
[2017-09-12] MEDS ORDERED: BUPIVACAINE HCL 0.75% INJ/PF (7.5 MG/1 ML) 10 ML SDV INJ ONE (12:22)
--- NOTE | 2017-09-12 12:25 | ER Document Report ---
ED General - General Chief Complaint: Numbness of Arm Stated Complaint: RIGHT SIDE WEAKNESS, CHEST PAIN Time Seen by Provider: 09/12/17 11:14 Notes: HPI 82 years old female-was evaluated for right-sided numbness and tingling sensation by the primary care physician which included MRI with negative finding. Presents today with pain and discomfort over the right side of the neck and numbness over the right arm. In general malaise and dehydration. Denies any fever chills denies any chest pain shortness of breath, cough. Denies any dysuria frequency urgency. Denies any nausea vomiting REVIEW OF SYSTEMS: CONSTITUTIONAL : Denies fever, chills, or sweats. Denies recent illness. EENT: Denies eye, ear, throat, or mouth pain or symptoms. Denies nasal or sinus congestion or discharge. Denies throat, tongue, or mouth swelling or difficulty swallowing. CARDIOVASCULAR: Denies chest pain. Denies palpitations or racing or irregular heart beat. Denies ankle edema. RESPIRATORY: Denies cough, cold, or chest congestion. Denies shortness of breath, difficulty breathing, or wheezing. GASTROINTESTINAL: Denies abdominal pain or distention. Denies nausea, vomiting , or diarrhea. Denies blood in vomitus, stools, or per rectum. Denies black, tarry stools. Denies constipation. GENITOURINARY: Denies difficulty urinating, painful urination, burning, frequency, blood in urine, or discharge. FEMALE GENITOURINARY: Denies vaginal bleeding, heavy or abnormal periods, irregular periods. Denies vaginal discharge or odor. MUSCULOSKELETAL: Denies back or neck pain or stiffness. Denies joint pain or swelling. SKIN: Denies rash, lesions or sores. HEMATOLOGIC : Denies easy bruising or bleeding. LYMPHATIC: Denies swollen, enlarged glands. NEUROLOGICAL: Denies confusion or altered mental status. Denies passing out or loss of consciousness. Denies dizziness or lightheadedness. Denies headache. Denies weakness or paralysis or loss of use of either side. Denies problems with gait or speech. Denies sensory loss, numbness, or tingling. Denies seizures. PSYCHIATRIC: Denies anxiety or stress. Denies depression, suicidal ideation, or homicidal ideation. ALL OTHER SYSTEMS REVIEWED AND NEGATIVE. PHYSICAL EXAMINATION: GENERAL: Well-appearing, well-nourished and in no acute distress. HEAD: Atraumatic, normocephalic. EYES: Pupils equal round and reactive to light, extraocular movements intact, conjunctiva are normal. ENT: Nares patent, oropharynx clear without exudates. Moist mucous membranes. NECK: . No lymphadenopathy sharp tenderness noted along the right scalene muscle as well as cleidomastoid muscle. LUNGS: Breath sounds clear to auscultation bilaterally and equal. No wheezes rales or rhonchi. HEART: Regular rate and rhythm without murmurs ABDOMEN: Soft, nontender, nondistended abdomen. No guarding, no rebound. No masses appreciated. Female : deferred Musculoskeletal: Normal range of motion, no pitting or edema. No cyanosis. NEUROLOGICAL: Cranial nerves grossly intact. Normal speech, normal gait. Normal sensory, motor exams PSYCH: Normal mood, normal affect. SKIN: Warm, Dry, normal turgor, no rashes or lesions noted. Dictation was performed using [employer] voice recognition software TRAVEL OUTSIDE OF THE [place] IN LAST 30 DAYS: No - HPI Patient complains to provider of: Dictated above - Related Data Allergies/Adverse Reactions: Sulfa (Sulfonamide Antibiotics) Allergy (Intermediate, Verified 09/12/17 10:14) Generalized Itching morphine [Morphine] Adverse Reaction (Intermediate, Verified 09/12/17 10:14) Severe Nausea Past Medical History - General Information source: Patient - Social History Smoking Status: Never Smoker Frequency of alcohol use: None Drug Abuse: None Family History: Reviewed & Not Pertinent, CAD, Hypertension Patient has suicidal ideation: No Patient has homicidal ideation: No - Past Medical History Cardiac Medical History: Reports: Hx Congestive Heart Failure, Hx Coronary Artery Disease, Hx Hypertension - medicated Pulmonary Medical History: Reports: Hx Bronchitis, Hx Sleep Apnea Neurological Medical History: Denies: Hx Seizures Endocrine Medical History: Reports: Hx Hypothyroidism Renal/ Medical History: Reports: Hx End Stage Renal Disease - Stage IV, no plan for dialysis, Hx Renal Insufficiency. Denies: Hx Peritoneal Dialysis Malignancy Medical History: Reports: Hx Skin Cancer - Squamous cell GI Medical History: Reports: Hx Diverticulitis, Hx Gastritis, Hx Gastroesophageal Reflux Disease - With hiatal hernia, Hx Colonoscopy, Hx Endoscopy Musculoskeltal Medical History: Reports Hx Arthritis, Reports Hx Musculoskeletal Deformity, Reports Hx Musculoskeletal Trauma Past Surgical History: Reports: Hx Appendectomy, Hx Cholecystectomy, Hx Hysterectomy, Hx Orthopedic Surgery - stas tkr x 2 , foot , hand, carpal tunnel surgery of the right wrist, Hx Pancreatic Surgery, Hx Thyroid Surgery, Hx Tonsillectomy, Other - EGD, hemorrhoidectomy, colonoscopy, cataract extraction - Immunizations Hx Diphtheria, Pertussis, Tetanus Vaccination: No Hx Pneumococcal Vaccination: 03/20/10 Review of Systems - Review of Systems Notes: History of complain Physical Exam - Vital signs Vitals: Temp Pulse Resp BP Pulse Ox 98.6 F 84 17 150/66 H 97 09/12/17 10:19 09/12/17 10:19 09/12/17 10:19 09/12/17 10:19 09/12/17 10:19 Course - Re-evaluation Re-evalutation: 09/12/17 15:20 Was given trigger point injection to the right side of the sternocleidomastoid muscle - Vital Signs Vital signs: Temp Pulse Resp BP Pulse Ox 98.6 F 84 17 150/66 H 97 09/12/17 10:19 09/12/17 10:19 09/12/17 10:19 09/12/17 10:19 09/12/17 10:19 - Laboratory Result Diagrams: 09/12/17 11:30 09/12/17 11:30 Laboratory results interpreted by me: 09/12/17 09/12/17 09/12/17 11:30 11:30 11:30 RBC 3.50 L Hgb 10.2 L Hct 31.2 L RDW 21.3 H Eosinophils % (Manual) 28 H Absolute Eos (Manual) 1.9 H Potassium 5.2 H BUN 35 H Creatinine 2.32 H Est GFR ( Amer) 24 L Est GFR (Non-Af Amer) 20 L Ferritin 333.00 H Total Protein 6.2 L Procedures - Additional Procedures Trigger point injection Time performed: 15:00 Additional Procedures: Other - Trigger point injection to the right side of the neck/sternocleidomastoid muscle it was done under aseptic condition using sterile technique after cleaning with alcohol. Using 80 mg of Depo-Medrol and Marcaine 5 cc. Discharge - Discharge Clinical Impression: Dehydration, Chronic kidney disease, stage III (moderate) Cervical strain, acute Qualifiers: Encounter type: initial encounter Qualified Code(s): S16.1XXA - Strain of muscle, fascia and tendon at neck level, initial encounter Arthralgia Qualifiers: Joint pain location: unspecified Qualified Code(s): M25.50 - Pain in unspecified joint Condition: Fair Disposition: HOME, SELF-CARE Instructions: Arthralgia ([facility]), Dehydration ([facility]) Prescriptions: Hydrocodone/Acetaminophen [Vicodin 5-300 mg Tablet] 1 each PO Q6HP PRN #20 tablet PRN Reason: Referrals: TIERA LUGO MD [Primary Care Provider] - Follow up as needed
[2017-09-12 12:44] LABS: IRON(TIBC) 100.5 ug/dL (37-170)
[2017-09-12] MEDS ORDERED: METHYLPREDNISOLONE ACETATE INJ 80 MG/1 ML VIAL IM PRN (13:39)
[2017-09-12 13:51] LABS: FOLATE 8.56 ng/mL (>2.76)
[2017-09-12 15:46] VITALS: BP 147/61
== END 2017-09-12 15:44 | disposition home or self-care (01) ==
LOC: ER 10:13
PROC: 3E0233Z Introduction of Anti-inflammatory into Muscle, Percutaneous Approach (ICD-10-PCS; principal; 2017-09-12)
PROC: 3E023BZ Introduction of Anesthetic Agent into Muscle, Percutaneous Approach (ICD-10-PCS; 2017-09-12)
DX: S16.1XXA Strain of muscle, fascia and tendon at neck level, initial encounter (principal); M25.50 Pain in unspecified joint; E86.0 Dehydration; I12.9 Hypertensive chronic kidney disease with stage 1 through stage 4 chronic kidney disease, or unspecified chronic kidney disease; N18.3 Chronic kidney disease, stage 3 (moderate); R20.0 Anesthesia of skin; R53.1 Weakness; R07.9 Chest pain, unspecified; M54.2 Cervicalgia; R53.81 Other malaise; I25.10 Atherosclerotic heart disease of native coronary artery without angina pectoris; X58.XXXA Exposure to other specified factors, initial encounter
CPT/HCPCS: 99284; 96372; 96360; 96361; 36415; 82607; 82728; 82746; 83540; 83550; 83735; 84443; 85025; 80053; 81001; 20552; J3490; J1040; J7030

== ENCOUNTER → 2017-09-19 | Outpatient (CLI) | payer MEDICARE, OTHER ==
[2017-09-19 07:43] LABS: ABSOLUTE BASOPHILS # (AUTO) 0.1 10^3/uL (0.0-0.2); ABSOLUTE EOSINOPHILS # (AUTO) 0.4 10^3/uL (0.0-0.6); ABSOLUTE LYMPHOCYTES (AUTO) 1.1 10^3/uL (0.5-4.7); ABSOLUTE MONOCYTES (AUTO) 0.6 10^3/uL (0.1-1.4); ABSOLUTE NEUT (AUTO) 3.8 10^3/uL (1.7-8.2); BASOPHILS % (AUTO) 1.3 % (0-2); EOSINOPHILS % (AUTO) 7.1 % (0-6); HEMATOCRIT 30.7 % (36.0-47.0); HEMOGLOBIN 10.1 g/dL (12.0-15.5); LYMPHOCYTES % (AUTO) 18.4 % (13-45); MEAN CORPUSCULAR HEMOGLOBIN 29.2 pg (27.0-33.4); MEAN CORPUSCULAR HGB CONC 32.8 g/dL (32.0-36.0); MEAN CORPUSCULAR VOLUME 89 fl (80-97); MONOCYTES % (AUTO) 10.4 % (3-13); PLATELET COUNT 168 10^3/uL (150-450); RED BLOOD COUNT 3.45 10^6/uL (3.72-5.28); RED CELL DISTRIBUTION WIDTH 21.4 % (11.5-14.0); SEGMENTED NEUTROPHILS % (AUTO) 62.8 % (42-78); TOTAL CELLS COUNTED % (AUTO) 100 %; WHITE BLOOD COUNT 6.1 10^3/uL (4.0-10.5)
[2017-09-19 08:06] LABS: ANION GAP 9 (5-19); BLOOD UREA NITROGEN 51 mg/dL (7-20); CALCIUM 9.1 mg/dL (8.4-10.2); CARBON DIOXIDE 25 mmol/L (22-30); CHLORIDE 104 mmol/L (98-107); GLUCOSE 92 mg/dL (75-110); PHOSPHORUS 5.1 mg/dL (2.5-4.5); POTASSIUM 5.5 mmol/L (3.6-5.0); SODIUM 138.2 mmol/L (137-145)
[2017-09-19 09:59] LABS: APPEARANCE,URINE CLEAR; BILIRUBIN,URINE NEGATIVE (NEGATIVE); COLOR,URINE COLORLESS; GLUCOSE, URINE NEGATIVE (NEGATIVE); KETONES,URINE NEGATIVE (NEGATIVE); NITRITE,URINE NEGATIVE (NEGATIVE); PROTEIN,URINE NEGATIVE (NEGATIVE); UROBILINOGEN,URINE NEGATIVE mg/dL (<2.0)
[2017-09-19 10:00] LABS: LEUKOCYTE ESTERASE,URINE NEGATIVE (NEGATIVE)
[2017-09-20 11:39] LABS: CREATININE URINE 58.8 mg/dL (Not Estab.)
[2017-09-20 12:06] LABS: MICROALBUMIN URINE <3.0 ug/mL (Not Estab.)
== END ==
LOC: OD 07:15
PROVIDERS: ATTEND Internal Medicine Nephrology
DX: N18.4 Chronic kidney disease, stage 4 (severe) (principal); D63.1 Anemia in chronic kidney disease; E83.39 Other disorders of phosphorus metabolism
CPT/HCPCS: 36415; 80048; 81001; 82040; 82043; 82306; 82570; 83970; 84100; 85025

== ENCOUNTER 2017-11-03 10:12 | Emergency (ER) | payer MEDICARE, OTHER ==
--- NOTE | 2017-11-03 12:15 | ER Document Report ---
ED Medical Screen (RME) - General Chief Complaint: Abdominal Pain Stated Complaint: ABDOMINAL PAIN Time Seen by Provider: 11/03/17 11:44 Mode of Arrival: Ambulatory Information source: Patient, Relative, [facility] Records Notes: 82-year-old female with a history of hypertension, end-stage renal disease, chronic pancreatitis, congestive heart failure, CAD presents with complaint of abdominal pain. Patient states that she has chronic abdominal pain but reports that over the last week it has gotten worse. Pain is described as sharp, constant and located in the periumbilical region. Patient has had a soft associated nausea without vomiting. She does have a long-standing history of constipation. She is also complaining of rectal pain and leg numbness. Patient also reports black stools. She has started an iron supplement but states that the black stools started 1 month ago. Patient surgical history includes hysterectomy cholecystectomy and appendectomy. She reports feeling a "heartbeat across her belly". I have greeted and performed a rapid medical assessment of the patient. A comprehensive evaluation and assessment will be performed by another ED provider. Medical decision making, lab review/xrays if performed will be reviewed by the ED provider assuming care of the patient. PHYSICAL EXAMINATION: GENERAL: Well-appearing, well-nourished and in no acute distress. HEAD: Atraumatic, normocephalic. EYES: Pupils equal round extraocular movements intact, conjunctiva are normal. ENT: Nares patent NECK: Normal range of motion LUNGS: No respiratory distress Abdomen: Tender to palpation in the periumbilical region. Musculoskeletal: Normal range of motion NEUROLOGICAL: Normal speech, normal gait. PSYCH: Normal mood, normal affect. SKIN: Warm, Dry, normal turgor, no rashes or lesions noted. TRAVEL OUTSIDE OF THE [place] IN LAST 30 DAYS: No - HPI Onset: Last week Onset/Duration: Gradual, Persistent, Worse Quality of pain: Stabbing, Throbbing Severity: Moderate Associated Symptoms: Nausea, Other - Obstipation, rectal pain. denies: Vomiting Exacerbated by: Denies Relieved by: Denies Similar symptoms previously: Yes Recently seen / treated by doctor: No - Related Data Smoking: Non-smoker Frequency of alcohol use: None Drug Abuse: None Allergies/Adverse Reactions: Sulfa (Sulfonamide Antibiotics) Allergy (Intermediate, Verified 11/03/17 10:16) Generalized Itching morphine [Morphine] Adverse Reaction (Intermediate, Verified 11/03/17 10:16) Severe Nausea Past Medical History - Social History Chew tobacco use (# tins/day): No Frequency of alcohol use: None Drug Abuse: None - Past Medical History Cardiac Medical History: Reports: Hx Congestive Heart Failure, Hx Coronary Artery Disease, Hx Hypertension - medicated Pulmonary Medical History: Reports: Hx Bronchitis, Hx Sleep Apnea Neurological Medical History: Denies: Hx Seizures Endocrine Medical History: Reports: Hx Hypothyroidism Renal/ Medical History: Reports: Hx End Stage Renal Disease - Stage IV, no plan for dialysis, Hx Renal Insufficiency. Denies: Hx Peritoneal Dialysis Malignancy Medical History: Reports: Hx Skin Cancer - Squamous cell GI Medical History: Reports: Hx Diverticulitis, Hx Gastritis, Hx Gastroesophageal Reflux Disease - With hiatal hernia, Hx Colonoscopy, Hx Endoscopy Musculoskeltal Medical History: Reports Hx Arthritis, Reports Hx Musculoskeletal Deformity, Reports Hx Musculoskeletal Trauma Past Surgical History: Reports: Hx Appendectomy, Hx Cholecystectomy, Hx Hysterectomy, Hx Orthopedic Surgery - stas tkr x 2 , foot , hand, carpal tunnel surgery of the right wrist, Hx Pancreatic Surgery, Hx Thyroid Surgery, Hx Tonsillectomy, Other - EGD, hemorrhoidectomy, colonoscopy, cataract extraction - Immunizations Hx Diphtheria, Pertussis, Tetanus Vaccination: No History of Influenza Vaccine for 03/2017 - 08/2017 Season: No Physical Exam - Vital signs Vitals: Temp Pulse Resp BP Pulse Ox 98.8 F 69 16 140/67 H 96 11/03/17 10:26 11/03/17 10:26 11/03/17 10:26 11/03/17 10:26 11/03/17 10:26 Course - Vital Signs Vital signs: Temp Pulse Resp BP Pulse Ox 98.8 F 69 16 140/67 H 96 11/03/17 10:26 11/03/17 10:26 11/03/17 10:26 11/03/17 10:26 11/03/17 10:26
[2017-11-03 12:59] LABS: ABSOLUTE BASOPHILS # (AUTO) 0.1 10^3/uL (0.0-0.2); ABSOLUTE EOSINOPHILS # (AUTO) 0.1 10^3/uL (0.0-0.6); ABSOLUTE LYMPHOCYTES (AUTO) 1.1 10^3/uL (0.5-4.7); ABSOLUTE MONOCYTES (AUTO) 0.6 10^3/uL (0.1-1.4); ABSOLUTE NEUT (AUTO) 5.6 10^3/uL (1.7-8.2); BASOPHILS % (AUTO) 0.8 % (0-2); EOSINOPHILS % (AUTO) 1.8 % (0-6); HEMOGLOBIN 11.5 g/dL (12.0-15.5); MEAN CORPUSCULAR HEMOGLOBIN 29.2 pg (27.0-33.4); MEAN CORPUSCULAR HGB CONC 32.7 g/dL (32.0-36.0); MEAN CORPUSCULAR VOLUME 89 fl (80-97); MONOCYTES % (AUTO) 8.3 % (3-13); PLATELET COUNT 210 10^3/uL (150-450); RED BLOOD COUNT 3.92 10^6/uL (3.72-5.28); RED CELL DISTRIBUTION WIDTH 16.9 % (11.5-14.0); SEGMENTED NEUTROPHILS % (AUTO) 74.1 % (42-78); TOTAL CELLS COUNTED % (AUTO) 100 %; WHITE BLOOD COUNT 7.6 10^3/uL (4.0-10.5)
[2017-11-03 13:17] LABS: ALANINE AMINOTRANSFERASE 25 U/L (9-52); ALBUMIN 4.5 g/dL (3.5-5.0); ALKALINE PHOSPHATASE 70 U/L (38-126); ANION GAP 13 (5-19); ASPARTATE AMINO TRANSFERASE 29 U/L (14-36); BILIRUBIN,DIRECT 0.2 mg/dL (0.0-0.4); BILIRUBIN,TOTAL 0.2 mg/dL (0.2-1.3); BLOOD UREA NITROGEN 38 mg/dL (7-20); CARBON DIOXIDE 25 mmol/L (22-30); CHLORIDE 105 mmol/L (98-107); CREATINE KINASE 229 U/L (30-135); GLUCOSE 101 mg/dL (75-110); POTASSIUM 5.1 mmol/L (3.6-5.0); SODIUM 142.6 mmol/L (137-145); TOTAL PROTEIN 6.8 g/dL (6.3-8.2)
[2017-11-03 13:32] LABS: CREATINE KINASE MB 2.99 ng/mL (<4.55)
[2017-11-03 13:36] LABS: TROPONIN I 0.042 ng/mL
[2017-11-03 14:03] LABS: APPEARANCE,URINE CLEAR; BILIRUBIN,URINE NEGATIVE (NEGATIVE); COLOR,URINE YELLOW; GLUCOSE, URINE NEGATIVE (NEGATIVE); KETONES,URINE NEGATIVE (NEGATIVE); LEUKOCYTE ESTERASE,URINE LARGE (NEGATIVE); NITRITE,URINE NEGATIVE (NEGATIVE); PROTEIN,URINE NEGATIVE (NEGATIVE); URINE SPECIFIC GRAVITY 1.009; UROBILINOGEN,URINE NEGATIVE mg/dL (<2.0)
--- NOTE | 2017-11-03 15:21 | RADIOLOGY REPORT (SQ) ---
EXAM DESCRIPTION: CT ABD/PELVIS NO ORAL OR IV COMPLETED DATE/TIME: 11/03/2017 3:03 pm REASON FOR STUDY: abdominal pain COMPARISON: CT abdomen pelvis 04/01/2017, 11/23/2014, 10/22/2011 TECHNIQUE: CT scan of the abdomen and pelvis performed without intravenous or oral contrast. Images reviewed with lung, soft tissue, and bone windows. Reconstructed coronal and sagittal MPR images revi ewed. All images stored on PACS. All CT scanners at this facility use dose modulation, iterative reconstruction, and/or weight based d osing when appropriate to reduce radiation dose to as low as reasonably achievable (ALARA). [facility]: Dose Right [facility]: CareDose [facility]: Dose Right [facility]: Teradose 4D [facility]: Smart [employer] RADIATION DOSE: CT Rad equipment meets quality standard of care and radiation dose reduction techniq ues were employed. CTDIvol: 15.5 mGy. DLP: 874 mGy-cm.mGy. LIMITATIONS: None. FINDINGS: LOWER CHEST: Calcified aortic valve. Moderate retrocardiac hiatal hernia. Lung bases are clear. NON-CONTRASTED LIVER, SPLEEN, ADRENALS: Evaluation limited by lack of IV contrast. No identified sign ificant masses. PANCREAS: No masses. No peripancreatic inflammatory changes. GALLBLADDER: No identified stones by CT criteria. No inflammatory changes to suggest cholecystitis. RIGHT KIDNEY AND URETER: Small, with 1 cm midpole renal cortical cyst No significant calcifications . No hydronephrosis or hydroureter. LEFT KIDNEY AND URETER: Small, with 1 cm left midpole and lower pole cortical cysts. 5 mm hemorrhagi c cyst left mid pole kidney. No significant calcifications. No hydronephrosis or hydroureter. AORTA AND RETROPERITONEUM: No aneurysm. No retroperitoneal masses or adenopathy. BOWEL AND PERITONEAL CAVITY: No free intraperitoneal air or fluid. No CT signs of bowel obstruction. There are sigmoid colon diverticuli. Short segment of distal descending/ proximal sigmoid colon in flammation with wall thickening and surrounding inflammatory change in the pericolic fat worrisome fo r acute diverticulitis. No abscess. No free air. No free fluid. In the area of diverticular inflammation, a faintly radiopaque linear structure is seen within the gu t lumen new compared to prior studies. This is of uncertain clinical significance, best shown on axi al image 72. This finding was discussed with Dr. uJne APPENDIX: Surgically absent PELVIS, BLADDER, AND ABDOMINAL WALL:No abnormal masses. No free fluid. Bladder normal. Post hysterec anna. There is a moderate to large right inguinal hernia containing mesenteric fat, best shown on ax ial image 84 and coronal image 31. BONES: No significant findings. OTHER: No other significant finding. IMPRESSION: Short segment of distal descending colon/ proximal sigmoid colon diverticulitis COMMENT: Quality ID # [id number]: Final reports with documentation of one or more dose reduction techniques (e.g., Automated exposure control, adjustment of the mA and/or kV according to patient size, use of iterative reconstruction technique) TECHNICAL DOCUMENTATION: JOB ID: [id number] [employer]- All Rights Reserved Reading location - IP/workstation name: [email or web address]
--- NOTE | 2017-11-03 15:27 | ER Document Report ---
ED General - General Chief Complaint: Abdominal Pain Stated Complaint: ABDOMINAL PAIN Time Seen by Provider: 11/03/17 11:44 Mode of Arrival: Ambulatory Information source: Patient Notes: 82-year-old female history of pancreatitis diverticulitis presents with complaints of abdominal pain. Patient admits to rectal pain denies any fevers or chills denies any nausea vomiting or diarrhea. Patient states that she is worried about her pancreas TRAVEL OUTSIDE OF THE [place] IN LAST 30 DAYS: No - HPI Onset: Other Onset/Duration: Persistent Quality of pain: Achy Severity: Mild Pain Level: 1 Associated symptoms: Other Exacerbated by: Denies Relieved by: Denies Similar symptoms previously: Yes Recently seen / treated by doctor: Yes - Related Data Allergies/Adverse Reactions: Sulfa (Sulfonamide Antibiotics) Allergy (Intermediate, Verified 11/03/17 10:16) Generalized Itching morphine [Morphine] Adverse Reaction (Intermediate, Verified 11/03/17 10:16) Severe Nausea Past Medical History - General Information source: Patient, Relative, [facility] Records - Social History Smoking Status: Former Smoker Cigarette use (# per day): No Chew tobacco use (# tins/day): No Smoking Education Provided: No Frequency of alcohol use: None Drug Abuse: None Family History: Reviewed & Not Pertinent, CAD, Hypertension Patient has suicidal ideation: No Patient has homicidal ideation: No - Past Medical History Cardiac Medical History: Reports: Hx Congestive Heart Failure, Hx Coronary Artery Disease, Hx Hypertension - medicated Pulmonary Medical History: Reports: Hx Bronchitis, Hx Sleep Apnea Neurological Medical History: Denies: Hx Seizures Endocrine Medical History: Reports: Hx Hypothyroidism Renal/ Medical History: Reports: Hx End Stage Renal Disease - Stage IV, no plan for dialysis, Hx Renal Insufficiency. Denies: Hx Peritoneal Dialysis Malignancy Medical History: Reports: Hx Skin Cancer - Squamous cell GI Medical History: Reports: Hx Diverticulitis, Hx Gastritis, Hx Gastroesophageal Reflux Disease - With hiatal hernia, Hx Colonoscopy, Hx Endoscopy Musculoskeltal Medical History: Reports Hx Arthritis, Reports Hx Musculoskeletal Deformity, Reports Hx Musculoskeletal Trauma Past Surgical History: Reports: Hx Appendectomy, Hx Cholecystectomy, Hx Hysterectomy, Hx Orthopedic Surgery - stas tkr x 2 , foot , hand, carpal tunnel surgery of the right wrist, Hx Pancreatic Surgery, Hx Thyroid Surgery, Hx Tonsillectomy, Other - EGD, hemorrhoidectomy, colonoscopy, cataract extraction - Immunizations Hx Diphtheria, Pertussis, Tetanus Vaccination: No Hx Pneumococcal Vaccination: 03/20/10 Review of Systems - Review of Systems Notes: REVIEW OF SYSTEMS: CONSTITUTIONAL : Denies fever, chills, or sweats. Denies recent illness. EENT: Denies eye, ear, throat, or mouth pain or symptoms. Denies nasal or sinus congestion or discharge. Denies throat, tongue, or mouth swelling or difficulty swallowing. CARDIOVASCULAR: Denies chest pain. Denies palpitations or racing or irregular heart beat. Denies ankle edema. RESPIRATORY: Denies cough, cold, or chest congestion. Denies shortness of breath, difficulty breathing, or wheezing. GASTROINTESTINAL: Admits to abdominal pain GENITOURINARY: Denies difficulty urinating, painful urination, burning, frequency, blood in urine, or discharge. FEMALE GENITOURINARY: Denies vaginal bleeding, heavy or abnormal periods, irregular periods. Denies vaginal discharge or odor. MUSCULOSKELETAL: Denies back or neck pain or stiffness. Denies joint pain or swelling. SKIN: Denies rash, lesions or sores. HEMATOLOGIC : Denies easy bruising or bleeding. LYMPHATIC: Denies swollen, enlarged glands. NEUROLOGICAL: Denies confusion or altered mental status. Denies passing out or loss of consciousness. Denies dizziness or lightheadedness. Denies headache. Denies weakness or paralysis or loss of use of either side. Denies problems with gait or speech. Denies sensory loss, numbness, or tingling. Denies seizures. PSYCHIATRIC: Denies anxiety or stress. Denies depression, suicidal ideation, or homicidal ideation. ALL OTHER SYSTEMS REVIEWED AND NEGATIVE. PHYSICAL EXAMINATION: GENERAL: Well-appearing, well-nourished and in no acute distress. HEAD: Atraumatic, normocephalic. EYES: Pupils equal round and reactive to light, extraocular movements intact, conjunctiva are normal. ENT: Nares patent, oropharynx clear without exudates. Moist mucous membranes. NECK: Normal range of motion, supple without lymphadenopathy LUNGS: Breath sounds clear to auscultation bilaterally and equal. No wheezes rales or rhonchi. HEART: Regular rate and rhythm without murmurs ABDOMEN: Soft, generalized abdominal tenderness. External hemorrhoid noted nonthrombosed Female : deferred Musculoskeletal: Normal range of motion, no pitting or edema. No cyanosis. NEUROLOGICAL: Cranial nerves grossly intact. Normal speech, normal gait. Normal sensory, motor exams PSYCH: Normal mood, normal affect. SKIN: Warm, Dry, normal turgor, no rashes or lesions noted. Dictation was performed using [employer] voice recognition software Physical Exam - Vital signs Vitals: Temp Pulse Resp BP Pulse Ox 98.8 F 69 16 140/67 H 96 11/03/17 10:11/03/17 10:11/03/17 10:11/03/17 10:11/03/17 10:26 Course - Re-evaluation Re-evalutation: 11/03/17 15:25 Patient lab was notes no significant abnormality, mild lipase elevation however at this appears to be chronic in nature, patient was started on antibiotics for diverticulitis which is noted on CT, she is afebrile well-appearing no distress After performing a Medical Screening Examination, I estimate there is LOW risk for ACUTE APPENDICITIS, BOWEL OBSTRUCTION, ACUTE CHOLECYSTITIS, PERFORATED DIVERTICULITIS, INCARCERATED HERNIA, PANCREATITIS, PELVIC INFLAMMATORY DISEASE, PERFORATED ULCER, ECTOPIC , or TUBO-OVARIAN ABSCESS, thus I consider the discharge disposition reasonable. Also, there is no evidence or peritonitis , sepsis, or toxicity. I have reevaluated this patient multiple times and no significant life threatening changes are noted. The patient and I have discussed the diagnosis and risks, and we agree with discharging home with close follow-up with the understanding that symptoms and presentations can change. We also discussed returning to the Emergency Department immediately if new or worsening symptoms occur. We have discussed the symptoms which are most concerning (e.g., bloody stool, fever, changing or worsening pain, vomiting) that necessitate immediate return. - Vital Signs Vital signs: Temp Pulse Resp BP Pulse Ox 98.8 F 69 16 140/67 H 96 11/03/17 10:11/03/17 10:11/03/17 10:11/03/17 10:11/03/17 10:26 - Laboratory Result Diagrams: 11/03/17 12:15 11/03/17 12:15 Laboratory results interpreted by me: 11/03/17 11/03/17 11/03/17 12:15 12:15 12:15 Hgb 11.5 L Hct 35.0 L RDW 16.9 H Potassium 5.1 H BUN 38 H Creatinine 2.41 H Est GFR ( Amer) 23 L Est GFR (Non-Af Amer) 19 L Creatine Kinase 229 H Lipase 318.0 H Urine Blood SMALL H Ur Leukocyte Esterase LARGE H - Diagnostic Test Radiology reviewed: Image reviewed - ct abd pelvis with no contrast presents with complaints, Reports reviewed Discharge - Discharge Clinical Impression: Diverticulitis Hemorrhoid Qualifiers: Hemorrhoid type: unspecified Qualified Code(s): K64.9 - Unspecified hemorrhoids Condition: Stable Disposition: HOME, SELF-CARE Instructions: Diverticulitis ([facility]) Prescriptions: Ciprofloxacin HCl [Cipro 500 mg Tablet] 500 mg PO BID #20 tablet Metronidazole [Flagyl 500 mg Tablet] 500 mg PO Q8 #30 tablet Referrals: TIERA LUGO MD [Primary Care Provider] - Follow up as needed
[2017-11-03 16:14] VITALS: BP 160/82
--- NOTE | 2017-11-03 19:25 | EKG REPORT ---
SEVERITY:- ABNORMAL ECG - SINUS RHYTHM PROBABLE INFERIOR INFARCT, OLD PROBABLE ANTEROLATERAL INFARCT, OLD : Confirmed by: Perla Peralta 03-Nov-2017 19:24:33
== END 2017-11-03 16:14 | disposition home or self-care (01) ==
LOC: ER 10:12
DX: K57.32 Diverticulitis of large intestine without perforation or abscess without bleeding (principal); K64.4 Residual hemorrhoidal skin tags; R74.8 Abnormal levels of other serum enzymes; I25.10 Atherosclerotic heart disease of native coronary artery without angina pectoris; I10 Essential (primary) hypertension; Z85.828 Personal history of other malignant neoplasm of skin; Z90.49 Acquired absence of other specified parts of digestive tract; Z87.19 Personal history of other diseases of the digestive system; Z88.2 Allergy status to sulfonamides; Z87.891 Personal history of nicotine dependence
CPT/HCPCS: 36415; 74176; 80053; 81001; 82550; 82553; 83605; 83690; 84484; 85025; 93005; 93010; 99285

== ENCOUNTER → 2017-11-15 | Outpatient (CLI) | payer MEDICARE, OTHER ==
[2017-11-15 13:00] LABS: FREE T4 (FREE THYROXINE) 1.26 ng/dL (0.78-2.19)
[2017-11-15 13:14] LABS: THYROID STIMULATING HORMONE 3.25 uIU/mL (0.47-4.68)
== END ==
LOC: OD 11:08
PROVIDERS: ATTEND Internal Medicine
DX: E03.9 Hypothyroidism, unspecified (principal); R00.2 Palpitations; R63.4 Abnormal weight loss
CPT/HCPCS: 36415; 84439; 84443

== ENCOUNTER 2017-12-08 07:37 | Emergency (ER) | payer MEDICARE, OTHER ==
[2017-12-08 08:25] LABS: ABSOLUTE EOSINOPHILS # (AUTO) 0.1 10^3/uL (0.0-0.6); ABSOLUTE LYMPHOCYTES (AUTO) 1.1 10^3/uL (0.5-4.7); ABSOLUTE MONOCYTES (AUTO) 0.6 10^3/uL (0.1-1.4); ABSOLUTE NEUT (AUTO) 3.7 10^3/uL (1.7-8.2); BASOPHILS % (AUTO) 0.9 % (0-2); EOSINOPHILS % (AUTO) 1.2 % (0-6); HEMATOCRIT 38.3 % (36.0-47.0); HEMOGLOBIN 12.7 g/dL (12.0-15.5); LYMPHOCYTES % (AUTO) 20.4 % (13-45); MEAN CORPUSCULAR HGB CONC 33.2 g/dL (32.0-36.0); MEAN CORPUSCULAR VOLUME 87 fl (80-97); MONOCYTES % (AUTO) 10.8 % (3-13); PLATELET COUNT 227 10^3/uL (150-450); RED BLOOD COUNT 4.39 10^6/uL (3.72-5.28); RED CELL DISTRIBUTION WIDTH 14.3 % (11.5-14.0); SEGMENTED NEUTROPHILS % (AUTO) 66.7 % (42-78); TOTAL CELLS COUNTED % (AUTO) 100 %; WHITE BLOOD COUNT 5.5 10^3/uL (4.0-10.5)
[2017-12-08 08:49] LABS: ALBUMIN 4.3 g/dL (3.5-5.0); ANION GAP 10 (5-19); BLOOD UREA NITROGEN 24 mg/dL (7-20); CALCIUM 9.9 mg/dL (8.4-10.2); CARBON DIOXIDE 26 mmol/L (22-30); CHLORIDE 102 mmol/L (98-107); GLUCOSE 98 mg/dL (75-110); SODIUM 137.7 mmol/L (137-145); TOTAL PROTEIN 6.9 g/dL (6.3-8.2)
[2017-12-08 08:50] LABS: ALANINE AMINOTRANSFERASE 19 U/L (9-52); ALKALINE PHOSPHATASE 58 U/L (38-126); ASPARTATE AMINO TRANSFERASE 23 U/L (14-36); BILIRUBIN,DIRECT 0.3 mg/dL (0.0-0.4); BILIRUBIN,TOTAL 0.4 mg/dL (0.2-1.3)
[2017-12-08 08:55] LABS: POTASSIUM 5.1 mmol/L (3.6-5.0)
[2017-12-08 09:21] LABS: APPEARANCE,URINE CLEAR; BILIRUBIN,URINE NEGATIVE (NEGATIVE); COLOR,URINE YELLOW; GLUCOSE, URINE NEGATIVE (NEGATIVE); KETONES,URINE NEGATIVE (NEGATIVE); LEUKOCYTE ESTERASE,URINE NEGATIVE (NEGATIVE); NITRITE,URINE NEGATIVE (NEGATIVE); PROTEIN,URINE NEGATIVE (NEGATIVE); UROBILINOGEN,URINE NEGATIVE mg/dL (<2.0)
--- NOTE | 2017-12-08 09:33 | EKG REPORT ---
SEVERITY:- ABNORMAL ECG - SINUS RHYTHM BORDERLINE INFERIOR AND LATERAL Q WAVES : Confirmed by: Perla Peralta 08-Dec-2017 09:33:01
[2017-12-08] MEDS ORDERED: ACETAMINOPHEN 325 MG TABLET PO ONE (10:16)
--- NOTE | 2017-12-08 13:06 | RADIOLOGY REPORT (SQ) ---
EXAM DESCRIPTION: CT HEAD WITHOUT COMPLETED DATE/TIME: 12/08/2017 12:46 pm REASON FOR STUDY: Headache for a couple of weeks. COMPARISON: December 2016 TECHNIQUE: Axial images acquired through the brain without intravenous contrast. Images reviewed wi th bone, brain and subdural windows. Additional sagittal and coronal reconstructions were generated. Images stored on PACS. All CT scanners at this facility use dose modulation, iterative reconstruction, and/or weight based d osing when appropriate to reduce radiation dose to as low as reasonably achievable (ALARA). [facility]: Dose Right [facility]: CareDose [facility]: Dose Right [facility]: Teradose 4D [facility]: Smart NeuString RADIATION DOSE: CT Rad equipment meets quality standard of care and radiation dose reduction techniq ues were employed. CTDIvol: 53.2 mGy. DLP: 991 mGy-cm. mGy. LIMITATIONS: None. FINDINGS: VENTRICLES: Prominent. CEREBRUM: No masses. No hemorrhage. No midline shift. Areas of low density in the white matter mos t likely due to chronic micro-vascular ischemic change. No evidence for acute infarction. CEREBELLUM: No masses. No hemorrhage. No alteration of density. No evidence for acute infarction. EXTRAAXIAL SPACES: Mild age-related involutional change. No fluid collections. No masses. ORBITS AND GLOBE: No intra- or extraconal masses. Normal contour of globe without masses. CALVARIUM: No fracture. PARANASAL SINUSES: No fluid or mucosal thickening. SOFT TISSUES: No mass or hematoma. OTHER: There is some prominence of the pituitary gland for the patient's age measuring 10.3 x 9.8 mm in diameters and the possibility of a pituitary mass cannot be excluded. MRI may be of value for fur ther evaluation IMPRESSION: MILD CHRONIC CHANGES OF ATROPHY AND MICROVASCULAR ISCHEMIA. There is prominence of the pituitary gland for the patient's age as noted above and the possibility of a pituitary mass cannot b e excluded. MRI may be of value for further evaluation if clinically warranted. Other findings as n oted above EVIDENCE OF ACUTE STROKE: NO. TECHNICAL DOCUMENTATION: JOB ID: [id number] Quality ID # [id number]: Final reports with documentation of one or more dose reduction techniques (e.g., Au tomated exposure control, adjustment of the mA and/or kV according to patient size, use of iterative reconstruction technique) 2010 [email or web address]- All Rights Reserved Reading location - IP/workstation name: [email or web address]
--- NOTE | 2017-12-08 13:44 | ER Document Report ---
ED General - General Chief Complaint: Headache Stated Complaint: HEADACHE/URINARY ISSUES Time Seen by Provider: 12/08/17 12:25 Notes: Patient says that she is having pains in her head, in the back going forward to the front for the past week or 2. She is also having pain in her back and her neck around to the front, as well. Those symptoms have seemingly increased in the past 3 days. She went to her local career development coordinator/teacher who injected her right eye. She has a history of macular degeneration and receiving such injections in the past. 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 Also says that she has had problems with her ears and saw her ENT doctor a month or so ago who "blew out" her ears and left the right one feeling like it was about to explode. Patient says that she is feeling dehydrated and dry, mouth dry, skin dry and scaly. Also's notes burning with urination and think she may have a UTI. Sees Dr. Chand for renal insufficiency and they have discussed her going on dialysis but she says she is going to decline doing so. Patient has not had any fever. TRAVEL OUTSIDE OF THE [place] IN LAST 30 DAYS: No - Related Data Allergies/Adverse Reactions: Sulfa (Sulfonamide Antibiotics) Allergy (Intermediate, Verified 11/03/17 10:16) Generalized Itching morphine [Morphine] Adverse Reaction (Intermediate, Verified 11/03/17 10:16) Severe Nausea Past Medical History - Social History Smoking Status: Unknown if Ever Smoked Family History: Reviewed & Not Pertinent, CAD, Hypertension Patient has suicidal ideation: No Patient has homicidal ideation: No - Past Medical History Cardiac Medical History: Reports: Hx Congestive Heart Failure, Hx Coronary Artery Disease, Hx Hypertension - medicated Pulmonary Medical History: Reports: Hx Bronchitis, Hx Sleep Apnea Neurological Medical History: Denies: Hx Seizures Endocrine Medical History: Reports: Hx Hypothyroidism Renal/ Medical History: Reports: Hx End Stage Renal Disease - Stage IV, no plan for dialysis, Hx Renal Insufficiency Malignancy Medical History: Reports: Hx Skin Cancer - Squamous cell GI Medical History: Reports: Hx Diverticulitis, Hx Gastritis, Hx Gastroesophageal Reflux Disease - With hiatal hernia, Hx Colonoscopy, Hx Endoscopy Musculoskeltal Medical History: Reports Hx Arthritis, Reports Hx Musculoskeletal Deformity, Reports Hx Musculoskeletal Trauma Past Surgical History: Reports: Hx Appendectomy, Hx Cholecystectomy, Hx Hysterectomy, Hx Orthopedic Surgery - stas tkr x 2 , foot , hand, carpal tunnel surgery of the right wrist, Hx Pancreatic Surgery, Hx Thyroid Surgery, Hx Tonsillectomy, Other - EGD, hemorrhoidectomy, colonoscopy, cataract extraction - Immunizations Hx Diphtheria, Pertussis, Tetanus Vaccination: No Hx Pneumococcal Vaccination: 03/20/10 Review of Systems - Review of Systems Notes: REVIEW OF SYSTEMS: CONSTITUTIONAL : Denies fever. EENT: See HPI. CARDIOVASCULAR: Denies chest pain. RESPIRATORY: Denies cough, chest congestion, or shortness of breath. GASTROINTESTINAL: Denies abdominal pain or nausea, vomiting, or diarrhea. Hospitalized here for diverticulitis in the past months. GENITOURINARY: Has burning with urination, but otherwise no other UTI symptoms such as blood, etc. MUSCULOSKELETAL: Denies back or neck pain. Denies joint pain or swelling. SKIN: Denies rash or skin lesions. NEUROLOGICAL: Denies LOC or altered mental status. Has headache. Denies sensory loss or motor deficits. ALL OTHER SYSTEMS REVIEWED AND NEGATIVE. Physical Exam - Vital signs Vitals: Temp Resp BP Pulse Ox 98.2 F 18 174/87 H 97 12/08/17 08:22 12/08/17 08:22 12/08/17 08:22 12/08/17 08:22 Interpretation: Normal, Hypertensive - Minimal - Notes Notes: PHYSICAL EXAMINATION: GENERAL: Well-appearing, in no acute distress. Vital signs essentially normal. HEAD: Atraumatic, normocephalic. EYES: Pupils equal round and reactive to light, extraocular movements intact. ENT: oropharynx clear without exudates. Moist mucous membranes. Ear exam normal. NECK: Normal range of motion, supple. LUNGS: Breath sounds clear and equal bilaterally. HEART: Regular rate and rhythm without murmurs. ABDOMEN: Soft, nontender. No guarding or rebound. No masses. BACK: No tenderness throughout entire back. EXTREMITIES: Normal range of motion without pain. NEUROLOGICAL: Normal speech, normal gait. Normal sensory, motor, and reflex exams. Awake, alert, and oriented x3. Cranial nerves normal. PSYCH: Normal mood, normal affect. SKIN: Warm, dry, no rashes. Course - Re-evaluation Re-evalutation: 12/08/17 13:43 I have gone over the patient's labs which are all normal with exception of mild renal insufficiency. She has nothing that would suggest that she is dehydrated or needs to have IV fluids. Went over her MRI results with the patient, as well. - Vital Signs Vital signs: Temp Pulse Resp BP Pulse Ox 98.4 F 63 14 151/86 H 98 12/08/17 14:09 12/08/17 14:09 12/08/17 14:09 12/08/17 14:09 12/08/17 14:09 - Laboratory Result Diagrams: 12/08/17 08:12 12/08/17 08:12 Laboratory results interpreted by me: 12/08/17 12/08/17 08:12 08:12 RDW 14.3 H Potassium 5.1 H BUN 24 H Creatinine 2.06 H Est GFR ( Amer) 28 L Est GFR (Non-Af Amer) 23 L - Diagnostic Test Radiology results interpreted by me: CT scan of the brain shows a possible mass of the pituitary gland. Pituitary looks slightly enlarged for patient's age. MRI may be necessary for further clarification. Patient is being referred to her primary care physician, Dr. Lugo, to get that study and determine what course to follow after that. - EKG Interpretation by Me EKG shows normal: Sinus rhythm Rate: Normal Rhythm: NSR Discharge - Discharge Clinical Impression: Headache, Back pain, Neck pain, Eye pain, Ear pain, Renal insufficiency, Enlarged pituitary gland Condition: Stable Disposition: HOME, SELF-CARE Referrals: TIERA LUGO MD [Primary Care Provider] - Follow up in 1 week
[2017-12-08 14:10] VITALS: BP 151/86
== END 2017-12-08 14:09 | disposition home or self-care (01) ==
LOC: ER 07:37
DX: R51 Headache (principal); M54.9 Dorsalgia, unspecified; M54.2 Cervicalgia; H57.10 Ocular pain, unspecified eye; H92.09 Otalgia, unspecified ear; N28.9 Disorder of kidney and ureter, unspecified; E23.6 Other disorders of pituitary gland; H54.62 Unqualified visual loss, left eye, normal vision right eye; I25.10 Atherosclerotic heart disease of native coronary artery without angina pectoris; I10 Essential (primary) hypertension
CPT/HCPCS: 93005; 99284; 36415; 85025; 80053; 81001; 70450; 93010; A9270

== ENCOUNTER → 2017-12-22 | Outpatient (CLI) | payer MEDICARE, OTHER ==
[2017-12-22 07:50] LABS: ANION GAP 10 (5-19); BLOOD UREA NITROGEN 27 mg/dL (7-20); CALCIUM 9.6 mg/dL (8.4-10.2); CARBON DIOXIDE 28 mmol/L (22-30); CHLORIDE 104 mmol/L (98-107); GLUCOSE 89 mg/dL (75-110); PHOSPHORUS 4.5 mg/dL (2.5-4.5); SODIUM 141.5 mmol/L (137-145)
[2017-12-22 07:56] LABS: ABSOLUTE BASOPHILS # (AUTO) 0.1 10^3/uL (0.0-0.2); ABSOLUTE EOSINOPHILS # (AUTO) 0.1 10^3/uL (0.0-0.6); ABSOLUTE LYMPHOCYTES (AUTO) 1.3 10^3/uL (0.5-4.7); ABSOLUTE MONOCYTES (AUTO) 0.5 10^3/uL (0.1-1.4); ABSOLUTE NEUT (AUTO) 2.9 10^3/uL (1.7-8.2); BASOPHILS % (AUTO) 1.3 % (0-2); EOSINOPHILS % (AUTO) 2.4 % (0-6); HEMATOCRIT 39.1 % (36.0-47.0); LYMPHOCYTES % (AUTO) 26.2 % (13-45); MEAN CORPUSCULAR HEMOGLOBIN 28.6 pg (27.0-33.4); MEAN CORPUSCULAR HGB CONC 33.2 g/dL (32.0-36.0); MEAN CORPUSCULAR VOLUME 86 fl (80-97); MONOCYTES % (AUTO) 11.2 % (3-13); PLATELET COUNT 180 10^3/uL (150-450); RED BLOOD COUNT 4.54 10^6/uL (3.72-5.28); RED CELL DISTRIBUTION WIDTH 14.4 % (11.5-14.0); SEGMENTED NEUTROPHILS % (AUTO) 58.9 % (42-78); TOTAL CELLS COUNTED % (AUTO) 100 %; WHITE BLOOD COUNT 4.9 10^3/uL (4.0-10.5)
== END ==
LOC: OD 07:06
PROVIDERS: ATTEND Internal Medicine Nephrology
DX: N18.4 Chronic kidney disease, stage 4 (severe) (principal); D63.1 Anemia in chronic kidney disease; N25.81 Secondary hyperparathyroidism of renal origin; E83.39 Other disorders of phosphorus metabolism
CPT/HCPCS: 36415; 80048; 83970; 84100; 85025

== ENCOUNTER → 2018-03-27 | Outpatient (CLI) | payer MEDICARE, OTHER ==
[2018-03-27 08:38] LABS: ANION GAP 7 (5-19); BLOOD UREA NITROGEN 36 mg/dL (7-20); CALCIUM 9.6 mg/dL (8.4-10.2); CARBON DIOXIDE 25 mmol/L (22-30); CHLORIDE 107 mmol/L (98-107); GLUCOSE 96 mg/dL (75-110); POTASSIUM 5.5 mmol/L (3.6-5.0); SODIUM 139.3 mmol/L (137-145)
[2018-03-27 10:25] LABS: APPEARANCE,URINE CLEAR; BILIRUBIN,URINE NEGATIVE (NEGATIVE); COLOR,URINE STRAW; GLUCOSE, URINE NEGATIVE (NEGATIVE); KETONES,URINE NEGATIVE (NEGATIVE); LEUKOCYTE ESTERASE,URINE NEGATIVE (NEGATIVE); NITRITE,URINE NEGATIVE (NEGATIVE); PROTEIN,URINE NEGATIVE (NEGATIVE); UROBILINOGEN,URINE NEGATIVE mg/dL (<2.0)
[2018-03-27 10:33] LABS: URINE SPECIFIC GRAVITY 1.011
[2018-03-28 14:40] LABS: CREATININE URINE 73.2 mg/dL (Not Estab.); MICROALBUMIN URINE <3.0 ug/mL (Not Estab.)
== END ==
LOC: OD 07:22
PROVIDERS: ATTEND Internal Medicine Nephrology
DX: N18.4 Chronic kidney disease, stage 4 (severe) (principal); N25.81 Secondary hyperparathyroidism of renal origin
CPT/HCPCS: 36415; 80048; 81001; 82040; 82043; 82570; 83970

== ENCOUNTER → 2018-03-29 | Outpatient (CLI) | payer MEDICARE, OTHER | LOC: OD 07:16 | PROVIDERS: ATTEND Internal Medicine Nephrology | DX: N18.9 Chronic kidney disease, unspecified (principal); D50.9 Iron deficiency anemia, unspecified | CPT/HCPCS: 36415; 84132 ==

== ENCOUNTER 2018-04-29 06:38 | Emergency (ER) | payer MEDICARE, OTHER ==
--- NOTE | 2018-04-29 07:10 | ER Document Report ---
ED General - General Chief Complaint: Abdominal Pain Stated Complaint: ABDOMINAL PAIN,WHOLE BODY PAIN Time Seen by Provider: 04/29/18 07:07 TRAVEL OUTSIDE OF THE [place] IN LAST 30 DAYS: No - HPI Notes: Patient is a 83-year-old female that presents to the emergency department for chief complaint of abdominal pain. Patient reports acute onset of epigastric abdominal pain 6 days ago. The pain has been constant but waxes and wanes. She denies any aggravating factors. She states that she gets some relief when she is sitting up. The pain is now sharp and radiating across her upper abdomen into her bilateral lateral chest wall. She denies any chest pain. She states she gets some shortness of breath when she is lying down. She reports associated nausea but denies any vomiting diarrhea fevers or chills. She denies any blood in her stool and states it is chronically black because of taking iron pills. Past Medical History: CKD Past Surgical History: Cholecystectomy, appendectomy, hysterectomy, bilateral TKA Social History: Denies drugs alcohol and tobacco Family History: Reviewed and noncontributory for presenting illness Allergies: Reviewed, see documented allergy list. REVIEW OF SYSTEMS: CONSTITUTIONAL : No fever No chills No diaphoresis No recent illness EENT: No vision changes No congestion No sore throat CARDIOVASCULAR: No chest pain No palpitations RESPIRATORY: shortness of breath No cough No difficulty breathing GASTROINTESTINAL: abdominal pain nausea No vomiting No diarrhea GENITOURINARY: No dysuria No hematuria No difficulty urinating MUSCULOSKELETAL: No back pain No leg pain No arm pain SKIN: No rashes No lesions LYMPHATIC: No swollen, enlarged glands. NEUROLOGICAL: No lightheadedness No headache No weakness No paresthesias PSYCHIATRIC: No anxiety No depression PHYSICAL EXAMINATION: Vital signs reviewed, nursing noted reviewed. GENERAL: Well-appearing, well-nourished and in no acute distress. HEAD: Atraumatic, normocephalic. EYES: Eyes appear normal, extraocular movements intact, sclera anicteric, conjunctiva are normal. ENT: nares patent, thrush on tongue. dry mucous membranes. NECK: Normal range of motion, supple without lymphadenopathy LUNGS: Breath sounds clear to auscultation bilaterally and equal. No wheezes rales or rhonchi. HEART: Regular rate and rhythm without murmurs ABDOMEN: Soft, diffuse upper abdominal tenderness worse in the left upper quadrant, normoactive bowel sounds. No rebound, guarding, or rigidity. No masses appreciated. EXTREMITIES: Nontender, good range of motion, no pitting or edema. NEUROLOGICAL: No focal neurological deficits. Moves all extremities spontaneously Motor and sensory grossly intact on exam. PSYCH: Normal mood, normal affect. SKIN: Warm, Dry, normal turgor, no rashes or lesions noted on exposed skin - Related Data Allergies/Adverse Reactions: Sulfa (Sulfonamide Antibiotics) Allergy (Intermediate, Verified 04/29/18 07:01) Generalized Itching Past Medical History - Social History Smoking Status: Never Smoker Chew tobacco use (# tins/day): No Frequency of alcohol use: None Drug Abuse: None Family History: Reviewed & Not Pertinent, CAD, Hypertension Patient has suicidal ideation: No Patient has homicidal ideation: No - Past Medical History Cardiac Medical History: Reports: Hx Congestive Heart Failure, Hx Coronary Artery Disease, Hx Hypertension - medicated Pulmonary Medical History: Reports: Hx Bronchitis, Hx Sleep Apnea Neurological Medical History: Denies: Hx Seizures Endocrine Medical History: Reports: Hx Hypothyroidism Renal/ Medical History: Reports: Hx End Stage Renal Disease - Stage IV, no plan for dialysis, Hx Renal Insufficiency. Denies: Hx Peritoneal Dialysis Malignancy Medical History: Reports: Hx Skin Cancer - Squamous cell GI Medical History: Reports: Hx Diverticulitis, Hx Gastritis, Hx Gastroesophageal Reflux Disease - With hiatal hernia, Hx Colonoscopy, Hx Endoscopy Musculoskeletal Medical History: Reports Hx Arthritis, Reports Hx Musculoskeletal Deformity, Reports Hx Musculoskeletal Trauma Past Surgical History: Reports: Hx Appendectomy, Hx Cholecystectomy, Hx Hysterectomy, Hx Orthopedic Surgery - stas tkr x 2 , foot , hand, carpal tunnel surgery of the right wrist, Hx Pancreatic Surgery, Hx Thyroid Surgery, Hx Tonsillectomy, Other - EGD, hemorrhoidectomy, colonoscopy, cataract extraction - Immunizations Hx Diphtheria, Pertussis, Tetanus Vaccination: No Hx Pneumococcal Vaccination: 03/20/10 Review of Systems - Review of Systems Notes: Dictated Physical Exam - Vital signs Vitals: Temp Pulse Resp BP Pulse Ox 97.2 F 75 18 169/79 H 98 04/29/18 06:46 04/29/18 06:46 04/29/18 06:46 04/29/18 06:46 04/29/18 06:46 - Notes Notes: Dictated Course - Re-evaluation Re-evalutation: 04/29/18 07:32 Nursing notes reviewed. Patient's EKG shows no acute ischemia. Patient was given IV hydration, pain medicine and antiemetics for symptomatic management 04/29/18 10:08 Patient reevaluated after second dose of morphine and did have improvement of her pain. She has been seeing pain management in [place] who has her taking Ultram at home. She states she has enough of her prescription to last until a follow-up appointment. Her lab work today is unremarkable. She has chronic baseline elevation of BUN and creatinine. Her potassium is 5.3 however she has history of slight elevation of potassium because of renal insufficiency and she has no acute EKG changes today. She was given IV hydration for her slight elevation in potassium. Patient will be started on nystatin swish and spit for oral thrush. She will follow with her primary care doctor and pain management for further evaluation in the next few days. She will return for new or worsening symptoms. Her and her are in agreement with this plan and she was stable at discharge. Laboratory 04/29/18 04/29/18 04/29/18 08:30 08:30 08:30 WBC 5.5 RBC 4.52 Hgb 13.0 Hct 40.0 MCV 89 MCH 28.7 MCHC 32.5 RDW 15.2 H Plt Count 170 Seg Neutrophils % 73.5 Lymphocytes % 15.0 Monocytes % 9.4 Eosinophils % 1.1 Basophils % 1.0 Absolute Neutrophils 4.0 Absolute Lymphocytes 0.8 Absolute Monocytes 0.5 Absolute Eosinophils 0.1 Absolute Basophils 0.1 Sodium 139.7 Potassium 5.3 H Chloride 105 Carbon Dioxide 21 L Anion Gap 14 BUN 29 H Creatinine 2.30 H Est GFR ( Amer) 25 L Est GFR (Non-Af Amer) 20 L Glucose 88 Calcium 9.5 Total Bilirubin 0.6 Direct Bilirubin 0.3 Neonat Total Bilirubin Not Reportable Neonat Direct Bilirubin Not Reportable Neonat Indirect Bili Not Reportable AST 27 ALT 23 Alkaline Phosphatase 56 Troponin I 0.025 Total Protein 6.6 Albumin 4.2 Lipase 296.5 Urine Color Urine Appearance Urine pH Ur Specific [place] Urine Protein Urine Glucose (UA) Urine Ketones Urine Blood Urine Nitrite Urine Bilirubin Urine Urobilinogen Ur Leukocyte Esterase Urine WBC (Auto) Urine RBC (Auto) U Hyaline Cast (Auto) Urine Bacteria (Auto) Squamous Epi Cells Auto Urine Mucus (Auto) Urine Ascorbic Acid 04/29/18 08:30 WBC RBC Hgb Hct MCV MCH MCHC RDW Plt Count Seg Neutrophils % Lymphocytes % Monocytes % Eosinophils % Basophils % Absolute Neutrophils Absolute Lymphocytes Absolute Monocytes Absolute Eosinophils Absolute Basophils Sodium Potassium Chloride Carbon Dioxide Anion Gap BUN Creatinine Est GFR ( Amer) Est GFR (Non-Af Amer) Glucose Calcium Total Bilirubin Direct Bilirubin Neonat Total Bilirubin Neonat Direct Bilirubin Neonat Indirect Bili AST ALT Alkaline Phosphatase Troponin I Total Protein Albumin Lipase Urine Color STRAW Urine Appearance CLEAR Urine pH 5.0 Ur Specific [place] 1.008 Urine Protein NEGATIVE Urine Glucose (UA) NEGATIVE Urine Ketones NEGATIVE Urine Blood NEGATIVE Urine Nitrite NEGATIVE Urine Bilirubin NEGATIVE Urine Urobilinogen NEGATIVE Ur Leukocyte Esterase NEGATIVE Urine WBC (Auto) 0 Urine RBC (Auto) 0 U Hyaline Cast (Auto) 5 Urine Bacteria (Auto) TRACE Squamous Epi Cells Auto 1 Urine Mucus (Auto) RARE Urine Ascorbic Acid NEGATIVE Chest X-Ray 04/29/18 07:07 IMPRESSION: No acute cardiopulmonary findings. Abdomen/Pelvis CT 04/29/18 07:29 IMPRESSION: 1. No acute or suspicious abdominopelvic abnormality. 2. Diverticulosis without evidence of active diverticulitis. 3. Atherosclerosis. - Vital Signs Vital signs: Temp Pulse Resp BP Pulse Ox 97.2 F 75 9 L 143/82 H 97 04/29/18 06:46 04/29/18 06:46 04/29/18 09:01 04/29/18 09:01 04/29/18 09:01 - Laboratory Result Diagrams: 04/29/18 08:30 04/29/18 08:30 Laboratory results interpreted by me: 04/29/18 04/29/18 08:30 08:30 RDW 15.2 H Potassium 5.3 H Carbon Dioxide 21 L BUN 29 H Creatinine 2.30 H Est GFR ( Amer) 25 L Est GFR (Non-Af Amer) 20 L - EKG Interpretation by Me Additional EKG results interpreted by me: 04/29/18 07:09 Interpreted by myself 0701:Normal sinus rhythm, rate 73, normal axis, no ectopy, no significant change from 12/08/17 Discharge - Discharge Clinical Impression: Oral thrush Abdominal pain Qualifiers: Abdominal location: upper abdomen, unspecified Qualified Code(s): R10.10 - Upper abdominal pain, unspecified Condition: Stable Disposition: HOME, SELF-CARE Instructions: Abdominal Pain ([facility]), Oral Thrush ([facility]) Additional Instructions: Please return to the emergency department if you have any worsening, or concern of your symptoms. Please return to the emergency department if you develop chest pain, difficulty breathing, severe abdominal pain, or ongoing vomiting. Please follow-up with your primary care physician in 2-3 days and any other recommended physicians. If prescribed, take all medications as directed. If you have any questions or concerns do not hesitate to return the emergency department for evaluation. Follow-up with your pain management doctor in 2-3 days Prescriptions: Nystatin [Mycostatin 911999 Unit/1 ml Susp 60 ml Btl] 4 - 6 ml PO QID 14 Days # 350 ml Referrals: CHRISTOPHER AHUMADA MD [Primary Care Provider] - Follow up as needed
[2018-04-29] MEDS ORDERED: MORPHINE SULFATE 10 MG/ML INJ IV ONE ×2 (07:32→09:30)
[2018-04-29] MEDS ORDERED: NORMAL SALINE 1000 ML 1,000 ML IV ONE (07:32)
[2018-04-29] MEDS ORDERED: ONDANSETRON HCL INJ/PF 4 MG/2 ML SDV IV ONE (07:32)
--- NOTE | 2018-04-29 07:50 | RADIOLOGY REPORT (SQ) ---
EXAM DESCRIPTION: XR CHEST 1 VIEW COMPLETED DATE/TME: 04/29/2018 07:07 CLINICAL HISTORY: 83 years Female, chest pain COMPARISON:04/01/2017 NUMBER OF VIEWS/TECHNIQUE: 1/AP FINDINGS: Adequate lung volume, clear parenchyma, normal cardiac silhouette, atherosclerosis, and intact bony thorax. IMPRESSION: No acute cardiopulmonary findings.
--- NOTE | 2018-04-29 07:57 | EKG REPORT ---
SEVERITY:- ABNORMAL ECG - SINUS RHYTHM PROBABLE ANTEROLATERAL INFARCT, OLD : Confirmed by: Lloyd Lockwood MD 29-Apr-2018 07:56:43
--- NOTE | 2018-04-29 08:30 | RADIOLOGY REPORT (SQ) ---
EXAM DESCRIPTION: CT ABD/PELVIS NO ORAL OR IV COMPLETED DATE/TIME: 04/29/2018 8:13 am REASON FOR STUDY: abdominal pain COMPARISON: 11/03/2017. TECHNIQUE: CT scan of the abdomen and pelvis performed without intravenous or oral contrast. Images reviewed with lung, soft tissue, and bone windows. Reconstructed coronal and sagittal MPR images revi ewed. All images stored on PACS. All CT scanners at this facility use dose modulation, iterative reconstruction, and/or weight based d osing when appropriate to reduce radiation dose to as low as reasonably achievable (ALARA). [facility]: Dose Right [facility]: CareDose [facility]: Dose Right [facility]: Teradose 4D [facility]: [employer] RADIATION DOSE: CT Rad equipment meets quality standard of care and radiation dose reduction techniq ues were employed. CTDIvol: 13.0 mGy. DLP: 720 mGy-cm.mGy. LIMITATIONS: Limited clinical information. FINDINGS: LOWER CHEST: Clear lung bases. Coronary calcification is at least moderate. Small hiatal hernia. NON-CONTRASTED LIVER, SPLEEN, ADRENALS: Chronic tiny low-density subcentimeter liver cysts are suspec missy. No developing lesion. Spleen and adrenals unremarkable. PANCREAS: No masses. No peripancreatic inflammatory changes. GALLBLADDER: Surgically absent. RIGHT KIDNEY AND URETER: Exophytic cyst measuring just under 2 cm, chronic. No stones or evidence of obstruction. LEFT KIDNEY AND URETER: Cysts are present, as before. No stones or evidence of obstruction. AORTA AND RETROPERITONEUM: Dense atherosclerotic calcification without aneurysm or retroperitoneal ma ss. BOWEL AND PERITONEAL CAVITY: Diverticulosis in the sigmoid. No active inflammation to suggest divert iculitis. No bowel obstruction evident. No bowel wall thickening. No ascites or abnormal gas. APPENDIX: Not visualized. PELVIS, BLADDER, AND ABDOMINAL WALL:Fat containing right inguinal hernia, chronic. Bladder unremarka ble. No pelvic mass or free fluid. BONES: Osteopenia. Spondylosis. No fracture or gross bone lesion. OTHER: No other significant finding. IMPRESSION: 1. No acute or suspicious abdominopelvic abnormality. 2. Diverticulosis without evidenc e of active diverticulitis. 3. Atherosclerosis. TECHNICAL DOCUMENTATION: JOB ID: [id number] Quality ID # [id number]: Final reports with documentation of one or more dose reduction techniques (e.g., Au tomated exposure control, adjustment of the mA and/or kV according to patient size, use of iterative reconstruction technique) 2010 [employer]- All Rights Reserved Reading location - IP/workstation name: [email or web address]
[2018-04-29 08:55] LABS: ABSOLUTE BASOPHILS # (AUTO) 0.1 10^3/uL (0.0-0.2); ABSOLUTE EOSINOPHILS # (AUTO) 0.1 10^3/uL (0.0-0.6); ABSOLUTE LYMPHOCYTES (AUTO) 0.8 10^3/uL (0.5-4.7); ABSOLUTE MONOCYTES (AUTO) 0.5 10^3/uL (0.1-1.4); EOSINOPHILS % (AUTO) 1.1 % (0-6); MEAN CORPUSCULAR HEMOGLOBIN 28.7 pg (27.0-33.4); MEAN CORPUSCULAR HGB CONC 32.5 g/dL (32.0-36.0); MEAN CORPUSCULAR VOLUME 89 fl (80-97); MONOCYTES % (AUTO) 9.4 % (3-13); PLATELET COUNT 170 10^3/uL (150-450); RED BLOOD COUNT 4.52 10^6/uL (3.72-5.28); RED CELL DISTRIBUTION WIDTH 15.2 % (11.5-14.0); SEGMENTED NEUTROPHILS % (AUTO) 73.5 % (42-78); TOTAL CELLS COUNTED % (AUTO) 100 %; WHITE BLOOD COUNT 5.5 10^3/uL (4.0-10.5)
[2018-04-29 09:05] LABS: ALANINE AMINOTRANSFERASE 23 U/L (9-52); ALBUMIN 4.2 g/dL (3.5-5.0); ALKALINE PHOSPHATASE 56 U/L (38-126); ANION GAP 14 (5-19); ASPARTATE AMINO TRANSFERASE 27 U/L (14-36); BILIRUBIN,DIRECT 0.3 mg/dL (0.0-0.4); BILIRUBIN,TOTAL 0.6 mg/dL (0.2-1.3); BLOOD UREA NITROGEN 29 mg/dL (7-20); CALCIUM 9.5 mg/dL (8.4-10.2); CARBON DIOXIDE 21 mmol/L (22-30); CHLORIDE 105 mmol/L (98-107); GLUCOSE 88 mg/dL (75-110); LIPASE 296.5 U/L (23-300); POTASSIUM 5.3 mmol/L (3.6-5.0); SODIUM 139.7 mmol/L (137-145); TOTAL PROTEIN 6.6 g/dL (6.3-8.2)
[2018-04-29 09:45] LABS: APPEARANCE,URINE CLEAR; BILIRUBIN,URINE NEGATIVE (NEGATIVE); COLOR,URINE STRAW; GLUCOSE, URINE NEGATIVE (NEGATIVE); KETONES,URINE NEGATIVE (NEGATIVE); LEUKOCYTE ESTERASE,URINE NEGATIVE (NEGATIVE); NITRITE,URINE NEGATIVE (NEGATIVE); PROTEIN,URINE NEGATIVE (NEGATIVE); URINE SPECIFIC GRAVITY 1.008; UROBILINOGEN,URINE NEGATIVE mg/dL (<2.0)
[2018-04-29 10:10] VITALS: BP 132/80
== END 2018-04-29 10:20 | disposition home or self-care (01) ==
LOC: ER 06:38
DX: B37.0 Candidal stomatitis (principal); R10.10 Upper abdominal pain, unspecified; M79.10 Myalgia, unspecified site; Z90.49 Acquired absence of other specified parts of digestive tract
CPT/HCPCS: 93005; 96376; 99285; 96361; 96374; 96375; 36415; 83690; 85025; 80053; 81001; 84484; 71045; 74176; 93010; J2270; J2405; J7030

== ENCOUNTER → 2018-06-26 | Outpatient (CLI) | payer MEDICARE, OTHER ==
--- NOTE | 2018-06-26 09:41 | RADIOLOGY REPORT (SQ) ---
EXAM DESCRIPTION: U/S RETROPERITON (RENAL/AORTA) COMPLETED DATE/TIME: 06/26/2018 9:08 am REASON FOR STUDY: CKD IV (N18.4), URINARY RETENTION (R33.9) N18.4 CHRONIC KIDNEY DISEASE, STAGE 4 ( SEVERE) COMPARISON: CT abdomen pelvis 04/29/2018 Bilateral renal ultrasound 07/01/2015 TECHNIQUE: Dynamic and static grayscale images acquired of the kidneys and bladder and recorded on P ACS. Additional selected color Doppler and spectral images recorded. LIMITATIONS: None. FINDINGS: RIGHT KIDNEY: 6.2 cm in length. Diffusely small and echogenic with cortical thinning from chronic renal disease. 2.5 cm simple cyst right mid-pole kidney, stable. No stones or hydronephros is. No solid masses. LEFT KIDNEY: 9 cm in length. Diffusely small and echogenic with cortical thinning from medical truong l disease. 2 cm left lower pole renal cortical cyst. No stones or hydronephrosis. No solid masses. BLADDER: Prevoid bladder volume 29 mL, postvoid bladder volume 26 mL. OTHER FINDINGS: No other significant finding. IMPRESSION: No significant bladder residua. Small echogenic kidneys with cortical thinning from chronic medical renal disease. Bilateral renal c ortical cysts. TECHNICAL DOCUMENTATION: JOB ID: [id number] [employer]- All Rights Reserved Reading location - IP/workstation name: [email or web address]
== END ==
LOC: RAD 07:41
PROVIDERS: ATTEND Internal Medicine Nephrology
DX: N18.4 Chronic kidney disease, stage 4 (severe) (principal); Q61.02 Congenital multiple renal cysts
CPT/HCPCS: 76770

== ENCOUNTER → 2018-07-03 | Outpatient (CLI) | payer MEDICARE, OTHER ==
[2018-07-03 08:21] LABS: ABSOLUTE BASOPHILS # (AUTO) 0.1 10^3/uL (0.0-0.2); ABSOLUTE EOSINOPHILS # (AUTO) 0.1 10^3/uL (0.0-0.6); ABSOLUTE LYMPHOCYTES (AUTO) 0.9 10^3/uL (0.5-4.7); ABSOLUTE MONOCYTES (AUTO) 0.6 10^3/uL (0.1-1.4); ABSOLUTE NEUT (AUTO) 4.2 10^3/uL (1.7-8.2); BASOPHILS % (AUTO) 0.9 % (0-2); EOSINOPHILS % (AUTO) 1.7 % (0-6); HEMATOCRIT 37.6 % (36.0-47.0); HEMOGLOBIN 12.5 g/dL (12.0-15.5); LYMPHOCYTES % (AUTO) 15.9 % (13-45); MEAN CORPUSCULAR HEMOGLOBIN 31.2 pg (27.0-33.4); MEAN CORPUSCULAR HGB CONC 33.2 g/dL (32.0-36.0); MEAN CORPUSCULAR VOLUME 94 fl (80-97); MONOCYTES % (AUTO) 9.4 % (3-13); PLATELET COUNT 181 10^3/uL (150-450); RED CELL DISTRIBUTION WIDTH 16.5 % (11.5-14.0); SEGMENTED NEUTROPHILS % (AUTO) 72.1 % (42-78); TOTAL CELLS COUNTED % (AUTO) 100 %; WHITE BLOOD COUNT 5.9 10^3/uL (4.0-10.5)
[2018-07-03 08:33] LABS: APPEARANCE,URINE CLEAR; BILIRUBIN,URINE NEGATIVE (NEGATIVE); COLOR,URINE YELLOW; GLUCOSE, URINE NEGATIVE (NEGATIVE); KETONES,URINE NEGATIVE (NEGATIVE); LEUKOCYTE ESTERASE,URINE NEGATIVE (NEGATIVE); NITRITE,URINE NEGATIVE (NEGATIVE); PROTEIN,URINE NEGATIVE (NEGATIVE); UROBILINOGEN,URINE NEGATIVE mg/dL (<2.0)
[2018-07-03 08:42] LABS: BLOOD UREA NITROGEN 36 mg/dL (7-20); CALCIUM 9.4 mg/dL (8.4-10.2); GLUCOSE 91 mg/dL (75-110)
[2018-07-03 08:43] LABS: ALBUMIN 4.2 g/dL (3.5-5.0); ANION GAP 8 (5-19); CARBON DIOXIDE 24 mmol/L (22-30); CHLORIDE 107 mmol/L (98-107); IRON(TIBC) 70.7 ug/dL (37-170); PHOSPHORUS 3.5 mg/dL (2.5-4.5); SODIUM 139.2 mmol/L (137-145)
[2018-07-04 11:39] LABS: CREATININE URINE 93.1 mg/dL (Not Estab.); MICROALBUMIN URINE 11.9 ug/mL (Not Estab.)
== END ==
LOC: OD 07:33
PROVIDERS: ATTEND Internal Medicine Nephrology
DX: N18.4 Chronic kidney disease, stage 4 (severe) (principal); D63.1 Anemia in chronic kidney disease; E83.39 Other disorders of phosphorus metabolism; N25.81 Secondary hyperparathyroidism of renal origin
CPT/HCPCS: 36415; 80048; 81001; 82040; 82043; 82306; 82570; 82728; 83540; 83550; 83735; 83970; 84100; 85025

== ENCOUNTER → 2018-10-19 | Outpatient (CLI) | payer MEDICARE, OTHER ==
[2018-10-19 08:06] LABS: ANION GAP 8 (5-19); BLOOD UREA NITROGEN 31 mg/dL (7-20); CALCIUM 9.4 mg/dL (8.4-10.2); CARBON DIOXIDE 28 mmol/L (22-30); CHLORIDE 103 mmol/L (98-107); GLUCOSE 90 mg/dL (75-110); SODIUM 139.2 mmol/L (137-145)
[2018-10-19 08:09] LABS: ABSOLUTE EOSINOPHILS # (AUTO) 0.1 10^3/uL (0.0-0.6); ABSOLUTE LYMPHOCYTES (AUTO) 1.1 10^3/uL (0.5-4.7); ABSOLUTE MONOCYTES (AUTO) 0.5 10^3/uL (0.1-1.4); ABSOLUTE NEUT (AUTO) 2.9 10^3/uL (1.7-8.2); EOSINOPHILS % (AUTO) 2.8 % (0-6); HEMATOCRIT 40.9 % (36.0-47.0); HEMOGLOBIN 13.5 g/dL (12.0-15.5); LYMPHOCYTES % (AUTO) 23.6 % (13-45); MEAN CORPUSCULAR HEMOGLOBIN 29.3 pg (27.0-33.4); MEAN CORPUSCULAR VOLUME 89 fl (80-97); MONOCYTES % (AUTO) 10.9 % (3-13); PLATELET COUNT 151 10^3/uL (150-450); RED BLOOD COUNT 4.59 10^6/uL (3.72-5.28); RED CELL DISTRIBUTION WIDTH 13.7 % (11.5-14.0); SEGMENTED NEUTROPHILS % (AUTO) 61.7 % (42-78); TOTAL CELLS COUNTED % (AUTO) 100 %; WHITE BLOOD COUNT 4.7 10^3/uL (4.0-10.5)
== END ==
LOC: OD 07:13
PROVIDERS: ATTEND Internal Medicine Nephrology
DX: N18.4 Chronic kidney disease, stage 4 (severe) (principal); I12.9 Hypertensive chronic kidney disease with stage 1 through stage 4 chronic kidney disease, or unspecified chronic kidney disease
CPT/HCPCS: 36415; 80048; 83970; 85025

== ENCOUNTER → 2019-01-25 | Outpatient (CLI) | payer MEDICARE, OTHER ==
[2019-01-25 07:48] LABS: ABSOLUTE BASOPHILS # (AUTO) 0.1 10^3/uL (0.0-0.2); ABSOLUTE EOSINOPHILS # (AUTO) 0.1 10^3/uL (0.0-0.6); ABSOLUTE LYMPHOCYTES (AUTO) 1.1 10^3/uL (0.5-4.7); ABSOLUTE MONOCYTES (AUTO) 0.8 10^3/uL (0.1-1.4); ABSOLUTE NEUT (AUTO) 4.1 10^3/uL (1.7-8.2); BASOPHILS % (AUTO) 0.9 % (0-2); EOSINOPHILS % (AUTO) 2.2 % (0-6); HEMATOCRIT 38.3 % (36.0-47.0); HEMOGLOBIN 12.6 g/dL (12.0-15.5); LYMPHOCYTES % (AUTO) 17.7 % (13-45); MEAN CORPUSCULAR HEMOGLOBIN 28.9 pg (27.0-33.4); MEAN CORPUSCULAR HGB CONC 32.8 g/dL (32.0-36.0); MEAN CORPUSCULAR VOLUME 88 fl (80-97); MONOCYTES % (AUTO) 12.8 % (3-13); PLATELET COUNT 176 10^3/uL (150-450); RED BLOOD COUNT 4.34 10^6/uL (3.72-5.28); RED CELL DISTRIBUTION WIDTH 14.8 % (11.5-14.0); SEGMENTED NEUTROPHILS % (AUTO) 66.4 % (42-78); TOTAL CELLS COUNTED % (AUTO) 100 %; WHITE BLOOD COUNT 6.2 10^3/uL (4.0-10.5)
[2019-01-25 08:31] LABS: ALBUMIN 4.2 g/dL (3.5-5.0); ANION GAP 8 (5-19); BLOOD UREA NITROGEN 39 mg/dL (7-20); CALCIUM 9.4 mg/dL (8.4-10.2); CARBON DIOXIDE 21 mmol/L (22-30); CHLORIDE 104 mmol/L (98-107); GLUCOSE 94 mg/dL (75-110); PHOSPHORUS 4.2 mg/dL (2.5-4.5)
[2019-01-25 11:12] LABS: ADD MANUAL MICROSCOPIC YES; APPEARANCE,URINE CLEAR; BILIRUBIN,URINE NEGATIVE (NEGATIVE); COLOR,URINE YELLOW; GLUCOSE, URINE NEGATIVE (NEGATIVE); KETONES,URINE NEGATIVE (NEGATIVE); LEUKOCYTE ESTERASE,URINE MODERATE (NEGATIVE); NITRITE,URINE NEGATIVE (NEGATIVE); PROTEIN,URINE NEGATIVE (NEGATIVE); URINE SPECIFIC GRAVITY 1.008; UROBILINOGEN,URINE NEGATIVE mg/dL (<2.0)
[2019-01-25 11:21] LABS: BACTERIA,URINE 3+ /HPF
[2019-01-26 10:36] LABS: CREATININE URINE 89.8 mg/dL (Not Estab.); MICROALBUMIN URINE 21.2 ug/mL (Not Estab.)
== END ==
LOC: OD 07:03
PROVIDERS: ATTEND Internal Medicine Nephrology
DX: N18.4 Chronic kidney disease, stage 4 (severe) (principal); I12.9 Hypertensive chronic kidney disease with stage 1 through stage 4 chronic kidney disease, or unspecified chronic kidney disease; D63.1 Anemia in chronic kidney disease; N25.81 Secondary hyperparathyroidism of renal origin
CPT/HCPCS: 36415; 80069; 81001; 82043; 82306; 82570; 83970; 85025

== ENCOUNTER 2019-02-19 05:52 | Emergency (ER) | payer MEDICARE, OTHER ==
[2019-02-19 06:02] VITALS: BP 132/52
--- NOTE | 2019-02-19 06:09 | ER Document Report ---
ED General - General Chief Complaint: Pain All Over Stated Complaint: PAIN ALL OVER Time Seen by Provider: 02/19/19 06:08 Primary Care Provider: CHRISTOPHER AHUMADA MD [ACTIVE STAFF] - Follow up as needed Notes: 83-year-old lady presents with all over body pain sinus congestion runny nose headache sneezing and watery eyes is been going on for several days. She takes allergy medicine at home and says is not working. No neck stiffness no visual symptoms. Denies vomiting or diarrhea. TRAVEL OUTSIDE OF THE [place] IN LAST 30 DAYS: No - Related Data Allergies/Adverse Reactions: Sulfa (Sulfonamide Antibiotics) Allergy (Intermediate, Verified 04/29/18 07:01) Generalized Itching Past Medical History - Social History Smoking Status: Former Smoker Family History: Reviewed & Not Pertinent, CAD, Hypertension - Past Medical History Cardiac Medical History: Reports: Hx Congestive Heart Failure, Hx Coronary Artery Disease, Hx Hypertension - medicated Pulmonary Medical History: Reports: Hx Bronchitis, Hx Sleep Apnea Neurological Medical History: Denies: Hx Seizures Endocrine Medical History: Reports: Hx Hypothyroidism Renal/ Medical History: Reports: Hx End Stage Renal Disease - Stage IV, no plan for dialysis, Hx Renal Insufficiency. Denies: Hx Peritoneal Dialysis Malignancy Medical History: Reports: Hx Skin Cancer - Squamous cell GI Medical History: Reports: Hx Diverticulitis, Hx Gastritis, Hx Gastroesophageal Reflux Disease - With hiatal hernia, Hx Colonoscopy, Hx Endoscopy Musculoskeletal Medical History: Reports Hx Arthritis, Reports Hx Musculoskeletal Deformity, Reports Hx Musculoskeletal Trauma Past Surgical History: Reports: Hx Appendectomy, Hx Cholecystectomy, Hx Hysterectomy, Hx Orthopedic Surgery - stas tkr x 2 , foot , hand, carpal tunnel surgery of the right wrist, Hx Pancreatic Surgery, Hx Thyroid Surgery, Hx Tonsillectomy, Other - EGD, hemorrhoidectomy, colonoscopy, cataract extraction - Immunizations Hx Diphtheria, Pertussis, Tetanus Vaccination: No Hx Pneumococcal Vaccination: 03/20/10 Review of Systems - Review of Systems Notes: REVIEW OF SYSTEMS GEN: Malaise body aches ENT: rhinorrhea EYES: Denies blurry vision, eye pain, discharge and watery eyes. CV: Denies chest pain, palpitations, edema RESP: No cough or shortness of breath GI: Denies abdominal pain, nausea, vomiting, diarrhea MSK: Body aches, SKIN: Denies rash, skin lesions LYMPH: Denies swollen glands/lymph nodes NEURO: Denies headache, focal weakness or numbness, dizziness PSYCH: Denies depression, suicidal or homicidal ideation PHYSICAL EXAMINATION General: No acute distress, well-nourished Head: Atraumatic, normocephalic ENT: Mouth normal, oropharynx moist, no exudates or tonsillar enlargement Eyes: Conjunctiva normal, pupils equal, lids normal Neck: No JVD, supple, no guarding CVS: Normal rate, regular rhythm, no murmurs Resp: No resp distress, equal and normal breath sounds bilaterally GI: Nondistended, soft, no tenderness to palpation, no rebound or guarding Ext: No deformities, no edema, normal range of motion in upper and lower ext Back: No CVA or midline TTP Skin: No rash, warm Lymphatic: No lymphadeopathy noted Neuro: Awake, alert. Face symmetric. GCS 15. Physical Exam - Vital signs Vitals: Temp Pulse Resp BP Pulse Ox 97.5 F 62 16 132/52 H 99 02/19/19 06:00 02/19/19 06:00 02/19/19 06:00 02/19/19 06:00 02/19/19 06:00 Course - Re-evaluation Re-evalutation: 02/19/19 07:18 83-year-old lady presents with either allergic or viral type symptoms without fever. She has no signs of meningitis or serious bacterial infection no abdominal tenderness or urinary symptoms, no signs and symptoms of pneumonia and is generally well-appearing. I see no evidence of bacterial infection or need for antibiotics or further work-up at this time. This was discussed at length. She will follow-up with her primary care. Recommended Tylenol for headaches, despite the headache there is no neck stiffness, or meningismus or neurologic symptoms. I have discussed with the patient there likely diagnosis, aftercare plan, follow-up plans and my usual and customary return precautions. They verbalized understanding of this. - Vital Signs Vital signs: Temp Pulse Resp BP Pulse Ox 97.5 F 62 16 132/52 H 99 02/19/19 06:00 02/19/19 06:00 02/19/19 06:00 02/19/19 06:00 02/19/19 06:00 Discharge - Discharge Clinical Impression: Rhinorrhea Condition: Good Disposition: HOME, SELF-CARE Instructions: Upper Respiratory Illness ([facility]) Referrals: CHRISTOPHER AHUMADA MD [ACTIVE STAFF] - Follow up as needed
== END 2019-02-19 07:01 | disposition home or self-care (01) ==
LOC: ER 05:52
DX: J34.89 Other specified disorders of nose and nasal sinuses (principal); M79.10 Myalgia, unspecified site; R09.81 Nasal congestion; R09.89 Other specified symptoms and signs involving the circulatory and respiratory systems; R51 Headache; R06.7 Sneezing; Z87.891 Personal history of nicotine dependence; I50.9 Heart failure, unspecified; I25.10 Atherosclerotic heart disease of native coronary artery without angina pectoris; I11.0 Hypertensive heart disease with heart failure; Z79.899 Other long term (current) drug therapy
CPT/HCPCS: 99283

== ENCOUNTER → 2019-05-14 | Outpatient (CLI) | payer MEDICARE, OTHER ==
[2019-05-14 08:06] LABS: ANION GAP 9 (5-19); BLOOD UREA NITROGEN 38 mg/dL (7-20); CALCIUM 9.6 mg/dL (8.4-10.2); CARBON DIOXIDE 27 mmol/L (22-30); CHLORIDE 99 mmol/L (98-107); GLUCOSE 92 mg/dL (75-110); POTASSIUM 5.1 mmol/L (3.6-5.0)
[2019-05-15 12:37] LABS: CREATININE URINE 38.8 mg/dL (Not Estab.)
[2019-05-15 12:47] LABS: MICROALBUMIN URINE <3.0 ug/mL (Not Estab.)
== END ==
LOC: OD 07:11
PROVIDERS: ATTEND Internal Medicine Nephrology
DX: I12.9 Hypertensive chronic kidney disease with stage 1 through stage 4 chronic kidney disease, or unspecified chronic kidney disease (principal); N18.4 Chronic kidney disease, stage 4 (severe); E87.1 Hypo-osmolality and hyponatremia; N25.81 Secondary hyperparathyroidism of renal origin
CPT/HCPCS: 36415; 80048; 82043; 82570; 83970

== ENCOUNTER → 2019-09-17 | Outpatient (CLI) | payer MEDICARE, OTHER ==
[2019-09-17 08:04] LABS: ABSOLUTE BASOPHILS # (AUTO) 0.1 10^3/uL (0.0-0.2); ABSOLUTE EOSINOPHILS # (AUTO) 0.2 10^3/uL (0.0-0.6); ABSOLUTE LYMPHOCYTES (AUTO) 1.1 10^3/uL (0.5-4.7); ABSOLUTE MONOCYTES (AUTO) 0.6 10^3/uL (0.1-1.4); ABSOLUTE NEUT (AUTO) 3.6 10^3/uL (1.7-8.2); EOSINOPHILS % (AUTO) 2.8 % (0-6); HEMATOCRIT 33.8 % (36.0-47.0); HEMOGLOBIN 11.4 g/dL (12.0-15.5); LYMPHOCYTES % (AUTO) 19.3 % (13-45); MEAN CORPUSCULAR HEMOGLOBIN 29.4 pg (27.0-33.4); MEAN CORPUSCULAR HGB CONC 33.9 g/dL (32.0-36.0); MEAN CORPUSCULAR VOLUME 87 fl (80-97); MONOCYTES % (AUTO) 11.4 % (3-13); PLATELET COUNT 191 10^3/uL (150-450); RED BLOOD COUNT 3.89 10^6/uL (3.72-5.28); RED CELL DISTRIBUTION WIDTH 13.4 % (11.5-14.0); SEGMENTED NEUTROPHILS % (AUTO) 65.5 % (42-78); TOTAL CELLS COUNTED % (AUTO) 100 %; WHITE BLOOD COUNT 5.5 10^3/uL (4.0-10.5)
[2019-09-17 08:12] LABS: ALBUMIN 4.1 g/dL (3.5-5.0); ANION GAP 9 (5-19); BLOOD UREA NITROGEN 37 mg/dL (7-20); CALCIUM 9.2 mg/dL (8.4-10.2); CARBON DIOXIDE 25 mmol/L (22-30); CHLORIDE 101 mmol/L (98-107); GLUCOSE 99 mg/dL (75-110); PHOSPHORUS 3.9 mg/dL (2.5-4.5); POTASSIUM 4.7 mmol/L (3.6-5.0)
[2019-09-17 11:58] LABS: APPEARANCE,URINE CLEAR; BILIRUBIN,URINE NEGATIVE (NEGATIVE); COLOR,URINE STRAW; GLUCOSE, URINE NEGATIVE (NEGATIVE); KETONES,URINE NEGATIVE (NEGATIVE); LEUKOCYTE ESTERASE,URINE TRACE (NEGATIVE); NITRITE,URINE NEGATIVE (NEGATIVE); PROTEIN,URINE NEGATIVE (NEGATIVE); URINE SPECIFIC GRAVITY 1.006; UROBILINOGEN,URINE NEGATIVE mg/dL (<2.0)
== END ==
LOC: OD 07:06
PROVIDERS: ATTEND Internal Medicine Nephrology
DX: I12.9 Hypertensive chronic kidney disease with stage 1 through stage 4 chronic kidney disease, or unspecified chronic kidney disease (principal); N18.4 Chronic kidney disease, stage 4 (severe); E87.5 Hyperkalemia; E87.2 Acidosis; N25.81 Secondary hyperparathyroidism of renal origin; R30.9 Painful micturition, unspecified
CPT/HCPCS: 36415; 80069; 81001; 82306; 83970; 85025; 87086

== ENCOUNTER 2019-12-30 17:53 | Inpatient (IN) | payer MEDICARE, OTHER ==
[2019-12-30] MEDS ORDERED: FENTANYL CITRATE INJ/PF 100 MCG/2 ML AMPUL IV ONE (18:36)
[2019-12-30] MEDS ORDERED: ONDANSETRON HCL INJ/PF 4 MG/2 ML SDV IV ONE ×2 (18:36→20:45)
--- NOTE | 2019-12-30 18:38 | ER Document Report ---
Entered by PHILIP MARTINEZ SCRIBE 12/30/19 1806 Acting as scribe for:KWESI NOLEN DO ED GI/ - General Chief Complaint: Constipation Stated Complaint: BOWEL ISSUE Time Seen by Provider: 12/30/19 18:03 Primary Care Provider: CHRISTOPHER AHUMADA MD [ACTIVE STAFF] - Follow up as needed Mode of Arrival: Ambulatory Information source: Patient Notes: This 84 year old female patient presents to the emergency department today with complaints of constipation. Patient reports that she has not had a normal bowel movement in several days. Patient reports having diarrhea last night and feeling like there is "big ball of stool right there at the rectum" that she is unable to pass. Patient also mentions a fall just prior to arrival where she lost her balance. Patient has low back pain resulting from the fall. TRAVEL OUTSIDE OF THE [place] IN LAST 30 DAYS: No - Related Data Allergies/Adverse Reactions: Sulfa (Sulfonamide Antibiotics) Allergy (Intermediate, Verified 04/29/18 07:01) Generalized Itching Past Medical History - General Information source: Patient - Social History Smoking Status: Unknown if Ever Smoked Cigarette use (# per day): No Frequency of alcohol use: None Drug Abuse: None Lives with: Family Family History: Reviewed & Not Pertinent, CAD, Hypertension - Past Medical History Cardiac Medical History: Reports: Hx Congestive Heart Failure, Hx Coronary Artery Disease, Hx Hypertension - medicated Pulmonary Medical History: Reports: Hx Bronchitis, Hx Sleep Apnea Endocrine Medical History: Reports: Hx Hypothyroidism Renal/ Medical History: Reports: Hx End Stage Renal Disease - Stage IV, no plan for dialysis, Hx Renal Insufficiency Malignancy Medical History: Reports: Hx Skin Cancer - Squamous cell GI Medical History: Reports: Hx Diverticulitis, Hx Gastritis, Hx Gastroesophageal Reflux Disease - With hiatal hernia, Hx Colonoscopy, Hx Endoscopy Musculoskeletal Medical History: Reports Hx Arthritis, Reports Hx Musculoskeleta l Deformity, Reports Hx Musculoskeletal Trauma Past Surgical History: Reports: Hx Appendectomy, Hx Cholecystectomy, Hx Hysterectomy, Hx Orthopedic Surgery - stas tkr x 2 , foot , hand, carpal tunnel surgery of the right wrist, Hx Pancreatic Surgery, Hx Thyroid Surgery, Hx Ton sillectomy, Other - EGD, hemorrhoidectomy, colonoscopy, cataract extraction - Immunizations Hx Diphtheria, Pertussis, Tetanus Vaccination: No Hx Pneumococcal Vaccination: 10/01/10 Review of Systems - Review of Systems Constitutional: No symptoms reported EENT: No symptoms reported Cardiovascular: No symptoms reported Respiratory: No symptoms reported Gastrointestinal: No symptoms reported Genitourinary: No symptoms reported Female Genitourinary: No symptoms reported Musculoskeletal: No symptoms reported Skin: No symptoms reported Hematologic/Lymphatic: No symptoms reported Neurological/Psychological: See HPI, Seizure -: Yes All other systems reviewed and negative Physical Exam - Vital signs Vitals: Temp 97.4 F 12/30/19 18:13 - Notes Notes: Physical Exam: General: Alert, appears well. HEENT: Normocephalic. Atraumatic. PERRL. Extraocular movements intact. O ropharynx clear. Neck: Supple. Non-tender. Respiratory: No respiratory distress. Clear and equal breath sounds bilaterally. Cardiovascular: Regular rate and rhythm. Abdominal: Mild lower suprapubic, right lower, and left lower quadrant tenderness with palpation. Normal Bowel Sounds. Back: L1 midline tenderness with palpation. No step-off or deformity. Rectal: Performed with female nurse laboratory phlebotomist in attendance. No gross blood. Brown stool, heme negative. No stool burden in the rectal vault. Extremities: Moves all four extremities. Upper extremities: Normal inspection. Normal ROM. Lower extremities: Normal inspection. No edema. Normal ROM. Neurological: Normal cognition. AAOx4. Normal speech. Psychological: Normal affect. Normal Mood. Skin: Warm. Dry. Normal color. Course - Vital Signs Vital signs: Temp Pulse Resp BP Pulse Ox 97.4 F 12/30/19 18:13 - Laboratory Result Diagrams: 12/30/19 18:00 12/30/19 18:00 Laboratory results interpreted by me: 12/30/19 12/30/19 12/30/19 18:00 18:00 18:00 RBC 3.63 L Hgb 9.3 L Hct 28.9 L MCH 25.7 L RDW 15.6 H Lymph % (Auto) 10.1 L Seg Neutrophils % 79.0 H Sodium 132.3 L BUN 42 H Creatinine 2.17 H Est GFR ( Amer) 26 L Est GFR (MDRD) Non-Af 22 L Glucose 112 H Urine Blood SMALL H Ur Leukocyte Esterase LARGE H Discharge - Discharge Clinical Impression: Compression fracture of L1 lumbar vertebra Qualifiers: Encounter type: initial encounter Qualified Code(s): S32.010A - Wedge compression fracture of first lumbar vertebra, initial encounter for closed fracture UTI (urinary tract infection) Qualifiers: Urinary tract infection type: site unspecified Hematuria presence: with hematuria Qualified Code(s): N39.0 - Urinary tract infection, site not specified Anemia Qualifiers: Anemia type: unspecified type Qualified Code(s): D64.9 - Anemia, unspecified Condition: Stable Disposition: ADMITTED INPATIENT Admitting Provider: Gregory (Hospitalist) Unit Admitted: Medical Floor Referrals: CHRISTOPHER AHUMADA MD [ACTIVE STAFF] - Follow up as needed I personally performed the services described in the documentation, reviewed and edited the documentation which was dictated to the scribe in my presence, and it accurately records my words and actions.
[2019-12-30 18:48] LABS: ABSOLUTE BASOPHILS # (AUTO) 0.1 10^3/uL (0.0-0.2); ABSOLUTE EOSINOPHILS # (AUTO) 0.1 10^3/uL (0.0-0.6); ABSOLUTE LYMPHOCYTES (AUTO) 0.8 10^3/uL (0.5-4.7); ABSOLUTE MONOCYTES (AUTO) 0.7 10^3/uL (0.1-1.4); ABSOLUTE NEUT (AUTO) 6.2 10^3/uL (1.7-8.2); BASOPHILS % (AUTO) 0.8 % (0-2); EOSINOPHILS % (AUTO) 0.7 % (0-6); HEMATOCRIT 28.9 % (36.0-47.0); HEMOGLOBIN 9.3 g/dL (12.0-15.5); LYMPHOCYTES % (AUTO) 10.1 % (13-45); MEAN CORPUSCULAR HEMOGLOBIN 25.7 pg (27.0-33.4); MEAN CORPUSCULAR HGB CONC 32.3 g/dL (32.0-36.0); MEAN CORPUSCULAR VOLUME 80 fl (80-97); MONOCYTES % (AUTO) 9.4 % (3-13); PLATELET COUNT 186 10^3/uL (150-450); RED BLOOD COUNT 3.63 10^6/uL (3.72-5.28); RED CELL DISTRIBUTION WIDTH 15.6 % (11.5-14.0); TOTAL CELLS COUNTED % (AUTO) 100 %; WHITE BLOOD COUNT 7.9 10^3/uL (4.0-10.5)
[2019-12-30 19:07] LABS: ALKALINE PHOSPHATASE 55 U/L (38-126); ANION GAP 5 (5-19); ASPARTATE AMINO TRANSFERASE 27 U/L (14-36); BILIRUBIN,TOTAL 0.3 mg/dL (0.2-1.3); BLOOD UREA NITROGEN 42 mg/dL (7-20); CALCIUM 9.3 mg/dL (8.4-10.2); CARBON DIOXIDE 25 mmol/L (22-30); CHLORIDE 102 mmol/L (98-107); GLUCOSE 112 mg/dL (75-110); TOTAL PROTEIN 6.4 g/dL (6.3-8.2)
[2019-12-30 19:12] LABS: APPEARANCE,URINE CLEAR; BILIRUBIN,URINE NEGATIVE (NEGATIVE); COLOR,URINE YELLOW; GLUCOSE, URINE NEGATIVE (NEGATIVE); KETONES,URINE NEGATIVE (NEGATIVE); LEUKOCYTE ESTERASE,URINE LARGE (NEGATIVE); NITRITE,URINE NEGATIVE (NEGATIVE); PROTEIN,URINE NEGATIVE (NEGATIVE); URINE SPECIFIC GRAVITY 1.012; UROBILINOGEN,URINE NEGATIVE mg/dL (<2.0)
[2019-12-30] MEDS ORDERED: CEFTRIAXONE 1 GM/D5W RTU 1 GM/50 ML RTUPB IV ONE (19:38)
--- NOTE | 2019-12-30 20:34 | RADIOLOGY REPORT (SQ) ---
EXAM DESCRIPTION: CT scan of the abdomen and pelvis without contrast. CLINICAL HISTORY: 84 years Female; abd pain / lumbar pain TECHNIQUE: CT of the abdomen and pelvis without intravenous contrast.. Oral contrastWas not used. All CT scans at this facility use dose modulation, iterative reconstruction, and/or weight based dosing when appropriate to reduce radiation dose to as low as reasonably achievable. This exam was performed according to our department optimization program which includes automated exposure control, adjustment of the mA and/or kv according to patient size and/or use of iterative reconstruction technique. COMPARISON: Unenhanced CT scan of the abdomen and pelvis April 29, 2018 FINDINGS: Lower chest: The lung bases are clear. There is left atrial enlargement. Aortic valve calcifications. Sliding hiatal hernia. Abdomen: Liver and biliary tree: The appearance of the unenhanced liver is stable. The gallbladder surgically absent. Pancreas: Normal Spleen:Within normal limits Kidneys: The kidneys are small bilaterally and there are simple cysts seen in both kidneys. Perinephric edema and stranding is unchanged. No stones. No hydronephrosis. Overall the appearance the kidneys are stable. Adrenal glands:Within normal limits Vascular structures: Scattered atherosclerotic vascular calcification in the aorta iliac and visceral vessels. Retroperitoneum: No mass or lymphadenopathy Abdominal wall: Large right fat-containing inguinal hernia. GI: Moderate stool is noted in the colon. There is diverticula in the sigmoid colon. No evidence of diverticulitis. No obstruction. No focal bowel wall thickening or inflammation. Appendix: The appendix is not clearly seen. The tip of the cecum is normal. General: No free air. No free fluid Pelvis: Lymph nodes: No mass or lymphadenopathy Bladder: Unremarkable. Pelvis: No pelvic mass or adenopathy. Bones: There is a subtle compression fracture involving the superior endplate of L1 with sclerosis and mild impaction. This is new when compared the previous exam. 15% loss of height of the vertebral body is identified. No destructive bone lesions. IMPRESSION: 1. New L1 compression fracture with 15% loss of height. This appears to be an acute fracture. No destructive bone lesions. 2. Large right inguinal hernia containing fat which is stable. 3. Diverticulosis. No evidence of diverticulitis. 4. No acute process in the abdomen or pelvis.
[2019-12-30] MEDS ORDERED: MORPHINE SULFATE 10 MG/ML INJ IV ONE (20:44)
[2019-12-30] MEDS ORDERED: ONDANSETRON HCL INJ/PF 4 MG/2 ML SDV IV PRN (21:47)
[2019-12-30] MEDS ORDERED: MAGNESIUM HYDROXIDE SUSP 30 ML UDCUP PO PRN (21:47)
[2019-12-30] MEDS ORDERED: MAG HYDROX/AL HYDROX/SIMETH SUSP 30 ML UDCUP PO PRN (21:47)
[2019-12-30] MEDS ORDERED: METOPROLOL TARTRATE PF/INJ 5 MG/5 ML SDV IV PRN (21:54)
[2019-12-30] MEDS ORDERED: LORAZEPAM INJ 2 MG/1 ML VIAL IV PRN (21:54)
[2019-12-30] MEDS ORDERED: MORPHINE SULFATE 10 MG/ML INJ IV PRN ×3 (21:54)
[2019-12-30] MEDS ORDERED: HYDRALAZINE HCL INJ/PF 20 MG/1 ML SDV IV PRN (21:54)
[2019-12-30] MEDS ORDERED: GUAIFENESIN SYRP 200 MG/10 ML UDC PO PRN (21:54)
[2019-12-30] MEDS: HEPARIN SOD (PORCINE) 5,000 UNIT/ML 1 ML VIAL SUBCUT SCH (23:49)
[2019-12-30] MEDS: ACETAMINOPHEN 325 MG TABLET PO PRN (23:49)
[2019-12-30] MEDS: MELATONIN 5 MG TABLET PO PRN (23:49)
--- NOTE | 2019-12-31 00:45 | PDOC H&P ---
History of Present Illness Admission Date/PCP: 12/30/2019 21:20 TIERA LUGO MD Patient complains of: Low back pain History of Present Illness: TARAN MANZANARES is a 84 year old female who presented to the emergency room with acute low back pain. She is blind and admits having fallen at home after losing her balance getting up from the toilet. She fell to the floor landing on her buttocks and began experiencing moderate localized lumbar back pain worsened by movement, and then fell again as she was trying to get up, all of which precipitated her visit to the emergency room. She details that she had been constipated for 2 days and got up last night to go to the bathroom resulting in a large diarrhea stool however she continues to feel constipated/obstipated. She denies other associated or accompanying signs and symptoms. She denies prior similar episodes. She has not identified any additional aggravating or ameliorating factors for her low back pain. In the emergency room she was found to have an acute compression fracture of the L1 vertebrae with a 15% loss of vertebral height. She was also noted to have pyuria. She was subsequently admitted for further evaluation and treatment. 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 Denies: Ears - Hearing aids Neurological Medical History: Denies: Hemorrhagic CVA, Ischemic CVA, Seizures Endocrine Medical History: Reports: Hypothyroidism, Obesity Denies: Diabetes Mellitus Type 1, Diabetes Mellitus Type 2, Hyperthyroidism Renal/ Medical History: Reports: Chronic Kidney Disease, End Stage Renal Disease - Stage IV Denies: Nephrolithiasis Malignancy Medical History: Reports: None, Skin Cancer - Squamous cell GI Medical History: Reports: Diverticulitis, Gastroesophageal Reflux Disease, Hiatal Hernia, Peptic Ulcer Disease Denies: Cirrhosis, Hepatitis Musculoskeltal Medical History: Reports: Arthritis Denies: Fibromyalgia Skin Medical History: Denies: Eczema, Psoriasis Psychiatric Medical History: Denies: Alcohol Dependency, Substance Abuse, Tobacco Dependency Traumatic Medical History: Reports: None Hematology: Reports: Anemia - Chronic due to CKD, Bleeding Tendencies Infectious Medical History: Reports: None Past Surgical History Past Surgical History: Reports: Appendectomy, Cholecystectomy, Hysterectomy, Orthopedic Surgery - stas tkr x 2 , foot , hand, carpal tunnel surgery of the right wrist, Tonsillectomy, Other - EGD, hemorrhoidectomy, colonoscopy, cataract extraction Social History Information Source: Patient Lives with: Family Smoking Status: Former Smoker Electronic Cigarette use?: No Frequency of Alcohol Use: None Hx Recreational Drug Use: No Drugs: None Hx Prescription Drug Abuse: No - Advance Directive Resuscitation Status: Full Code Surrogate healthcare decision maker:: Mary Bean Family History Family History: CAD, Hypertension Parental Family History Reviewed: Yes Children Family History Reviewed: No Sibling(s) Family History Reviewed.: Yes Medication/Allergy Home Medications: Calcium Acetate [Phoslo 667 mg Capsule] 667 mg PO MEALS 10/19/16 Cyclosporine 0.05% Oph Emulsio [Restasis 0.05% Oph Emulsion Pf 0.4 ml] 1 drop OU BID 10/19/16 Fexofenadine HCl [Noemí] 180 mg PO DAILY 10/19/16 Furosemide [Lasix] 20 mg PO QAM 10/19/16 Gabapentin [Neurontin] 600 mg PO QHS 10/19/16 Levothyroxine Sodium [Synthroid] 50 mcg PO QAM 10/19/16 Loteprednol Etabonate [Lotemax 0.5% Ophth Susp] 1 drop OU QPM 10/19/16 Lubiprostone [Amitiza 8 Mcg Capsule] 8 mcg PO DAILY 10/19/16 Mirabegron [Myrbetriq] 50 mg PO DAILY 10/19/16 Pantoprazole Sodium [Protonix] 40 mg PO BID 10/19/16 Pregabalin [Lyrica 50 mg Capsule] 50 mg PO Q12 10/19/16 Sennosides [Senna] 8.6 mg PO BID 10/19/16 Temazepam [Restoril] 30 mg PO QHS 10/19/16 Tramadol HCl [Ultram] 50 mg PO Q6HP PRN 10/19/16 Valsartan [Diovan 160 mg Tablet] 160 mg PO Q12 10/19/16 Ondansetron [Zofran Odt 4 mg Tablet] 1 - 2 tab PO Q4H PRN #12 tab.rapdis 04/01/17 Hydrocodone/Acetaminophen [Vicodin 5-300 mg Tablet] 1 each PO Q6HP PRN #20 t ablet 09/12/17 Ciprofloxacin HCl [Cipro 500 mg Tablet] 500 mg PO BID #20 tablet 11/03/17 Metronidazole [Flagyl 500 mg Tablet] 500 mg PO Q8 #30 tablet 11/03/17 Nystatin [Mycostatin 023602 Unit/1 ml Susp 60 ml Btl] 4 - 6 ml PO QID 14 Days #350 ml 04/29/18 Allergies/Adverse Reactions: Sulfa (Sulfonamide Antibiotics) Allergy (Intermediate, Verified 04/29/18 07:01) Generalized Itching Review of Systems Constitutional: ABSENT: chills, fever(s) Eyes: PRESENT: other - Longstanding blindness. ABSENT: visual disturbances Ears: ABSENT: hearing changes, other - Ear pain Nose, Mouth, and Throat: ABSENT: headache(s), sore throat Cardiovascular: ABSENT: chest pain, palpitations Respiratory: ABSENT: cough, dyspnea Gastrointestinal: PRESENT: as per HPI, constipation, diarrhea. ABSENT: abdominal pain, nausea, vomiting Genitourinary: PRESENT: other - Foul-smelling urine. ABSENT: difficulty urinating, dysuria Integumentary: ABSENT: pruritus, rash Neurological: ABSENT: confusion, convulsions, focal weakness, memory loss, syncope Psychiatric: ABSENT: anxiety, depression Endocrine: ABSENT: cold intolerance, heat intolerance Hematologic/Lymphatic: PRESENT: easy bleeding, easy bruising Allergic/Immunologic: ABSENT: seasonal rhinorrhea Physical Exam Vital Signs: Temp Pulse Resp BP Pulse Ox 97.4 F 12/30/19 18:13 Intake & Output 12/28/19 12/29/19 12/30/19 23:59 23:59 23:59 Intake Total 50 Balance 50 Weight 92.5 kg General appearance: PRESENT: no acute distress, cooperative, obese Head exam: PRESENT: atraumatic, normocephalic Eye exam: PRESENT: conjunctiva pink, other - Bilateral blindness. ABSENT: conjunctival injection, scleral icterus Ear exam: PRESENT: normal external ear exam. ABSENT: bleeding, drainage Mouth exam: PRESENT: dry mucosa, neck supple Neck exam: ABSENT: thyromegaly, tracheal deviation Respiratory exam: PRESENT: clear to auscultation stas, symmetrical, unlabored Cardiovascular exam: PRESENT: RRR. ABSENT: clicks, gallop, rubs Pulses: PRESENT: normal radial pulses, normal dorsalis pedis pul Vascular exam: PRESENT: normal capillary refill. ABSENT: pallor GI/Abdominal exam: PRESENT: normal bowel sounds, soft Rectal exam: PRESENT: deferred Extremities exam: ABSENT: joint swelling, pedal edema Musculoskeletal exam: PRESENT: tenderness - Tenderness of the upper lumbar region on palpation. ABSENT: deformity, dislocation, full ROM - Lumbar spine range of motion limited by pain Neurological exam: PRESENT: alert, oriented to person, oriented to place, oriented to time, oriented to situation, CN II-XII grossly intact - Bilateral blindness, motor sensory deficit - Bilateral blindness Psychiatric exam: PRESENT: appropriate affect, normal mood Skin exam: PRESENT: dry, intact, warm. ABSENT: jaundice, rash, urticaria Results Laboratory Results: 12/30/19 18:00 12/30/19 18:00 12/30/19 12/30/19 12/30/19 18:00 18:00 18:00 WBC 7.9 RBC 3.63 L Hgb 9.3 L Hct 28.9 L MCV 80 MCH 25.7 L MCHC 32.3 RDW 15.6 H Plt Count 186 Seg Neutrophils % 79.0 H Sodium 132.3 L Potassium 5.0 Chloride 102 Carbon Dioxide 25 Anion Gap 5 BUN 42 H Creatinine 2.17 H Est GFR ( Amer) 26 L Glucose 112 H Lactic Acid 1.0 Calcium 9.3 Total Bilirubin 0.3 AST 27 Alkaline Phosphatase 55 Total Protein 6.4 Albumin 4.0 Urine Color Urine Appearance Urine pH Ur Specific [place] Urine Protein Urine Glucose (UA) Urine Ketones Urine Blood Urine Nitrite Ur Leukocyte Esterase Urine WBC (Auto) Urine RBC (Auto) 12/30/19 18:00 WBC RBC Hgb Hct MCV MCH MCHC RDW Plt Count Seg Neutrophils % Sodium Potassium Chloride Carbon Dioxide Anion Gap BUN Creatinine Est GFR ( Amer) Glucose Lactic Acid Calcium Total Bilirubin AST Alkaline Phosphatase Total Protein Albumin Urine Color YELLOW Urine Appearance CLEAR Urine pH 6.0 Ur Specific [place] 1.012 Urine Protein NEGATIVE Urine Glucose (UA) NEGATIVE Urine Ketones NEGATIVE Urine Blood SMALL H Urine Nitrite NEGATIVE Ur Leukocyte Esterase LARGE H Urine WBC (Auto) 18 Urine RBC (Auto) 3 Impressions: Abdomen/Pelvis CT 12/30/19 18:23 IMPRESSION: 1. New L1 compression fracture with 15% loss of height. This appears to be an acute fracture. No destructive bone lesions. 2. Large right inguinal hernia containing fat which is stable. 3. Diverticulosis. No evidence of diverticulitis. 4. No acute process in the abdomen or pelvis. Assessment and Plan - Diagnosis (1) Lumbar back pain Is this a current diagnosis for this admission?: Yes (2) Compression fracture of L1 lumbar vertebra Qualifiers: Encounter type: initial encounter Qualified Code(s): S32.010A - Wedge compression fracture of first lumbar vertebra, initial encounter for closed fracture Is this a current diagnosis for this admission?: Yes (3) Pyuria Is this a current diagnosis for this admission?: Yes (4) Osteoarthritis Qualifiers: Osteoarthritis location: unspecified site Osteoarthritis type: unspecified Qualified Code(s): M19.90 - Unspecified osteoarthritis, unspecified site Is this a current diagnosis for this admission?: Yes (5) Chronic renal insufficiency, stage IV (severe) Is this a current diagnosis for this admission?: Yes (6) Anemia due to stage 4 chronic kidney disease Is this a current diagnosis for this admission?: Yes (7) Hypothyroid Qualifiers: Hypothyroidism type: unspecified Qualified Code(s): E03.9 - Hypothyroidism, unspecified Is this a current diagnosis for this admission?: Yes (8) Hypertension Qualifiers: Hypertension type: essential hypertension Qualified Code(s): I10 - [place]ia l (primary) hypertension Is this a current diagnosis for this admission?: Yes (9) Congestive heart failure (CHF) Is this a current diagnosis for this admission?: Yes (10) GERD (gastroesophageal reflux disease) Qualifiers: Esophagitis presence: esophagitis presence not specified Qualified Code(s): K21.9 - Gastro-esophageal reflux disease without esophagitis Is this a current diagnosis for this admission?: Yes (11) Acquired blindness of both eyes Is this a current diagnosis for this admission?: Yes - Plan Summary Summary: Patient will be admitted to the medical floor where she will receive routine supportive and symptomatic cares. She will receive Rocephin 1 g IV every 24 hours pending ER obtained urine and blood culture results. She will receive morphine sulfate 2 to 4 mg IV every 2 hours as needed for pain control. She will receive Ativan 1 mg IV every 4 hours as needed for anxiety or restlessness. A physical therapy and occupational therapy consultation will be obtained. A social media marketing manager consultation will be obtained. Orthopedic consultation with Dr. Conrad will be obtained. She will be maintained on a cardiac diet. Her usual medications will be resumed, as appropriate, once her medication list has been verified and reconciled. - Time Time Spent with patient: 15-24 minutes Medications reviewed and adjusted accordingly: Yes Anticipated discharge: Home with Homehealth, SNF - Inpatient Certification Based on my medical assessment, after consideration of the patient's comorbidities, presenting symptoms, or acuity I expect that the services needed warrant INPATIENT care.: Yes I certify that my determination is in accordance with my understanding of Medicare's requirements for reasonable and necessary INPATIENT services [42 CFR 412.3e].: Yes Medical Necessity: Significant Comorbidiites Make Outpatient Treatment Too Risky, Need for Neurological Checks, Need for Pain Control, Risk of Complication if Not Cared For in Hospital
[2019-12-31] MEDS: MORPHINE SULFATE 10 MG/ML INJ IV PRN ×2 (02:47→14:05)
[2019-12-31] MEDS: DIPHENHYDRAMINE HCL 50 MG/ML VIAL IV PRN ×2 (03:48→09:05)
[2019-12-31 06:00] LABS: HEMATOCRIT 27.7 % (36.0-47.0); HEMOGLOBIN 9.1 g/dL (12.0-15.5); MEAN CORPUSCULAR HEMOGLOBIN 26.1 pg (27.0-33.4); MEAN CORPUSCULAR HGB CONC 32.7 g/dL (32.0-36.0); MEAN CORPUSCULAR VOLUME 80 fl (80-97); PLATELET COUNT 155 10^3/uL (150-450); RED BLOOD COUNT 3.47 10^6/uL (3.72-5.28); RED CELL DISTRIBUTION WIDTH 14.8 % (11.5-14.0); WHITE BLOOD COUNT 7.5 10^3/uL (4.0-10.5)
[2019-12-31 06:26] LABS: ANION GAP 6 (5-19); BLOOD UREA NITROGEN 44 mg/dL (7-20); CARBON DIOXIDE 25 mmol/L (22-30); CHLORIDE 103 mmol/L (98-107); GLUCOSE 95 mg/dL (75-110); POTASSIUM 4.9 mmol/L (3.6-5.0)
[2019-12-31] MEDS: PANTOPRAZOLE SODIUM 40 MG TABLET.DR PO SCH (06:39)
[2019-12-31] MEDS: HEPARIN SOD (PORCINE) 5,000 UNIT/ML 1 ML VIAL SUBCUT SCH ×3 (06:39→21:30)
[2019-12-31] MEDS: DOCUSATE SODIUM 100 MG CAPSULE PO SCH ×2 (09:04→17:28)
[2019-12-31] MEDS: ACETAMINOPHEN 325 MG TABLET PO PRN (09:04)
[2019-12-31] MEDS ORDERED: CEFTRIAXONE 1 GM/D5W RTU 1 GM/50 ML RTUPB IV SCH (10:00)
[2019-12-31] MEDS ORDERED: DIPHENHYDRAMINE HCL 50 MG/ML VIAL IV PRN (14:30)
--- NOTE | 2019-12-31 14:35 | PDOC PROGRESS REPORT ---
Subjective Progress Note for:: 12/31/19 Subjective:: Patient complains about itching which she states is due to her CKD. Also having pain in the right shoulder and back since her fall. Denies shortness of breath or loss of consciousness. Reason For Visit: ACUTE L1 COMPRESSION FRACTURE, PYURIA, BACK PAIN Physical Exam Vital Signs: Temp Pulse Resp BP Pulse Ox 98.0 F 68 15 102/41 L 92 12/31/19 08:00 12/31/19 08:00 12/31/19 08:00 12/31/19 08:00 12/31/19 13:17 Intake & Output 12/30/19 12/31/19 01/01/20 06:59 06:59 06:59 Intake Total 350 Balance 350 Weight 90.6 kg General appearance: PRESENT: no acute distress, cooperative Neck exam: ABSENT: JVD Respiratory exam: PRESENT: symmetrical, unlabored. ABSENT: tachypnea, wheezes Cardiovascular exam: PRESENT: +S1, +S2. ABSENT: tachycardia GI/Abdominal exam: PRESENT: hernia, soft. ABSENT: tenderness Neurological exam: PRESENT: alert, awake Results Laboratory Results: 12/31/19 05:47 12/31/19 05:47 12/30/19 12/30/19 12/30/19 18:00 18:00 18:00 WBC 7.9 RBC 3.63 L Hgb 9.3 L Hct 28.9 L MCV 80 MCH 25.7 L MCHC 32.3 RDW 15.6 H Plt Count 186 Seg Neutrophils % 79.0 H Sodium 132.3 L Potassium 5.0 Chloride 102 Carbon Dioxide 25 Anion Gap 5 BUN 42 H Creatinine 2.17 H Est GFR ( Amer) 26 L Glucose 112 H Lactic Acid 1.0 Calcium 9.3 Magnesium Total Bilirubin 0.3 AST 27 Alkaline Phosphatase 55 Total Protein 6.4 Albumin 4.0 TSH Urine Color Urine Appearance Urine pH Ur Specific [place] Urine Protein Urine Glucose (UA) Urine Ketones Urine Blood Urine Nitrite Ur Leukocyte Esterase Urine WBC (Auto) Urine RBC (Auto) 12/30/19 12/31/19 12/31/19 18:00 05:47 05:47 WBC 7.5 RBC 3.47 L Hgb 9.1 L Hct 27.7 L MCV 80 MCH 26.1 L MCHC 32.7 RDW 14.8 H Plt Count 155 Seg Neutrophils % Sodium 133.5 L Potassium 4.9 Chloride 103 Carbon Dioxide 25 Anion Gap 6 BUN 44 H Creatinine 2.28 H Est GFR ( Amer) 25 L Glucose 95 Lactic Acid Calcium 9.0 Magnesium 2.2 Total Bilirubin AST Alkaline Phosphatase Total Protein Albumin TSH Urine Color YELLOW Urine Appearance CLEAR Urine pH 6.0 Ur Specific [place] 1.012 Urine Protein NEGATIVE Urine Glucose (UA) NEGATIVE Urine Ketones NEGATIVE Urine Blood SMALL H Urine Nitrite NEGATIVE Ur Leukocyte Esterase LARGE H Urine WBC (Auto) 18 Urine RBC (Auto) 3 12/31/19 05:47 WBC RBC Hgb Hct MCV MCH MCHC RDW Plt Count Seg Neutrophils % Sodium Potassium Chloride Carbon Dioxide Anion Gap BUN Creatinine Est GFR ( Amer) Glucose Lactic Acid Calcium Magnesium Total Bilirubin AST Alkaline Phosphatase Total Protein Albumin TSH 5.69 H Urine Color Urine Appearance Urine pH Ur Specific [place] Urine Protein Urine Glucose (UA) Urine Ketones Urine Blood Urine Nitrite Ur Leukocyte Esterase Urine WBC (Auto) Urine RBC (Auto) Impressions: Abdomen/Pelvis CT 12/30/19 18:23 IMPRESSION: 1. New L1 compression fracture with 15% loss of height. This appears to be an acute fracture. No destructive bone lesions. 2. Large right inguinal hernia containing fat which is stable. 3. Diverticulosis. No evidence of diverticulitis. 4. No acute process in the abdomen or pelvis. Assessment and Plan - Diagnosis (1) Compression fracture of L1 lumbar vertebra Qualifiers: Encounter type: initial encounter Qualified Code(s): S32.010A - Wedge compression fracture of first lumbar vertebra, initial encounter for closed fracture Is this a current diagnosis for this admission?: Yes Plan: Noted on abdominal CT. Pain control. Orthopedics has been consulted-we will follow-up their recommendations. Physical and occupational therapy. (2) Chronic renal insufficiency, stage IV (severe) Is this a current diagnosis for this admission?: Yes Plan: Patient's creatinine is currently at her baseline. Does have chronic itching due to her CKD. Benadryl as needed. Avoid nephrotoxic meds. (3) Pyuria Is this a current diagnosis for this admission?: Yes Plan: Received 2 doses of IV ceftriaxone on Tuesday. Urine culture is negative. Patient does not have a true UTI so I will discontinue antibiotics. (4) Fall Qualifiers: Encounter type: initial encounter Qualified Code(s): W19.XXXA - Unspecified fall, initial encounter Is this a current diagnosis for this admission?: Yes Plan: Mechanical fall is likely secondary to both blindness and some physical deconditioning. Physical therapy evaluation to ensue. (5) Acquired blindness of both eyes Is this a current diagnosis for this admission?: Yes (6) Anemia due to stage 4 chronic kidney disease Is this a current diagnosis for this admission?: Yes (7) Hypertension Qualifiers: Hypertension type: essential hypertension Qualified Code(s): I10 - Essential (primary) hypertension Is this a current diagnosis for this admission?: Yes Plan: Valsartan. BP is currently controlled. (8) Hypothyroid Qualifiers: Hypothyroidism type: unspecified Qualified Code(s): E03.9 - Hypothyroidism, unspecified Is this a current diagnosis for this admission?: Yes Plan: TSH is elevated at 5.69. I will increase Synthroid from 0.05-0.075. - Time Time Spent with patient: 15-24 minutes
--- NOTE | 2019-12-31 15:15 | RADIOLOGY REPORT (SQ) ---
EXAM DESCRIPTION: SHOULDER RIGHT 2 OR MORE VIEWS IMAGES COMPLETED DATE/TIME: 12/31/2019 3:04 pm REASON FOR STUDY: shoulder pain following fall COMPARISON: None. NUMBER OF VIEWS: Three views. TECHNIQUE: Internal rotation, external rotation, and Y view images acquired of the right shoulder. LIMITATIONS: None. FINDINGS: MINERALIZATION: Osteopenia. BONES: No acute fracture. No worrisome bone lesions. JOINTS: No dislocation. Joint space narrowing in the AC joint and glenohumeral joint. VISUALIZED LUNGS AND RIBS: No pneumothorax. No rib fracture. SOFT TISSUES: No radiopaque foreign body. OTHER: Probable old healed distal clavicular fracture. IMPRESSION: Osteopenia. Degenerative changes in the AC joint and glenohumeral joint. No acute frac ture or dislocation. TECHNICAL DOCUMENTATION: JOB ID: [id number] [employer]- All Rights Reserved Reading location - IP/workstation name: [email or web address]
[2019-12-31] MEDS ORDERED: ONDANSETRON HCL INJ/PF 4 MG/2 ML SDV IV PRN (15:30)
--- NOTE | 2019-12-31 15:44 | PDOC CONSULTATION ---
Consultation Consult Date: 12/31/19 Provider Consulted: KEVIN TORIBIO JR History of Present Illness Admission Date/PCP: 12/30/19 21:29 TIERA LUGO MD History of Present Illness: TARAN MANZANARES is a 84 year old female who presented to the emergency department due to a fall with acute low back pain. She has a history of multiple falls. She reports that she fell twice that day first landing directly on her butt second time landing on her left shoulder. She also reports a history of constipation with pain in the lower sacral area pain is aching in nature worse with activity improved with rest. She takes pain medications including Tylenol with some relief. She denies lower extremity weakness or loss of sensation. She denies crepitance or inability to move left upper extremity. She denies saddle anesthesia or loss of bladder control. 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 Denies: Ears - Hearing aids Neurological Medical History: Denies: Hemorrhagic CVA, Ischemic CVA, Seizures Endocrine Medical History: Reports: Hypothyroidism, Obesity Denies: Diabetes Mellitus Type 1, Diabetes Mellitus Type 2, Hyperthyroidism Renal/ Medical History: Reports: Chronic Kidney Disease, End Stage Renal Disease - Stage IV Denies: Nephrolithiasis Malignancy Medical History: Reports: None, Skin Cancer - Squamous cell GI Medical History: Reports: Diverticulitis, Gastroesophageal Reflux Disease, Hiatal Hernia, Peptic Ulcer Disease Denies: Cirrhosis, Hepatitis Musculoskeltal Medical History: Reports: Arthritis Denies: Fibromyalgia Skin Medical History: Denies: Eczema, Psoriasis Psychiatric Medical History: Denies: Alcohol Dependency, Depression, Substance Abuse, Tobacco Dependency Traumatic Medical History: Reports: None Hematology: Reports: Anemia - Chronic due to CKD, Bleeding Tendencies Denies: Sickle Cell Disease Infectious Medical History: Reports: None Past Surgical History Past Surgical History: Reports: Appendectomy, Cholecystectomy, Hysterectomy, Orthopedic Surgery - stas tkr x 2 , foot , hand, carpal tunnel surgery of the right wrist, Tonsillectomy, Other - EGD, hemorrhoidectomy, colonoscopy, cataract extraction Denies: Amputation Social History Lives with: Family Smoking Status: Former Smoker Electronic Cigarette use?: No Frequency of Alcohol Use: None Hx Recreational Drug Use: No Drugs: None Hx Prescription Drug Abuse: No - Advance Directive Resuscitation Status: Full Code Family History Family History: CAD, Hypertension Parental Family History Reviewed: No Children Family History Reviewed: NA Sibling(s) Family History Reviewed.: NA Medication/Allergy Home Medications: Furosemide [Lasix] 20 mg PO QAM 10/19/16 Levothyroxine Sodium [Synthroid] 50 mcg PO Q6AM 10/19/16 Pantoprazole Sodium [Protonix] 40 mg PO BID 10/19/16 Valsartan [Diovan 160 mg Tablet] 160 mg PO QAM 10/19/16 Cetirizine HCl [Zyrtec 10 mg Tablet] 10 mg PO DAILY 12/31/19 Ergocalciferol (Vitamin D2) [Drisdol 50,000 unit (1.25MG) Capsule] 50,000 unit PO SA@1000 12/31/19 Fluticasone Propionate [Flonase Nasal [place] 50 Mcg/[place] 16 gm] 2 spray NASL BID 12/31/19 Allergies/Adverse Reactions: Sulfa (Sulfonamide Antibiotics) Allergy (Intermediate, Verified 04/29/18 07:01) Generalized Itching Review of Systems Review of Systems: Constitutional: ABSENT: anorexia, chills, night sweats Cardiovascular: ABSENT: chest pain Respiratory: ABSENT: dyspnea Gastrointestinal: ABSENT: vomiting Genitourinary: ABSENT: dysuria Integumentary: ABSENT: rash Neurological: ABSENT: confusion, memory loss, numbness Psychiatric: ABSENT: hallucinations Hematologic/Lymphatic: ABSENT: easy bleeding Physical Exam Vital Signs: Temp Pulse Resp BP Pulse Ox 98.0 F 68 15 102/41 L 92 12/31/19 08:00 12/31/19 08:00 12/31/19 08:00 12/31/19 08:00 12/31/19 13:17 Intake & Output 12/30/19 12/31/19 01/01/20 06:59 06:59 06:59 Intake Total 350 Balance 350 Weight 90.6 kg Physical Exam: General appearance: PRESENT: no acute distress, cooperative, well-nourished, obese Head exam: PRESENT: atraumatic, normocephalic Eye exam: PRESENT: EOMI, Low visual acuity Ear exam: PRESENT: normal external ear exam Mouth exam: PRESENT: neck supple Neck exam: ABSENT: tracheal deviation Respiratory exam: PRESENT: symmetrical, unlabored. ABSENT: accessory muscle use, wheezes Pulses: PRESENT: normal radial pulses, normal dorsalis pedis pulse Vascular exam: PRESENT: normal capillary refill GI/Abdominal exam: ABSENT: distended, firm Extremities exam: PRESENT: full ROM of bilateral shoulders, elbows wrists, knees, hips and ankles without pain Musculoskeletal exam: PRESENT: full ROM, normal inspection of all 4 extremities aside from that noted below. Neurological exam: PRESENT: alert, awake, oriented to person, oriented to place, oriented to time Psychiatric exam: PRESENT: appropriate affect. ABSENT: agitated Focused psych exam: ABSENT: catatonic Skin exam: PRESENT: intact. ABSENT: dry All as above aside from that noted in the HPI and the following: Lumbar spine Pain with any range of motion of the left lower extremity localized to the low back. Tenderness to palpation at the lumbar spine especially the SI joint on the left. Paraspinal muscular tenderness in the lumbar spine. 5 out of 5 EHL and TA function bilaterally, sensation is grossly intact bilaterally. Pulses 2+ bilaterally. Left upper extremity has full range of motion to active and passive range of motion no crepitus palpable. No loss of motor function distal, no deformity, pulses 2+. Skin is intact. Results Laboratory Results: 12/31/19 05:47 12/31/19 05:47 12/30/19 12/30/19 12/30/19 18:00 18:00 18:00 WBC 7.9 RBC 3.63 L Hgb 9.3 L Hct 28.9 L MCV 80 MCH 25.7 L MCHC 32.3 RDW 15.6 H Plt Count 186 Seg Neutrophils % 79.0 H Sodium 132.3 L Potassium 5.0 Chloride 102 Carbon Dioxide 25 Anion Gap 5 BUN 42 H Creatinine 2.17 H Est GFR ( Amer) 26 L Glucose 112 H Lactic Acid 1.0 Calcium 9.3 Magnesium Total Bilirubin 0.3 AST 27 Alkaline Phosphatase 55 Total Protein 6.4 Albumin 4.0 TSH Urine Color Urine Appearance Urine pH Ur Specific [place] Urine Protein Urine Glucose (UA) Urine Ketones Urine Blood Urine Nitrite Ur Leukocyte Esterase Urine WBC (Auto) Urine RBC (Auto) 12/30/19 12/31/19 12/31/19 18:00 05:47 05:47 WBC 7.5 RBC 3.47 L Hgb 9.1 L Hct 27.7 L MCV 80 MCH 26.1 L MCHC 32.7 RDW 14.8 H Plt Count 155 Seg Neutrophils % Sodium 133.5 L Potassium 4.9 Chloride 103 Carbon Dioxide 25 Anion Gap 6 BUN 44 H Creatinine 2.28 H Est GFR ( Amer) 25 L Glucose 95 Lactic Acid Calcium 9.0 Magnesium 2.2 Total Bilirubin AST Alkaline Phosphatase Total Protein Albumin TSH Urine Color YELLOW Urine Appearance CLEAR Urine pH 6.0 Ur Specific [place] 1.012 Urine Protein NEGATIVE Urine Glucose (UA) NEGATIVE Urine Ketones NEGATIVE Urine Blood SMALL H Urine Nitrite NEGATIVE Ur Leukocyte Esterase LARGE H Urine WBC (Auto) 18 Urine RBC (Auto) 3 12/31/19 05:47 WBC RBC Hgb Hct MCV MCH MCHC RDW Plt Count Seg Neutrophils % Sodium Potassium Chloride Carbon Dioxide Anion Gap BUN Creatinine Est GFR ( Amer) Glucose Lactic Acid Calcium Magnesium Total Bilirubin AST Alkaline Phosphatase Total Protein Albumin TSH 5.69 H Urine Color Urine Appearance Urine pH Ur Specific [place] Urine Protein Urine Glucose (UA) Urine Ketones Urine Blood Urine Nitrite Ur Leukocyte Esterase Urine WBC (Auto) Urine RBC (Auto) Impressions: Abdomen/Pelvis CT 12/30/19 18:23 IMPRESSION: 1. New L1 compression fracture with 15% loss of height. This appears to be an acute fracture. No destructive bone lesions. 2. Large right inguinal hernia containing fat which is stable. 3. Diverticulosis. No evidence of diverticulitis. 4. No acute process in the abdomen or pelvis. Shoulder X-Ray 12/31/19 00:00 IMPRESSION: Osteopenia. Degenerative changes in the AC joint and glenohumeral joint. No acute fracture or dislocation. Assessment & Plan - Diagnosis (1) Left shoulder pain Is this a current diagnosis for this admission?: Yes Plan: No current signs of bony injury. Encourage physical therapy left upper extremity range of motion activity as well as active full range of motion. (2) Compression fracture of L1 lumbar vertebra Qualifiers: Encounter type: initial encounter Qualified Code(s): S32.010A - Wedge compression fracture of first lumbar vertebra, initial encounter for closed fracture Is this a current diagnosis for this admission?: Yes Plan: -LSO brace -Heating pad -[id number] pain control, may include light narcotics. -Fractures does not appear severe enough to warrant kyphoplasty or other in terventional radiology -PT to encourage out of bed and activity of daily living exercises
[2019-12-31] MEDS: FLUTICASONE NASAL SPRAY 50 MCG/SPRY 120 SPRAY/16 GM NASL SCH (17:43)
[2019-12-31] MEDS: MELATONIN 5 MG TABLET PO PRN (21:31)
[2020-01-01] MEDS: HEPARIN SOD (PORCINE) 5,000 UNIT/ML 1 ML VIAL SUBCUT SCH ×2 (05:43→15:49)
[2020-01-01] MEDS: PANTOPRAZOLE SODIUM 40 MG TABLET.DR PO SCH (05:43)
[2020-01-01] MEDS ORDERED: LEVOTHYROXINE SODIUM 0.05 MG TABLET PO SCH ×2 (06:00)
[2020-01-01] MEDS ORDERED: LEVOTHYROXINE SODIUM 0.075 MG TABLET PO SCH (06:00)
[2020-01-01] MEDS ORDERED: VALSARTAN 160 MG TABLET PO SCH (08:00)
[2020-01-01] MEDS ORDERED: FUROSEMIDE 20 MG TABLET PO SCH (08:00)
[2020-01-01] MEDS: DOCUSATE SODIUM 100 MG CAPSULE PO SCH (09:32)
[2020-01-01] MEDS: FLUTICASONE NASAL SPRAY 50 MCG/SPRY 120 SPRAY/16 GM NASL SCH (09:34)
[2020-01-01] MEDS ORDERED: CETIRIZINE 10 MG TABLET PO SCH (10:00)
[2020-01-01] MEDS ORDERED: BISACODYL 10 MG SUPP.RECT PR ONE (10:30)
--- NOTE | 2020-01-01 11:18 | PDOC DISCHARGE SUMMARY ---
Impression - Admit/DC Date/PCP Admission Date/Primary Care Provider: 12/30/19 21:29 TIERA LUGO MD Discharge Date: 01/01/20 - Discharge Diagnosis (1) Compression fracture of L1 lumbar vertebra Is this a current diagnosis for this admission?: Yes (2) Chronic renal insufficiency, stage IV (severe) Is this a current diagnosis for this admission?: Yes (3) Pyuria Is this a current diagnosis for this admission?: Yes (4) Fall Is this a current diagnosis for this admission?: Yes (5) Acquired blindness of both eyes Is this a current diagnosis for this admission?: Yes (6) Anemia due to stage 4 chronic kidney disease Is this a current diagnosis for this admission?: Yes (7) Hypertension Is this a current diagnosis for this admission?: Yes (8) Hypothyroid Is this a current diagnosis for this admission?: Yes (9) Constipation Is this a current diagnosis for this admission?: Yes - Additional Information Resuscitation Status: Full Code Discharge Diet: As Tolerated Discharge Activity: Activity As Tolerated Referrals: CHRISTOPHER AHUMADA MD [ACTIVE STAFF] - Follow up as needed KEVIN TORIBIO JR, DO [ACTIVE PROVISIONAL STAFF] - Prescriptions: Ibuprofen [Motrin 400 mg Tablet] 400 mg PO TIDP PRN #30 tablet PRN Reason: For Pain Sennosides/Docusate 8.6-50 mg [Senna Plus Tablet] 2 tab PO BID #120 tab Levothyroxine Sodium [Synthroid 0.075 mg Tablet] 0.075 mg PO Q6AM #30 tablet Tramadol HCl [Ultram 50 mg Tablet] 50 mg PO BIDP PRN #15 tablet PRN Reason: Home Medications: Furosemide [Lasix] 20 mg PO QAM 10/19/16 Pantoprazole Sodium [Protonix] 40 mg PO BID 10/19/16 Valsartan [Diovan 160 mg Tablet] 160 mg PO QAM 10/19/16 Cetirizine HCl [Zyrtec 10 mg Tablet] 10 mg PO DAILY 12/31/19 Ergocalciferol (Vitamin D2) [Drisdol 50,000 unit (1.25MG) Capsule] 50,000 unit PO SA@1000 12/31/19 Fluticasone Propionate [Flonase Nasal [place] 50 Mcg/[place] 16 gm] 2 spray NASL BID 12/31/19 Acetaminophen [Tylenol 325 mg Tablet] 650 mg PO Q4HP PRN tablet 01/01/20 Ibuprofen [Motrin 400 mg Tablet] 400 mg PO TIDP PRN #30 tablet 01/01/20 Levothyroxine Sodium [Synthroid 0.075 mg Tablet] 0.075 mg PO Q6AM #30 tablet 01/01/20 Sennosides/Docusate 8.6-50 mg [Senna Plus Tablet] 2 tab PO BID #120 tab 01/01/20 Tramadol HCl [Ultram 50 mg Tablet] 50 mg PO BIDP PRN #15 tablet 01/01/20 History of Present Illiness History of Present Illness: According to admitting provider: TARAN MANZANARES is a 84 year old female who presented to the emergency room with acute low back pain. She is blind and admits having fallen at home after losing her balance getting up from the toilet. She fell to the floor landing on her buttocks and began experiencing moderate localized lumbar back pain worsened by movement, and then fell again as she was trying to get up, all of which precipitated her visit to the emergency room. She details that she had been constipated for 2 days and got up last night to go to the bathroom resulting in a large diarrhea stool however she continues to feel constipated/obstipated. She denies other associated or accompanying signs and symptoms. She denies prior similar episodes. She has not identified any additional aggravating or ameliorating factors for her low back pain. In the emergency room she was found to have an acute compression fracture of the L1 vertebrae with a 15% loss of vertebral height. She was also noted to have pyuria. She was subsequently admitted for further evaluation and treatment. Hospital Course Hospital Course: (1) Compression fracture of L1 lumbar vertebra Qualifiers: Encounter type: initial encounter Qualified Code(s): S32.010A - Wedge compression fracture of first lumbar vertebra, initial encounter for closed fracture Is this a current diagnosis for this admission?: Yes Plan: 2/2 to mechanical fall. Noted on abdominal CT. Pain control. Orthopedics recommended no surgical or IR intervention needed and recommended using LSO back brace. Discharge on Tylenol, ibuprofen for pain and tramadol for severe pain. Evaluated by physical therapy who stated patient required only minimal assistance while ambulating and only required help when standing up. Patient wishes to go home. Set up for home PT and OT as well as shelter for medication management. (2) Chronic renal insufficiency, stage IV (severe) Is this a current diagnosis for this admission?: Yes Plan: Patient's creatinine is currently at her baseline. Does have chronic itching due to her CKD. Avoid nephrotoxic meds. Continue follow-up with Dr. Ahumada. (3) Pyuria Is this a current diagnosis for this admission?: Yes Plan: Received 2 doses of IV ceftriaxone. Urine culture is negative. Patient does not have a true UTI so I discontinued antibiotics. (4) Fall Qualifiers: Encounter type: initial encounter Qualified Code(s): W19.XXXA - Unspecified fall, initial encounter Is this a current diagnosis for this admission?: Yes Plan: Mechanical fall is likely secondary to both blindness and some physical deconditioning. Physical therapy evaluation to ensue. (5) Acquired blindness of both eyes Is this a current diagnosis for this admission?: Yes (6) Anemia due to stage 4 chronic kidney disease Is this a current diagnosis for this admission?: Yes (7) Hypertension Qualifiers: Hypertension type: essential hypertension Qualified Code(s): I10 - Essential (primary) hypertension Is this a current diagnosis for this admission?: Yes Plan: Valsartan. BP is currently controlled. (8) Hypothyroid Qualifiers: Hypothyroidism type: unspecified Qualified Code(s): E03.9 - Hypothyroidism, unspecified Is this a current diagnosis for this admission?: Yes Plan: TSH is elevated at 5.69. I increased Synthroid from 0.05-0.075. (9) constipation Received a dose of Dulcolax suppository today. Patient discharged with docusate/senna twice daily. Has MiraLAX at home. Physical Exam Vital Signs: Temp Pulse Resp BP Pulse Ox 97.5 F 71 19 134/50 H 94 01/01/20 09:24 01/01/20 09:24 01/01/20 09:24 01/01/20 09:24 01/01/20 09:24 Intake & Output 12/31/19 01/01/20 01/02/20 06:59 06:59 06:59 Intake Total 350 2390 340 Output Total 950 200 Balance 350 1440 140 Weight 90.6 kg 90.6 kg General appearance: PRESENT: no acute distress, cooperative Neck exam: ABSENT: JVD Respiratory exam: PRESENT: clear to auscultation stas, unlabored. ABSENT: tachypnea, wheezes Cardiovascular exam: PRESENT: +S1, +S2. ABSENT: tachycardia GI/Abdominal exam: PRESENT: soft. ABSENT: rebound, rigid, tenderness Neurological exam: PRESENT: alert, awake, oriented to person, oriented to place, oriented to time Results Laboratory Results: WBC 7.5 10^3/uL (4.0-10.5) 12/31/19 05:47 RBC 3.47 10^6/uL (3.72-5.28) L 12/31/19 05:47 Hgb 9.1 g/dL (12.0-15.5) L 12/31/19 05:47 Hct 27.7 % (36.0-47.0) L 12/31/19 05:47 MCV 80 fl (80-97) 12/31/19 05:47 MCH 26.1 pg (27.0-33.4) L 12/31/19 05:47 MCHC 32.7 g/dL (32.0-36.0) 12/31/19 05:47 RDW 14.8 % (11.5-14.0) H 12/31/19 05:47 Plt Count 155 10^3/uL (150-450) 12/31/19 05:47 Lymph % (Auto) 10.1 % (13-45) L 12/30/19 18:00 [place] % (Auto) 9.4 % (3-13) 12/30/19 18:00 Eos % (Auto) 0.7 % (0-6) 12/30/19 18:00 Baso % (Auto) 0.8 % (0-2) 12/30/19 18:00 Absolute Neuts (auto) 6.2 10^3/uL (1.7-8.2) 12/30/19 18:00 Absolute Lymphs (auto) 0.8 10^3/uL (0.5-4.7) 12/30/19 18:00 Absolute Monos (auto) 0.7 10^3/uL (0.1-1.4) 12/30/19 18:00 Absolute Eos (auto) 0.1 10^3/uL (0.0-0.6) 12/30/19 18:00 Absolute Basos (auto) 0.1 10^3/uL (0.0-0.2) 12/30/19 18:00 Seg Neutrophils % 79.0 % (42-78) H 12/30/19 18:00 Sodium 133.5 mmol/L (137-145) L 12/31/19 05:47 Potassium 4.9 mmol/L (3.6-5.0) 12/31/19 05:47 Chloride 103 mmol/L (98-107) 12/31/19 05:47 Carbon Dioxide 25 mmol/L (22-30) 12/31/19 05:47 Anion Gap 6 (5-19) 12/31/19 05:47 BUN 44 mg/dL (7-20) H 12/31/19 05:47 Creatinine 2.28 mg/dL (0.52-1.25) H 12/31/19 05:47 Est GFR ( Amer) 25 (>60) L 12/31/19 05:47 Est GFR (MDRD) Non-Af 20 (>60) L 12/31/19 05:47 Glucose 95 mg/dL (75-110) 12/31/19 05:47 Lactic Acid 1.0 mmol/L (0.7-2.1) 12/30/19 18:00 Calcium 9.0 mg/dL (8.4-10.2) 12/31/19 05:47 Magnesium 2.2 mg/dL (1.6-2.3) 12/31/19 05:47 Total Bilirubin 0.3 mg/dL (0.2-1.3) 12/30/19 18:00 Direct Bilirubin 0.0 mg/dL (0.0-0.4) 12/30/19 18:00 Neonat Total Bilirubin Not Reportable 12/30/19 18:00 Neonat Direct Bilirubin Not Reportable 12/30/19 18:00 Neonat Indirect Bili Not Reportable 12/30/19 18:00 AST 27 U/L (14-36) 12/30/19 18:00 ALT 15 U/L (<35) 12/30/19 18:00 Alkaline Phosphatase 55 U/L (38-126) 12/30/19 18:00 Total Protein 6.4 g/dL (6.3-8.2) 12/30/19 18:00 Albumin 4.0 g/dL (3.5-5.0) 12/30/19 18:00 TSH 5.69 uIU/mL (0.47-4.68) H 12/31/19 05:47 Urine Color YELLOW 12/30/19 18:00 Urine Appearance CLEAR 12/30/19 18:00 Urine pH 6.0 (5.0-9.0) 12/30/19 18:00 Ur Specific [place] 1.012 12/30/19 18:00 Urine Protein NEGATIVE mg/dL (NEGATIVE) 12/30/19 18:00 Urine Glucose (UA) NEGATIVE mg/dL (NEGATIVE) 12/30/19 18:00 Urine Ketones NEGATIVE mg/dL (NEGATIVE) 12/30/19 18:00 Urine Blood SMALL (NEGATIVE) H 12/30/19 18:00 Urine Nitrite NEGATIVE (NEGATIVE) 12/30/19 18:00 Urine Bilirubin NEGATIVE (NEGATIVE) 12/30/19 18:00 Urine Urobilinogen NEGATIVE mg/dL (<2.0) 12/30/19 18:00 Ur Leukocyte Esterase LARGE (NEGATIVE) H 12/30/19 18:00 Urine WBC (Auto) 18 /HPF 12/30/19 18:00 Urine RBC (Auto) 3 /HPF 12/30/19 18:00 U Hyaline Cast (Auto) 1 /LPF 12/30/19 18:00 Squamous Epi Cells Auto 1 /HPF 12/30/19 18:00 Urine Mucus (Auto) RARE /LPF 12/30/19 18:00 Urine Ascorbic Acid NEGATIVE (NEGATIVE) 12/30/19 18:00 Impressions: Abdomen/Pelvis CT 12/30/19 18:23 IMPRESSION: 1. New L1 compression fracture with 15% loss of height. This appears to be an acute fracture. No destructive bone lesions. 2. Large right inguinal hernia containing fat which is stable. 3. Diverticulosis. No evidence of diverticulitis. 4. No acute process in the abdomen or pelvis. Shoulder X-Ray 12/31/19 00:00 IMPRESSION: Osteopenia. Degenerative changes in the AC joint and glenohumeral joint. No acute fracture or dislocation. Plan Time Spent: Less than 30 Minutes Stroke Is this a Stroke Patient?: No Acute Heart Failure - Is this a Heart Failure Patient?: No
[2020-01-01] MEDS: ACETAMINOPHEN 325 MG TABLET PO PRN (14:32)
[2020-01-01 15:40] VITALS: BP 159/73
[2020-01-05] MEDS ORDERED: ERGOCALCIFEROL (VITAMIN D2) 50000 UNIT (1.25 MG) CAPSULE PO SCH (10:00)
== END 2020-01-01 15:55 | disposition home health service (06) | DRG 552 ==
LOC: ER 17:53 → EH 21:29 → 4S 23:25
PROVIDERS: ADMIT Emergency Medicine; ATTEND Internal Medicine
DX: S32.010A Wedge compression fracture of first lumbar vertebra, initial encounter for closed fracture (principal); I13.0 Hypertensive heart and chronic kidney disease with heart failure and stage 1 through stage 4 chronic kidney disease, or unspecified chronic kidney disease; N18.4 Chronic kidney disease, stage 4 (severe); N39.0 Urinary tract infection, site not specified; D63.1 Anemia in chronic kidney disease; I50.9 Heart failure, unspecified; I25.10 Atherosclerotic heart disease of native coronary artery without angina pectoris; E03.9 Hypothyroidism, unspecified; K21.9 Gastro-esophageal reflux disease without esophagitis; H54.7 Unspecified visual loss; M19.90 Unspecified osteoarthritis, unspecified site; M25.512 Pain in left shoulder; M54.9 Dorsalgia, unspecified; K59.00 Constipation, unspecified; W18.11XA Fall from or off toilet without subsequent striking against object, initial encounter; Y93.89 Activity, other specified; Y92.012 Bathroom of single-family (private) house as the place of occurrence of the external cause
CPT/HCPCS: 36415; 74176; 80048; 80053; 81001; 83605; 83735; 84443; 85025; 85027; 87086; 94660; 96365; 96375; 96376; 99285; J0696; J1200; J1644; J2270; J2405; J3010; J3490

== ENCOUNTER → 2020-03-10 | Outpatient (CLI) | payer MEDICARE, OTHER ==
[2020-03-10 07:37] LABS: ABSOLUTE EOSINOPHILS # (AUTO) 0.1 10^3/uL (0.0-0.6); ABSOLUTE LYMPHOCYTES (AUTO) 1.1 10^3/uL (0.5-4.7); ABSOLUTE MONOCYTES (AUTO) 0.6 10^3/uL (0.1-1.4); BASOPHILS % (AUTO) 0.9 % (0-2); EOSINOPHILS % (AUTO) 1.2 % (0-6); HEMATOCRIT 38.2 % (36.0-47.0); HEMOGLOBIN 12.8 g/dL (12.0-15.5); LYMPHOCYTES % (AUTO) 19.5 % (13-45); MEAN CORPUSCULAR HGB CONC 33.7 g/dL (32.0-36.0); MEAN CORPUSCULAR VOLUME 86 fl (80-97); MONOCYTES % (AUTO) 9.6 % (3-13); PLATELET COUNT 165 10^3/uL (150-450); RED BLOOD COUNT 4.43 10^6/uL (3.72-5.28); RED CELL DISTRIBUTION WIDTH 21.4 % (11.5-14.0); SEGMENTED NEUTROPHILS % (AUTO) 68.8 % (42-78); TOTAL CELLS COUNTED % (AUTO) 100 %; WHITE BLOOD COUNT 5.9 10^3/uL (4.0-10.5)
[2020-03-10 07:48] LABS: ANION GAP 8 (5-19); BLOOD UREA NITROGEN 34 mg/dL (7-20); CALCIUM 9.3 mg/dL (8.4-10.2); CARBON DIOXIDE 24 mmol/L (22-30); CHLORIDE 106 mmol/L (98-107); GLUCOSE 103 mg/dL (75-110); IRON(TIBC) 77.4 ug/dL (37-170); POTASSIUM 4.7 mmol/L (3.6-5.0)
[2020-03-10 08:05] LABS: ANISOCYTOSIS 3+
[2020-03-10 08:08] LABS: POIKILOCYTOSIS 1+; POLYCHROMASIA SLIGHT
[2020-03-10 08:10] LABS: PLATELET COMMENT ADEQUATE
[2020-03-10 15:13] LABS: APPEARANCE,URINE CLEAR; BILIRUBIN,URINE NEGATIVE (NEGATIVE); COLOR,URINE STRAW; GLUCOSE, URINE NEGATIVE (NEGATIVE); KETONES,URINE NEGATIVE (NEGATIVE); LEUKOCYTE ESTERASE,URINE NEGATIVE (NEGATIVE); NITRITE,URINE NEGATIVE (NEGATIVE); PROTEIN,URINE NEGATIVE (NEGATIVE); URINE SPECIFIC GRAVITY 1.005; UROBILINOGEN,URINE NEGATIVE mg/dL (<2.0)
== END ==
LOC: OD 07:07
PROVIDERS: ATTEND Internal Medicine Nephrology
DX: I12.9 Hypertensive chronic kidney disease with stage 1 through stage 4 chronic kidney disease, or unspecified chronic kidney disease (principal); N18.4 Chronic kidney disease, stage 4 (severe); D63.1 Anemia in chronic kidney disease; N25.81 Secondary hyperparathyroidism of renal origin
CPT/HCPCS: 36415; 80048; 81001; 82043; 82570; 82728; 83540; 83550; 83970; 84100; 85025; 87086; 87088

== ENCOUNTER 2020-06-21 09:02 | Emergency (ER) | payer MEDICARE, OTHER ==
[2020-06-21 09:14] VITALS: BP 181/70
[2020-06-21 10:18] LABS: ABSOLUTE BASOPHILS # (AUTO) 0.1 10^3/uL (0.0-0.2); ABSOLUTE EOSINOPHILS # (AUTO) 0.1 10^3/uL (0.0-0.6); ABSOLUTE LYMPHOCYTES (AUTO) 0.8 10^3/uL (0.5-4.7); ABSOLUTE MONOCYTES (AUTO) 0.7 10^3/uL (0.1-1.4); ABSOLUTE NEUT (AUTO) 5.6 10^3/uL (1.7-8.2); BASOPHILS % (AUTO) 1.2 % (0-2); EOSINOPHILS % (AUTO) 1.4 % (0-6); HEMATOCRIT 36.9 % (36.0-47.0); HEMOGLOBIN 12.4 g/dL (12.0-15.5); LYMPHOCYTES % (AUTO) 11.5 % (13-45); MEAN CORPUSCULAR HEMOGLOBIN 29.1 pg (27.0-33.4); MEAN CORPUSCULAR HGB CONC 33.6 g/dL (32.0-36.0); MEAN CORPUSCULAR VOLUME 87 fl (80-97); MONOCYTES % (AUTO) 8.9 % (3-13); PLATELET COUNT 182 10^3/uL (150-450); RED BLOOD COUNT 4.25 10^6/uL (3.72-5.28); RED CELL DISTRIBUTION WIDTH 14.5 % (11.5-14.0); TOTAL CELLS COUNTED % (AUTO) 100 %; WHITE BLOOD COUNT 7.3 10^3/uL (4.0-10.5)
[2020-06-21 10:24] LABS: APPEARANCE,URINE CLEAR; BILIRUBIN,URINE NEGATIVE (NEGATIVE); COLOR,URINE YELLOW; GLUCOSE, URINE NEGATIVE (NEGATIVE); KETONES,URINE NEGATIVE (NEGATIVE); PROTEIN,URINE NEGATIVE (NEGATIVE); URINE SPECIFIC GRAVITY 1.009; UROBILINOGEN,URINE NEGATIVE mg/dL (<2.0)
[2020-06-21 10:38] LABS: ALBUMIN 3.9 g/dL (3.5-5.0); ALKALINE PHOSPHATASE 63 U/L (38-126); ANION GAP 6 (5-19); ASPARTATE AMINO TRANSFERASE 25 U/L (14-36); BILIRUBIN,DIRECT 0.2 mg/dL (0.0-0.4); BILIRUBIN,TOTAL 0.5 mg/dL (0.2-1.3); BLOOD UREA NITROGEN 31 mg/dL (7-20); CALCIUM 9.3 mg/dL (8.4-10.2); CARBON DIOXIDE 26 mmol/L (22-30); CHLORIDE 101 mmol/L (98-107); GLUCOSE 101 mg/dL (75-110); POTASSIUM 5.1 mmol/L (3.6-5.0); TOTAL PROTEIN 6.5 g/dL (6.3-8.2)
[2020-06-21] MEDS ORDERED: PANTOPRAZOLE SODIUM 40 MG VIAL IV ONE ×2 (11:10→13:13)
--- NOTE | 2020-06-21 11:28 | ER Document Report ---
ED General - General Chief Complaint: Abdominal Pain Stated Complaint: ABDOMINAL PAIN Time Seen by Provider: 06/21/20 10:34 Primary Care Provider: CHRISTOPHER AHUMADA MD [Primary Care Provider] - Follow up as needed TRAVEL OUTSIDE OF THE [place] IN LAST 30 DAYS: No - HPI Notes: Chief complaint: Abdominal pain History of present illness: Elderly female followed by Dr. Bryon Mcdonald with history of chronic kidney disease, degenerative arthritis of lumbar spine and chronic GERD presents for evaluation of chronic burning epigastric discomfort which she says is getting worse. Patient apparently was previously taking Protonix 40 mg twice daily. She says when she refilled her prescription about 2 weeks ago the instruction was to reduce this to once a day. She apparently has not been back to her doctor. She is reporting now that she is having intermitte nt burning epigastric discomfort. No nausea vomiting. Patient is chronically constipated. Says that she had a large bowel movement this morning and felt like "something popped" in epigastric area. She complains of severe burning at the moment. She denies any melena or hematochezia. Weight is stable. Reports that she has not had an upper GI endoscopy within the last year. - Related Data Allergies/Adverse Reactions: Sulfa (Sulfonamide Antibiotics) Allergy (Intermediate, Verified 04/29/18 07:01) Generalized Itching Past Medical History - General Information source: Patient, [facility] Records - Social History Smoking Status: Former Smoker Chew tobacco use (# tins/day): No Frequency of alcohol use: None Drug Abuse: None Family History: CAD, Hypertension Patient has homicidal ideation: No - Past Medical History Cardiac Medical History: Reports: Hx Congestive Heart Failure, Hx Coronary Artery Disease, Hx Hypertension Pulmonary Medical History: Reports: Hx Bronchitis, Hx Sleep Apnea Neurological Medical History: Denies: Hx Seizures Endocrine Medical History: Reports: Hx Hypothyroidism. Denies: Hx Diabetes Mellitus Type 1, Hx Diabetes Mellitus Type 2, Hx Hyperthyroidism Renal/ Medical History: Reports: Hx End Stage Renal Disease - Stage IV, Hx Renal Insufficiency. Denies: Hx Peritoneal Dialysis Malignancy Medical History: Reports: Hx Skin Cancer - Squamous cell GI Medical History: Reports: Hx Diverticulitis, Hx Gastritis, Hx Gastroesophageal Reflux Disease, Hx Hiatal Hernia, Hx Colonoscopy, Hx Endoscopy. Denies: Hx Cirrhosis, Hx Hepatitis Musculoskeletal Medical History: Reports Hx Arthritis, Denies Hx Fibromyalgia, Reports Hx Musculoskeletal Deformity, Reports Hx Musculoskeletal Trauma Skin Medical History: Denies Hx Eczema, Denies Hx Psoriasis Psychiatric Medical History: Denies: Hx Depression Infectious Medical History: Denies: Hx Hepatitis Past Surgical History: Reports: Hx Appendectomy, Hx Cholecystectomy, Hx Hysterectomy, Hx Orthopedic Surgery - stas tkr x 2 , foot , hand, carpal tunnel surgery of the right wrist, Hx Pancreatic Surgery, Hx Thyroid Surgery, Hx Tonsillectomy, Other - EGD, hemorrhoidectomy, colonoscopy, cataract extraction - Immunizations Hx Diphtheria, Pertussis, Tetanus Vaccination: No Hx Pneumococcal Vaccination: 03/20/10 Review of Systems - Review of Systems Notes: Constitutional: Negative for fever. HENT: Negative for sore throat. Eyes: Negative for visual changes. Cardiovascular: Negative for chest pain. Respiratory: Negative for shortness of breath. Gastrointestinal: As per HPI. Genitourinary: Negative for dysuria. Musculoskeletal: Chronic back pain. Skin: Negative for rash. Neurological: Negative for headaches, focal weakness or numbness. 10 point ROS negative except as marked above and in HPI. Physical Exam - Vital signs Vitals: Temp 98.5 F 06/21/20 09:03 - Notes Notes: GENERAL: Somewhat obese elderly female appearing in no acute. SKIN: Good turgor. Chronic actinic changes over the facial area. HEAD: Normocephalic atraumatic. EYES: PERRLA. EOMI. Conjunctivae and sclerae clear. EARS: CANALS AND TMS CLEAR. NOSE: CLEAR. MOUTH: Moist mucosa. Good dentition. No stridor or edema. No drooling. NECK: Supple. No masses or thyromegaly. No adenopathy. Carotids 2+ without bruits. No JVD. BACK: Symmetrical without tenderness. CHEST: Respirations unlabored. Breath sounds clear and symmetrical. HEART: Regular rhythm. No murmur gallop or rub. ABDOMEN: Obese with mild epigastric tenderness. Soft without masses, organomegaly or rebound. Bowel sounds normally active. No bruits. GENITALIA: Deferred. EXTREMITIES: No edema. No calf tenderness. Cap refill less than 1.5 seconds. Dorsalis pedis and posterior tibial pulses 3+ and symmetrical. NEUROLOGICAL: GCS 15. Alert and oriented x3. Fluent speech. Cranial nerves II through XII intact. Sensorimotor and cerebellar normal. Normal tone. PSYCHIATRIC: Flat affect. Course - Re-evaluation Re-evalutation: 06/21/20 14:56 Patient is hemodynamically stable. She has stable elevation of creatinine related to chronic kidney disease. Her lipase is mildly elevated which is also probably due to her renal disease. She was given GI cocktail here and also some Protonix which really did not improve her epigastric burning substantially. I gave her 1 dose of oral Percocet. She tells me that she has had 2 family members who with pancreatic cancer. We got a noncontrast CT abdomen pelvis which showed some mild diverticular disease of the colon and previously identified lumbar compression fracture with no other significant acute findings. I spoke with her daughter Mary by telephone and advised her that her mom want to have an endoscopy done in the near future as an outpatient procedure. Particularly in view of the large inpatient population of Covid patients at this time I do not think admission is in her best interest. I want to put her on some Carafate at home and make a referral to Dr. Kvng Miller (gastroenterology) for an outpatient EGD. They can also follow-up with primary care physician Dr. Bryon Duran this week. Findings, clinical impression and plan of treatment have been discussed with patient/family. Understanding of current findings and recommendations has been acknowledged by them and there is agreement regarding disposition and follow-up. - Vital Signs Vital signs: Temp Pulse Resp BP Pulse Ox 98.5 F 75 16 181/70 H 96 06/21/20 09:03 06/21/20 09:13 06/21/20 09:13 06/21/20 09:13 06/21/20 09:13 - Laboratory Results Result Diagrams: 06/21/20 09:46 06/21/20 09:46 Laboratory Results Interpreted: 06/21/20 06/21/20 09:46 09:46 RDW 14.5 H Lymph % (Auto) 11.5 L Sodium 133.0 L Potassium 5.1 H BUN 31 H Creatinine 2.05 H Est GFR ( Amer) 28 L Est GFR (MDRD) Non-Af 23 L Lipase 409.5 H Critical Laboratory Results Reviewed: Yes Attending or Supervising Physician who Reviewed Labs: ORIN GE - Radiology Results Radiology Results Interpreted: 06/21/20 15:04 Abdomen/Pelvis CT 06/21/20 11:11 IMPRESSION: 1. Recent compression fracture L1. Mild retropulsion. 2. Diverticulosis without evidence of diverticulitis. Critical Radiology Results Reviewed: Yes Attending or Supervising Physician who Reviewed Radiology: ORIN GE Discharge - Discharge Clinical Impression: GERD, CKD (chronic kidney disease) stage 4, GFR 15-29 ml/min GERD (gastroesophageal reflux disease) Qualifiers: Esophagitis presence: esophagitis presence not specified Qualified Code(s): K21 .9 - Gastro-esophageal reflux disease without esophagitis Condition: Stable Disposition: HOME, SELF-CARE Additional Instructions: Reflux Disease (GERD) Gastro-Esophageal Reflux Disease (GERD) is caused by stomach acid refluxing back up into the esophagus. The valve at the end of the esophagus may be weak. This is common in persons with a hiatal hernia. GERD symptoms can include indigestion, chest pain, heartburn, or food "sticking." Certain foods, alcohol, and aspirin can make GERD worse. Treatment depends on the severity. Usually, antacids or acid-suppressing medicines are used. When the esophagus is acutely inflamed, the physician will often prescribe membrane-protective drugs such as Carafate. You have been provided a prescription for this medication. Avoid those foods that bring on your symptoms. For many people, these foods are coffee, chocolate, onions, garlic, and carbonated drinks. Don't use alcohol, aspirin, caffeine, or tobacco. Don't eat late at night -- within 4 hours of bedtime. Don't over-eat. If necessary, elevate the head of your bed about 4 inches so that stomach acid will not roll up into your esophagus. Call the doctor if you develop severe chest pain, inability to swallow fluids, fever, or worsening symptoms. Due to the severity and persistence of your symptoms I feel you need further evaluation with an endoscopy test. I provided you the name of a gastroent erology specialist, Dr. Kvng Miller and I recommend that you call his office to schedule an appointment at your earliest convenience. Return here as needed for new or worsening symptoms: Pain that is worsening or unimproved Uncontrolled vomiting High fever or shaking chills Overall worsening Prescriptions: Sucralfate [Carafate 1 gm Tablet] 1 gm PO ACHS #120 tablet Referrals: CHRISTOPHER AHUMADA MD [Primary Care Provider] - Follow up as needed KVNG MILLER MD [ACTIVE STAFF] - Follow up as needed
--- NOTE | 2020-06-21 11:57 | RADIOLOGY REPORT (SQ) ---
EXAM DESCRIPTION: CT ABD/PELVIS NO ORAL OR IV IMAGES COMPLETED DATE/TIME: 06/21/2020 11:45 am REASON FOR STUDY: epigastric pain COMPARISON: None. TECHNIQUE: CT scan of the abdomen and pelvis performed without intravenous or oral contrast. Images reviewed with lung, soft tissue, and bone windows. Reconstructed coronal and sagittal MPR images revi ewed. All images stored on PACS. All CT scanners at this facility use dose modulation, iterative reconstruction, and/or weight based d osing when appropriate to reduce radiation dose to as low as reasonably achievable (ALARA). [facility]: Dose Right [facility]: CareDose [facility]: Dose Right [facility]: Teradose 4D [facility]: [employer] Minds RADIATION DOSE: mGy. LIMITATIONS: None. FINDINGS: LOWER CHEST: No significant findings. No nodules or infiltrates. NON-CONTRASTED LIVER, SPLEEN, ADRENALS: Evaluation limited by lack of IV contrast. No identified sign ificant masses. PANCREAS: No masses. No peripancreatic inflammatory changes. GALLBLADDER: Surgically absent. RIGHT KIDNEY AND URETER: No suspicious masses. Assessment limited by lack of IV contrast. No signif icant calcifications. No hydronephrosis or hydroureter. LEFT KIDNEY AND URETER: No suspicious masses. Assessment limited by lack of IV contrast. No signifi cant calcifications. No hydronephrosis or hydroureter. AORTA AND RETROPERITONEUM: No aneurysm. No retroperitoneal masses or adenopathy. BOWEL AND PERITONEAL CAVITY: Sigmoid diverticulosis. No obvious masses or inflammatory changes. No f ree fluid. APPENDIX: Not visualized. PELVIS, BLADDER, AND ABDOMINAL WALL:No abnormal masses. No free fluid. Bladder normal. BONES: Compression fracture L1 greater than 75% height loss. Mild retropulsion. OTHER: No other significant finding. IMPRESSION: 1. Recent compression fracture L1. Mild retropulsion. 2. Diverticulosis without evidence of diverticulitis. COMMENT: Quality ID # [id number]: Final reports with documentation of one or more dose reduction techniques (e.g., Automated exposure control, adjustment of the mA and/or kV according to patient size, use of iterative reconstruction technique) TECHNICAL DOCUMENTATION: JOB ID: [id number] 2010 [employer]- All Rights Reserved Reading location - IP[facility]workstation name: [email or web address]
[2020-06-21] MEDS ORDERED: MAG HYDROX/AL HYDROX/SIMETH SUSP 30 ML UDCUP PO ONE (12:59)
[2020-06-21] MEDS ORDERED: OXYCODONE-ACETAMINOPHEN 5-325 MG TABLET PO ONE (14:55)
== END 2020-06-21 15:34 | disposition home or self-care (01) ==
LOC: ER 09:02
DX: K21.9 Gastro-esophageal reflux disease without esophagitis (principal); I12.9 Hypertensive chronic kidney disease with stage 1 through stage 4 chronic kidney disease, or unspecified chronic kidney disease; N18.4 Chronic kidney disease, stage 4 (severe); K57.30 Diverticulosis of large intestine without perforation or abscess without bleeding; K59.09 Other constipation; M54.9 Dorsalgia, unspecified; G89.29 Other chronic pain; R10.13 Epigastric pain; R10.816 Epigastric abdominal tenderness; I25.10 Atherosclerotic heart disease of native coronary artery without angina pectoris; Z79.899 Other long term (current) drug therapy; Z87.891 Personal history of nicotine dependence; Z88.2 Allergy status to sulfonamides
CPT/HCPCS: 99285; 96374; 36415; 83690; 85025; 80053; 81001; 74176; A9270 ×2; C9113